=== PATIENT | male | born 1970 ===

== ENCOUNTER 2020-02-02 10:04 | Outpatient (REF) | payer OTHER, MEDICARE, SELFPAY ==
--- NOTE | 2020-02-02 10:12 | XR_ITS ---
EXAMINATION: BILATERAL KNEE X-RAY CLINICAL INFORMATION: Pain COMPARISON: None TECHNIQUE: 3 views of each knee FINDINGS: Left: Bone alignment is normal. No fracture or dislocation is seen. The joint spaces are normal. There is no joint effusion. Right: Bone alignment is normal. No fracture or dislocation is seen. The joint spaces are normal. There is no joint effusion. IMPRESSION: Unremarkable exam.
== END 2020-02-02 10:05 | disposition home or self-care (01) ==
LOC: HO.XRAY 10:04
PROVIDERS: PCP Internal Medicine; Visit Provider Internal Medicine
DX: M25.561 Pain in right knee (principal); M25.562 Pain in left knee
CPT/HCPCS: 73562

== ENCOUNTER 2020-03-18 13:01 | Outpatient (REF) | payer OTHER, SELFPAY | END 2020-03-18 13:02 | disposition home or self-care (01) | LOC: HO.LAB 13:01 | PROVIDERS: Visit Provider Internal Medicine | DX: Z20.828 Contact with and (suspected) exposure to other viral communicable diseases (principal) | CPT/HCPCS: C9803; U0003 ==

== ENCOUNTER 2020-04-11 11:06 | Outpatient (REF) | payer OTHER, SELFPAY ==
[2020-04-11 13:06] LABS: MANUAL DIFF FLAG NO
[2020-04-11 13:15] LABS: Basophils Absolute Auto 0.1 X10*3/uL (0.0-0.2); Basophils Percent Auto 0.8 % (0-2); Eosinophils Absolute Auto 0.3 X10*3/uL (0.0-0.4); Eosinophils Percent Auto 2.2 % (0-4); Hemoglobin 12.2 g/dl (14.0-18.0); Imm Gran Abs Auto 0.04 X10*3/uL (0.00-0.03); Imm Gran Pct Auto 0.3 % (0.0-0.4); Lymphocytes Percent Auto 16.2 % (20-40); Mean Corpuscular HGB Conc 30.5 g/dl (31.0-36.0); Mean Corpuscular Hemoglobin 27.5 pg (27.0-33.0); Mean Corpuscular Volume 90.3 fL (80-98); Mean Platelet Volume 9.5 fL (9.4-12.4); Monocytes Absolute Auto 1.3 X10*3/uL (0.1-1.2); Monocytes Percent Auto 10.4 % (2-11); Neutrophils Absolute Auto 8.5 X10*3/uL (2.0-8.3); Neutrophils Percent Auto 70.1 % (45-73); Platelet Count 584 X10*3/uL (160-400); Red Blood Count 4.43 X10*6/uL (4.60-5.80); Red Cell Distribution Width 12.8 % (11.0-16.0); White Blood Count 12.2 X10*3/uL (4.8-10.8)
== END 2020-04-11 11:07 | disposition home or self-care (01) ==
LOC: HO.LAB 11:06
PROVIDERS: PCP Internal Medicine; Referring Provider Internal Medicine; Visit Provider Internal Medicine
DX: R10.32 Left lower quadrant pain (principal); R19.7 Diarrhea, unspecified; Z20.828 Contact with and (suspected) exposure to other viral communicable diseases
CPT/HCPCS: 36415; 80053; 85025; C9803; U0003

== ENCOUNTER 2020-04-12 13:15 | Outpatient (REF) | payer OTHER, SELFPAY ==
[2020-04-13 12:19] LABS: CDIFF Ag Negative (Negative); CDIFF Internal ctrl Dots and bkg OK (V); CDiff Toxin Negative (Negative)
== END 2020-04-12 13:16 | disposition home or self-care (01) ==
LOC: HO.LNP 13:15
PROVIDERS: Visit Provider Internal Medicine
DX: R10.32 Left lower quadrant pain (principal); R19.7 Diarrhea, unspecified
CPT/HCPCS: 87045; 87046; 87177; 87209; 87324; 87449

== ENCOUNTER 2020-04-22 08:37 | Outpatient (REF) | payer OTHER, SELFPAY ==
[2020-04-22 09:41] LABS: MANUAL DIFF FLAG NO
[2020-04-22 09:42] LABS: Basophils Absolute Auto 0.1 X10*3/uL (0.0-0.2); Basophils Percent Auto 0.6 % (0-2); Eosinophils Absolute Auto 0.5 X10*3/uL (0.0-0.4); Eosinophils Percent Auto 6.2 % (0-4); Hematocrit 39.7 % (42-52); Hemoglobin 12.3 g/dl (14.0-18.0); Imm Gran Abs Auto 0.02 X10*3/uL (0.00-0.03); Imm Gran Pct Auto 0.3 % (0.0-0.4); Lymphocytes Absolute Auto 2.2 X10*3/uL (1.2-4.9); Lymphocytes Percent Auto 27.6 % (20-40); Mean Corpuscular Hemoglobin 27.7 pg (27.0-33.0); Mean Corpuscular Volume 89.4 fL (80-98); Mean Platelet Volume 9.9 fL (9.4-12.4); Monocytes Absolute Auto 0.9 X10*3/uL (0.1-1.2); Monocytes Percent Auto 11.6 % (2-11); Neutrophils Absolute Auto 4.3 X10*3/uL (2.0-8.3); Neutrophils Percent Auto 53.7 % (45-73); Platelet Count 293 X10*3/uL (160-400); Red Blood Count 4.44 X10*6/uL (4.60-5.80); Red Cell Distribution Width 12.8 % (11.0-16.0); White Blood Count 7.9 X10*3/uL (4.8-10.8)
[2020-04-22 10:12] LABS: Alanine Aminotransferase < 6 U/L (0-40); Albumin Level 4.2 g/dL (3.5-5.0); Alkaline Phosphatase 55 U/L (39-117); Anion Gap 12 (12-20); Aspartate Amino Transferase 16 U/L (5-37); Bilirubin Direct 0.3 mg/dL (0.0-0.5); Bilirubin Total 0.9 mg/dL (0.0-1.0); Blood Urea Nitrogen 21 mg/dL (9-16); Calcium 9.8 mg/dL (8.4-10.2); Carbon Dioxide 29 mmol/L (22-29); Chloride 102 mmol/L (96-108); Cholesterol 189 mg/dL; Estimated Glomerular Filt Rate > 60; Glucose Random 105 mg/dL (60-115); HDL Cholesterol 52 mg/dL; LDL Cholesterol Calculated 116 mg/dl; Potassium 4.4 mmol/l (3.3-5.1); Sodium 139 mmol/L (135-145); Total Protein 6.9 g/dL (6.5-8.0); Triglycerides 107 mg/dL
[2020-04-22 10:30] LABS: TSH reflex Free T4 1.02 mIU/mL (0.32-4.0); Vitamin D 25-OH Total 44.6 ng/mL (>30)
== END 2020-04-22 08:38 | disposition home or self-care (01) ==
LOC: HO.LAB 08:37
PROVIDERS: PCP Internal Medicine; Visit Provider Internal Medicine
DX: Z00.00 Encounter for general adult medical examination without abnormal findings (principal)
CPT/HCPCS: 36415; 80048; 80061; 80076; 82306; 84443; 85025

== ENCOUNTER 2020-05-05 08:49 | Outpatient (REF) | payer OTHER, SELFPAY | END 2020-05-05 08:50 | disposition home or self-care (01) | LOC: HO.LAB 08:49 | PROVIDERS: Visit Provider Internal Medicine | DX: Z20.822 Contact with and (suspected) exposure to COVID-19 (principal) | CPT/HCPCS: 36415; C9803; U0003 ==

== ENCOUNTER 2020-11-11 10:01 | Outpatient (REF) | payer OTHER, SELFPAY ==
--- NOTE | ~2020-11-11 | US_ITS ---
EXAMINATION: US ABDOMEN COMPLETE CLINICAL INFORMATION: Abdominal pain. COMPARISON: CT abdomen and pelvis 05/24/2020. Ultrasound abdomen complete 07/14/2015. TECHNIQUE: Real-time imaging of the abdominal viscera. FINDINGS: PANCREAS: Normal. ABDOMINAL AORTA: The proximal, mid, and distal segments are normal in caliber. INFERIOR VENA CAVA: Visualized portions are normal. LIVER: The liver is normal in size and contour. There are hyperechoic areas seen in the periportal region. No corresponding abnormality is seen on CT May 2020 and this may be related to focal fatty infiltration. The largest area measures 1.2 x 1 x 1.2 cm. No other focal liver lesion is seen. There is no biliary duct dilatation. GALLBLADDER: Normal. The gallbladder is physiologically distended without evidence of stones, sludge, polyps, wall thickening or pericholecystic fluid. COMMON BILE DUCT: Normal in caliber measuring 0.3 cm in diameter. RIGHT KIDNEY: There is mild caliectasis. This is similar to previous exam. No renal calculi or focal parenchymal lesions. The kidney measures 10.8 cm in maximum dimension. LEFT KIDNEY: Mild caliectasis. This is similar to previous exam. No renal calculi or focal parenchymal lesions. The kidney measures 10.3 cm in maximum dimension. SPLEEN: Normal. The spleen measures 9.8 cm in maximum dimension. FREE FLUID: None. US/US abdomen complete IMPRESSION: Hyperechoic areas seen in the central periportal region of the liver. No corresponding abnormality seen on recent CT scan this may be related to focal fatty infiltration. This could be further evaluated with liver MRI if clinically indicated. Mild bilateral caliectasis similar to previous exams.
== END 2020-11-11 10:02 | disposition home or self-care (01) ==
LOC: HO.HMGCX 10:01
PROVIDERS: PCP Internal Medicine; Visit Provider Internal Medicine
DX: R10.10 Upper abdominal pain, unspecified (principal)
CPT/HCPCS: 76700

== ENCOUNTER 2020-11-22 10:47 | Outpatient (REF) | payer OTHER, SELFPAY | END 2020-11-22 10:48 | disposition home or self-care (01) | LOC: HO.LAB 10:47 | PROVIDERS: PCP Internal Medicine; Visit Provider Internal Medicine | DX: Z20.822 Contact with and (suspected) exposure to COVID-19 (principal) | CPT/HCPCS: C9803; U0003; U0005 ==

== ENCOUNTER → 2021-08-10 09:22 | Outpatient (BNVA) | payer OTHER, SELFPAY | PROVIDERS: PCP Internal Medicine; Visit Provider Urology | DX: N40.1 Benign prostatic hyperplasia with lower urinary tract symptoms (principal); N13.8 Other obstructive and reflux uropathy; R35.1 Nocturia; R35.0 Frequency of micturition; R39.15 Urgency of urination | CPT/HCPCS: 51798; 99202 ==

== ENCOUNTER → 2021-11-16 10:50 | Outpatient (BNVA) | payer OTHER, SELFPAY | PROVIDERS: PCP Internal Medicine; Visit Provider Urology | DX: N40.1 Benign prostatic hyperplasia with lower urinary tract symptoms (principal); R35.0 Frequency of micturition; R39.15 Urgency of urination; N40.0 Benign prostatic hyperplasia without lower urinary tract symptoms; N31.8 Other neuromuscular dysfunction of bladder | CPT/HCPCS: 51798; 99212 ==

== ENCOUNTER → 2022-01-02 13:13 | Outpatient (BNVA) | payer OTHER, SELFPAY | PROVIDERS: PCP Internal Medicine; Referring Provider Internal Medicine; Visit Provider Internal Medicine | DX: R60.0 Localized edema (principal) | CPT/HCPCS: 93005; 99202 ==

== ENCOUNTER → 2022-01-04 10:36 | Outpatient (BNVA) | payer OTHER, SELFPAY | PROVIDERS: PCP Internal Medicine; Visit Provider Urology | DX: N32.0 Bladder-neck obstruction (principal); R35.1 Nocturia; R39.15 Urgency of urination | CPT/HCPCS: 52000; 99212 ==

== ENCOUNTER → 2022-01-26 10:30 | Outpatient (REF) | payer OTHER, SELFPAY ==
--- NOTE | 2022-01-26 10:33 | CA_ITS ---
Transthoracic Echocardiogram Patient (Last, First, Middle): Roshan Beach, Gender: Male Date of : 1970 Age: 51 Procedure Date: 01/26/2022 Procedure Type: Transthoracic Echocardiogram Location: OP Height: 172.72 cm Weight: 67.13 kg BSA: 1.80 m2 Heart Rate: bpm BP: 112 / 80 mmHg Executive Candidate Developer: TO Referring MD: Toni Rolle MD Symptoms: R60.0 - Localized edema Study Quality: Fair ECG Rhythm: Sinus Conclusions: - The left ventricular systolic function is mildly decreased. The visually estimated ejection fraction is between 40-45%. - No obvious valvular pathology seen on this study. Findings Left Ventricle Mildly increased left ventricular cavity size. There is normal left ventricular wall thickness. The left ventricular systolic function is mildly decreased. The visually estimated ejection fraction is between 40-45%. There is mild global hypokinesis. Diastolic function is normal for age. Right Ventricle Normal right ventricular cavity size and systolic function. Atria Both atria are normal in size. Aortic Valve There is a normal trileaflet aortic valve. There is no aortic valve stenosis. There is no aortic valve regurgitation. Mitral Valve The mitral valve appears normal. There is trace mitral valve regurgitation. There is no mitral valve stenosis. Pulmonic Valve The pulmonic valve is likely normal. Tricuspid Valve Normal tricuspid valve structure. There is mild tricuspid valve regurgitation. There is no evidence of pulmonary hypertension. Great Vessels The asc aorta is normal in size. Venous The inferior vena cava is normal in size and collapses greater than 50% with inspiration. Pericardium/Pleural There is no evidence of pericardial effusion. Prior Study Comparison Changes noted compared to prior study dated: 08/02/1999. LVEF slightly lower than prior study. Recommendations, Care & Conclusions No obvious valvular pathology seen on this study. Measurements 2D Linear Measurements IVSd: 0.78 0.6-0.9/0.6-1.0 cm LVIDd: 5.73 3.9-5.3/4.2-5.9 cm LVIDd Index: 3.18 2.4-3.2/2.2-3.1 cm/m2 LVIDs: 4.29 2.0-3.6 cm LVPWd: 0.76 0.7-1.1 cm LA Diam: 3.20 2.7-3.8/3.0-4.0 cm LAIDs Index: 1.78 1.5-2.3 cm/m2 LV Mass: 203.79 67-162/88-224 g LV Mass Index: 113.22 43-95/49-115 g/m2 LVOT Diam: 2.10 3.0+(-)1.3 cm 2D Systolic Function EF 4C: 49.10 >55% Mitral Valve MV Pk E: 0.51 MV PK A: 0.39 MV Decel Time: 121.00 E/A: 1.30 E'Lateral: 8.92 E'Medial: 5.33 E/E' Med: 9.60 E/E' Lat: 5.80 PHT: 35.00 MVA PHT: 6.29 Decel [place]: 4.25 Aortic Valve AoV Pk Bernard: 1.33 AoV Mn Bernard: 0.92 AoV VTI: 0.24 AoV Pk Grad: 7.00 Aov Mn Grad: 4.00 LORENZO Cont.VTI: 2.11 LVOT LVOT Pk Bernard: 0.77 LVOT Mn Bernard: 0.51 LVOT VTI: 0.15 LVOT Pk Grad: 2.00 LVOT Mn Grad: 1.00 LVOT Diam: 2.10 LVOT Area: 3.46 Diastolic Function MV Pk E: 0.51 MV Pk A: 0.39 E/A: 1.30 E'Medial: 5.33 E/E' Med: 9.60 E' Laterial: 8.92 E/E' Lat: 5.80 Right Ventricle TAPSE (mm): 18.70 TVS' Bernard: 10.10 Tricuspid Valve TR Pk Bernard: 2.46 TR Pk Grad: 24.00 RA Press: 3.00 RVSP: 27.00 Great Vessels Aorta Sinus of Valsalva: 3.05 2.0-3.[address] [place]: 2.07 1.7-3.4 cm Ao Asc: 3.20 2.1-3.4 cm Updated in Other Vendor System with Status of Final Toni Rolle MD electronically signed on 01/28/2022 11:05:27 AM with status of Final
== END ==
LOC: HO.CARD 10:30
PROVIDERS: Visit Provider Internal Medicine
DX: R60.0 Localized edema (principal)
CPT/HCPCS: 93306

== ENCOUNTER → 2022-03-06 11:03 | Outpatient (BNVA) | payer OTHER, SELFPAY | PROVIDERS: PCP Internal Medicine; Visit Provider Urology | DX: N32.0 Bladder-neck obstruction (principal); R35.1 Nocturia | CPT/HCPCS: Q3014 ==

== ENCOUNTER → 2022-04-03 09:32 | Outpatient (REF) | payer OTHER, SELFPAY ==
--- NOTE | ~2022-04-03 | NM_ITS ---
Lexiscan Myocardial perfusion study Indication: Cardiomyopathy, assess for coronary disease and ischemia Technique: The patient was brought in for a Lexiscan perfusion study on 04/03/2022 and was injected 0.4 mg of Lexiscan intravenously. Within a minute of this injection 25 mCi of sestamibi was given intravenously. Images were obtained using the SPECT gamma camera interlaced with the gating device. Images were obtained in supine position. Resting perfusion study was performed on 04/04/2022. Patient was administered 25 mCi of sestamibi intravenously at rest. Images were then obtained in supine position. Images were processed with the software and compared side to side in short axis, horizontal long axis and vertical long axis views. Total DLP 89mGy-cm. Findings: Raw acquisition reviewed. The stress perfusion study showed diminished tracer uptake along the inferior wall, basal inferior septum. There is significant improvement with CT attenuation correction suggestive of diaphragmatic attenuation artifact. The gated study shows diminished LV systolic function with calculated LVEF of 46%. LV cavity is normal in size. The gated study shows globally reduced wall thickening and contraction of segments. Resting study shows diminished tracer uptake along the inferior wall. Slight improved compared to stress acquisition. However, with CT attenuation correction resolves completely. Gating at rest reveals globally reduced wall thickening and contraction with LVEF of 48%. The findings are consistent with inferior defect with reversible and fixed components, suspected to be from diaphragmatic attenuation artifact. NM/NM jessy perf SPECT rest & str Impression: 1. Myocardial perfusion imaging study shows likely normal myocardial perfusion. 2. Gated LVEF is 46% during stress and 48% during rest. 3. Transient ischemic dilatation not present. EKG component of the test reported separately.
--- NOTE | 2022-04-03 10:19 | CA_ITS ---
Acquisition Time: 2022-04-03 10:26:24 Total Exercise Time: 00:02:00 Test Indications: I42.9 Medications: SEE CHART Protocol: LEXISCAN Max HR: 150 BPM 89% of Pred: 168 BPM Max BP: 128/080 mmHG Max Work Load: 1.0 METS Pharmacological stress test with Lexiscan injection, while sitting and kicking his legs, without anginal symptoms, without arrythmia, with normotensive response to injection, with nondiagnostic EKG for ischemia. In recovery he was treated with Aminophylline 75mg IVP to reverse Lexiscan. Nuclear images pending. Test reviewed with Dr Sims. Referred By: Toni Rolle Overread By: SIDDHARTH OBRIEN
== END ==
LOC: HO.CARD 09:32
PROVIDERS: Visit Provider Internal Medicine
DX: I42.9 Cardiomyopathy, unspecified (principal)
CPT/HCPCS: 78452; 93017; A9500; J0280

== ENCOUNTER 2022-05-21 05:54 | Day surgery (SDC) | payer OTHER, SELFPAY ==
[2022-05-21] VITALS (7 sets, daily range): BP systolic 95–153; BP diastolic 64–98; PULSE 101–117; RESP 20; TEMP 36.8–37.4; O2SAT 95–99; BMI 27.7
[2022-05-21] MEDS: Lactated Ringers 1,000 ML 50 ML IVCONT (06:44)
[2022-05-21 06:49] LABS: Glucose, Whole Blood 186 mg/dL (60-115)
--- NOTE | 2022-05-21 07:22 | HO.ANESPROP2 ---
HPI - Anesthesia Eval Consult details Narrative: laser prostate PMFSH Active Problems Active Problems: All Active Problems (Updated 01/28/22 @ 12:31 by Toni Rolle MD) Cardiomyopathy (Acute) Leg edema (Acute) Nocturia more than twice per night (Acute) Urinary urgency (Acute) Bladder outlet obstruction (Acute) Past Medical History Medical History CKD (chronic kidney disease) Diabetes mellitus, type II Idiopathic scoliosis Mental disability Microalbuminuria Pain of right lower extremity Vitamin D deficiency Family History Family History Father No problems noted. Mother Heart problem Family history of problems with anesthesia: No Surgical History Surgical History History of surgery History of Problems with Anesthesia: No Social History Social History Patient Tobacco Use Status: Never used Tobacco Use of substances other than those prescribed or required for medical reasons: No Are you DNR?: No Advance Directives: No Advance Directives Information Provided: Yes Meds Allergies Allergy/AdvReac Type Severity Reaction Status Date / Time No Known Allergies Allergy Verified 05/14/22 15:46 Active Medications: Current Medications Lactated Ringer's (Lr) 1,000 mls @ 50 mls/hr IVCONT .Q20H KASSY Last Admin: 05/21/22 06:44 Dose: 50 mls/hr Home Medications Medication Instructions Recorded Confirmed Last Taken Type atorvastatin 40 mg tablet 40 mg PO DAILY 11/15/21 03/14/22 Unknown History blood sugar diagnostic (Freeyle #10 ea 11/15/21 01/02/22 Unknown History Lite Strips) ergocalciferol (vitamin D2) 1,250 1,250 mcg PO QWEEK 11/15/21 03/14/22 Unknown History mcg (50,000 unit) capsule ferrous sulfate 325 mg (65 mg 325 mg PO BID 11/15/21 03/14/22 Unknown History iron) tablet,delayed release lisinopril 40 mg tablet 40 mg PO DAILY 11/15/21 03/14/22 Unknown History melatonin 5 mg tablet 5 mg PO BEDTIME 11/15/21 03/14/22 Unknown History omeprazole 20 mg capsule,delayed 20 mg PO QAM 11/15/21 03/14/22 Unknown History release pantoprazole 40 mg tablet,delayed 40 mg PO DAILY 11/15/21 03/14/22 Unknown History release sennosides 8.6 mg tablet (senna) 17.2 mg PO DAILY 11/15/21 03/14/22 Unknown History lancets 28 gauge (FreeStyle #100 ea 01/03/22 Unknown History Lancets) Exam Exam Date and Time: May 21, 2022 0722 Height,Weight and Vital Signs: Height 5 ft 4 in Weight 73.255 kg Last Vital Signs Temp 98.2 F 05/21/22 06:30 Pulse 103 H 05/21/22 06:51 Resp 20 05/21/22 06:30 BP 153/98 H 05/21/22 06:30 Pulse Ox 99 05/21/22 06:30 O2 Del Method 05/21/22 06:30 Pertinent Lab Results Pertinent Lab Results: Laboratory Tests 05/21/22 06:40 POC Glucose 186 H Airway Mallampati Class: III (Limited mouth opening, bucked teeth.) TM Dist: >3cm Neck ROM: Full Loose/Missing/Broken Teeth: Yes and Upper Heart: ok Lungs: ok Assessment and Plan Assessment Anesthesia Assessment: Anesthesia Plan Discussed and Chart Reviewed Final Anesthetic Review Family History of Problems with Anesthesia: No History of Problems with Anesthesia: No NPO: Yes ASA Class: IV Final Preanesthetic Review: No Changes in Pt Med Stat, Meds/Allgs Chart Reviewed, Consent Obtained/Reviewed and Anes Risks/Benef Reviewed Patient Risk: High Procedure Risk: Low Anesthetic Plan Anesthetic Plan: GA and Agree w/ Assess. and Plan Disposition: Standard PACU
--- NOTE | 2022-05-21 07:35 | MHC.SHP ---
Pre-Procedural Eval Section A Date of Service: 05/21/22 The patient is an INPATIENT: No Changes since office visit: No Cold of Flu in the past 2 weeks, No New Medical Problems, No Changes in Medication and No Patient answered all questions The History & Physical has been completed within 30 days and I have reviewed it.: Yes Section B Chief Complaint: Bladder-neck obstruction Allergies: Allergies Allergy/AdvReac Type Severity Reaction Status Date / Time No Known Allergies Allergy Verified 05/14/22 15:46 Review of Systems Sugical H&P ROS: Negative: Constitution, Cardiovascular, Respiratory, Neurological, Psychiatric, Hem-Onc, Allergic/Immunologic, Gastrointestinal, Genitourinary, Musculoskeletal, Integumentary, Endocrine and Eyes/Ears/Nose/Throat Exam Surgical H&P Exam: Normal: HEENT, Normal: Heart, Normal: Lungs, Normal: Extremities, Normal: Abdomen, Normal: Skin and Normal: Neurological Plan Diagnosis/Plan: Unchanged (green loght laser prostate enucleation) I have reviewed the history and physical and performed a pertinent physical examination on my patient. No changes have occurred unless specified. Time Spent With Patient Time: Total time managing care of this patient today ____ minutes.
--- NOTE | 2022-05-21 08:31 | W.PM.OPN ---
Operative Note Operative Note Date of Service: 05/21/22 Narrative: PreOperative Diagnosis: Bladder outlet obstruction Post Operative Diagnosis: Bladder outlet obstruction Procedure: GreenLight Laser Enucleation of the prostate Surgeon: Dr Charles Castaneda Anesthesia: General History of bladder outlet obstruction. Treated with alpha-michelle and other medications. Still with symptoms. On cystoscopy in office has tight bladder neck. Recommendation for prostate procedure with laser enucleation of prostate. Risks and benefits have been discussed. Focus was placed on development of retrograde ejaculation which is a normal part of this procedure. Procedure: After informed consent was verified the patient was brought to the operating room and placed in a supine position. Anesthesia was administered per protocol. Patient was placed in modified dorsal lithotomy position and prepped and draped in a sterile fashion. Safety pause time-out was confirmed. Antibiotics have been given. A Twenty-four Togolese laser cystoscope was inserted per urethra. No abnormalities were found of the anterior and bulbar urethra. The bladder was examined and both ureteric orifices were seen in their normal positions away from the area of interest. Using a GreenLight laser with settings of 80 w incisions were made at the 5 and 7 o'clock position. The incisions were taken down from the bladder neck down to the level of the veru. These were gradually deepened in order to define the lateral aspects of the median lobe area. Once clearly defined they will also extended in the lateral directions in order to create a deep groove. The median lobe was then ablated and enucleated tissue released into the bladder with the laser power increased to 120 W. Once the median lobe area had been cleared attention was directed to the lateral lobes. Starting with the patient's left lateral lobe. First the 05:00 o'clock groove was further developed. This was moved in the lateral direction to undermine the tissue on the lateral side running from the bladder neck to the prostate apex. Focus was then placed on the laser at the 1 o'clock position to developing a secondary groove down to the level of bladder fibers. The creation of a second deep groove defined a segment of intervening tissue similar to a slice of orange. At the apex of the prostate the 2 grooves were linked the us releasing the intervening tissue. This tissue was then removed with a combination of enucleation and ablation working from the apex toward the bladder neck. A similar procedure was repeated on the patient's right-hand side. The only differences being the position of the lateral groove at he 7 'oclock positioin and the secondary groove at the 11 o'clock position, Otherwise the procedure was developed in a mirror fashion. After the majority of tissue had been debulked remnant tissue was ablated with the side fire laser and the curve of the prostate followed up each side wall clearly defining the anterior remnant strip that remained between the 11 and 1 o'clock positions. When this was had been completed debris and pieces of prostate were removed from the bladder with irrigation. Both ureteric orifices were reviewed again in shown to be patent in away from any areas of energy damage. The apical area was reviewed in any stray ooze was controlled. A 22 Togolese 30 cc balloon Varghese catheter was placed over a stylet into the bladder. Clear efflux was obtained upopn irrigation with a Ashley piston syringe. 30 cc was placed in the balloon and gentle traction was placed. A snap was used to hold tension on the catheter to control bleeding during patient moved and transported. A drainage bag was placed. Once transportation is complete to the PACU the snap will be removed. The patient tolerated the procedure well, he was extubated in the operating and transferred in a stable condition to the recovery area. Total Power 25 kW Lasing time [] Pathology: - Drains: Varghese catheter
[2022-05-21] MEDS: traMADoL HCL 50 MG TABLET PO (08:43)
== END 2022-05-21 09:39 | disposition home or self-care (01) ==
PROVIDERS: PCP Internal Medicine; Visit Provider Urology
PROC: (CPT 52648; principal; 2022-05-21 07:30)
DX: N32.0 Bladder-neck obstruction (principal); R35.1 Nocturia; E11.22 Type 2 diabetes mellitus with diabetic chronic kidney disease; I12.9 Hypertensive chronic kidney disease with stage 1 through stage 4 chronic kidney disease, or unspecified chronic kidney disease; N18.9 Chronic kidney disease, unspecified; R62.50 Unspecified lack of expected normal physiological development in childhood; E55.9 Vitamin D deficiency, unspecified; R60.0 Localized edema; Z79.899 Other long term (current) drug therapy
CPT/HCPCS: 52648; 82947; J1956; J2250; J3010

== ENCOUNTER → 2022-05-24 09:59 | Outpatient (BNVA) | payer OTHER, SELFPAY | PROVIDERS: PCP Internal Medicine; Visit Provider Urology | DX: N32.0 Bladder-neck obstruction (principal) | CPT/HCPCS: 51700; 51798 ==

== ENCOUNTER → 2022-07-05 09:19 | Outpatient (BNVA) | payer OTHER, SELFPAY | PROVIDERS: PCP Internal Medicine; Visit Provider Urology | DX: R35.1 Nocturia (principal); R39.15 Urgency of urination | CPT/HCPCS: 51798; 99212 ==

== ENCOUNTER 2022-07-09 08:43 | Outpatient (REF) | payer OTHER, SELFPAY ==
--- NOTE | ~2022-07-09 | US_ITS ---
EXAMINATION: US ABDOMEN COMPLETE CLINICAL INFORMATION: Right and left upper quadrant pain. COMPARISON: Ultrasound abdomen complete 11/11/2020 and 07/14/2015. TECHNIQUE: Real-time imaging of the abdominal viscera. FINDINGS: PANCREAS: Normal. ABDOMINAL AORTA: The proximal, mid, and distal segments are normal in caliber. INFERIOR VENA CAVA: Visualized portions are normal. LIVER: The liver is enlarged with increased echogenicity with focal fatty sparing. It measures 17 cm. There is mild increased echogenicity. The liver contour is normal. No focal hepatic lesion. There is no intrahepatic biliary duct dilatation seen. GALLBLADDER: Gallbladder wall thickness measures 0.2 cm. The gallbladder is physiologically distended without evidence of stones, sludge, polyps, wall thickening or pericholecystic fluid. COMMON BILE DUCT: Normal in caliber measuring 0.2 cm in diameter. RIGHT KIDNEY: There is mild dilated caliectasis. There are vascular calcifications in the midpole measuring 0.9 x 0.3 cm. No hydronephrosis. No renal calculi or focal parenchymal lesions. The kidney measures 11.3 cm in maximum dimension. LEFT KIDNEY: There is echogenic upper pole calculi measuring 0.3 x 0.3 cm with mild caliectasis. No hydronephrosis or focal parenchymal lesions. The kidney measures 10.6 cm in maximum dimension. SPLEEN: Normal. The spleen measures 7.6 cm in maximum dimension. FREE FLUID: None. US/US abdomen complete IMPRESSION: 1. Diffuse fatty infiltration of liver with focal fatty sparing. 2. Mild dilated caliectasis right kidney. 3. Nonobstructive echogenic calculi upper pole left kidney. . 4. The rest of the abdominal ultrasound is unremarkable.
== END 2022-07-09 08:44 | disposition home or self-care (01) ==
LOC: HO.US 08:43
PROVIDERS: PCP Internal Medicine; Visit Provider Internal Medicine
DX: R10.11 Right upper quadrant pain (principal)
CPT/HCPCS: 76700

== ENCOUNTER → 2022-09-13 09:48 | Outpatient (BNVA) | payer OTHER, SELFPAY | PROVIDERS: PCP Internal Medicine; Visit Provider Urology | DX: R39.15 Urgency of urination (principal); R35.0 Frequency of micturition; R35.1 Nocturia; N32.0 Bladder-neck obstruction; Z79.899 Other long term (current) drug therapy | CPT/HCPCS: 99212 ==

== ENCOUNTER → 2022-10-18 09:24 | Outpatient (BNVA) | payer OTHER, SELFPAY | PROVIDERS: PCP Internal Medicine; Visit Provider Surgery Vascular Surgery | DX: I83.11 Varicose veins of right lower extremity with inflammation (principal) | CPT/HCPCS: 99202 ==

== ENCOUNTER 2022-11-07 10:15 | Outpatient (REF) | payer OTHER, SELFPAY ==
--- NOTE | ~2022-11-07 | US_ITS ---
EXAMINATION: US VENOUS ULTRASOUND WITH DOPPLER LOWER EXTREMITY, BILATERAL CLINICAL INFORMATION: Varicose veins of right lower extremity with inflammation. COMPARISON: None available. TECHNIQUE: Color flow triplex imaging and compression Doppler was performed to evaluate both the deep and the superficial systems of the bilateral lower extremity. To evaluate the superficial system, the examination was performed in the upright position. Color-flow Doppler ultrasound and compression ultrasound were utilized. In addition, maneuvers were utilized to demonstrate reflux. FINDINGS: Right: 1. DEEP VENOUS DOPPLER ULTRASOUND: Common Femoral Vein: Compressible, normal respiratory variation and augmented flow. Femoral vein: Compressible, normal color flow and augmentation. Popliteal Vein: Compressible, normal augmentation. Deep Reflux: Greater than 2 seconds reflux in the mid femoral vein and popliteal vein. There is no evidence of a Srivastava's cyst. 2. SUPERFICIAL VENOUS DOPPLER ULTRASOUND: GREAT SAPHENOUS VEIN: Saphenofemoral junction: 0.6 cm; No evidence of reflux. Proximal thigh: 0.2 cm; No evidence of reflux. Mid thigh: 0.2 cm; 1.6 seconds reflux Above knee: 0.2 cm; greater than 2 seconds reflux At knee: 0.1 cm; 0.8 second reflux Below knee: 0.1 cm; No evidence of reflux. Mid calf: 0.2 cm; No evidence of reflux. Ankle: 0.2 cm; 0.5 second reflux DUPLICATED GREAT SAPHENOUS VEIN: None SMALL SAPHENOUS VEIN: Saphenopopliteal junction: 0.7 cm; No evidence of reflux. Mid calf: 0.1 cm; No evidence of reflux. Distal calf: 0.2 cm; No evidence of reflux. VEIN OF GIACOMINI: None Imaged. PERFORATORS: None significant on the right; VARICOSITIES: None on the right. Left: 1. DEEP VENOUS DOPPLER ULTRASOUND: Common Femoral Vein: Compressible, normal respiratory variation and augmented flow. Femoral vein: Compressible, normal color flow and augmentation. Popliteal Vein: Compressible, normal augmentation. Deep Reflux: Greater than 1.8 second reflux in the mid femoral vein and greater than 2 seconds reflux in the popliteal vein. There is no evidence of a Srivastava's cyst. 2. SUPERFICIAL VENOUS DOPPLER ULTRASOUND: GREAT SAPHENOUS VEIN: Saphenofemoral junction: 0.5 cm; No evidence of reflux. Proximal thigh: 0.4 cm; 1.7 second reflux Mid thigh: 0 4 cm; 1.3 seconds reflux Above knee: 0.3 cm; greater than 2.4 seconds reflux At knee: 0.1 cm; No evidence of reflux. Below knee: 0.1 cm; No evidence of reflux. Mid calf: 0.1 cm; No evidence of reflux. Ankle: 0.3 cm; No evidence of reflux. DUPLICATED GREAT SAPHENOUS VEIN: None SMALL SAPHENOUS VEIN: Saphenopopliteal junction: 0.1 cm; No evidence of reflux. Mid calf: 0.1 cm; No evidence of reflux. Distal calf: 0.1 cm; No evidence of reflux. VEIN OF GIACOMINI: None Imaged. PERFORATORS: 2 mm heart doctor in the distal thigh with no reflux. 1 mm heart doctor in the proximal calf with no reflux. 4 mm heart doctor in the mid calf with no reflux. VARICOSITIES: 3 mm varicosity at the knee with greater than 2 seconds reflux. US/US venous duplex LE BI IMPRESSION: Right: No evidence of DVT. Deep venous reflux in the mid femoral and popliteal veins. Right greater saphenous vein reflux measuring maximum greater than 2 seconds at the knee. Left: No evidence of DVT. Deep venous reflux in the mid femoral and popliteal veins. Left greater saphenous vein reflux measuring maximum greater than 2.4 seconds above the knee. Perforators in the thigh and calf without reflux. Varicosity with greater than 2 seconds reflux at the knee.
== END 2022-11-07 10:16 | disposition home or self-care (01) ==
LOC: HO.US 10:15
PROVIDERS: PCP Internal Medicine; Visit Provider Surgery Vascular Surgery
DX: I83.11 Varicose veins of right lower extremity with inflammation (principal)
CPT/HCPCS: 93970

== ENCOUNTER 2022-12-11 09:03 | Outpatient (AMB) | payer OTHER, SELFPAY ==
--- NOTE | 2022-12-11 09:04 | A.OFFVIS_ITS ---
Intake Intake Visit Reasons: follow up s/p US 11/07 Intake Note: follow up bilateral LE US 11/07/22, pt states that bilateral LE are swelling and pain. Pt states that he wears compression socks as needed, seem to help a little bit but they feel very tight and he takes them off Accompanied by: Sister Allergies No Known Allergies Allergy (Verified 12/11/22 09:08) HPI follow up s/p US 11/07 HPI Details Pleasant 52-year-old gentleman presents for follow-up regarding venous insufficiency he had been complaining of pain and discomfort of bilateral lower extremities but appears to be left more so than right. He now presents for follow-up with family meds member present. He has had no other interval changes. He has had a trial of compression stockings which have provided minimal relief. [facility] Medical History CKD (chronic kidney disease) Diabetes mellitus, type II Idiopathic scoliosis Mental disability Microalbuminuria Pain of right lower extremity Vitamin D deficiency Surgical History History of surgery Family History Father No problems noted. Mother Heart problem Social History Patient Tobacco Use Status: Never used Tobacco Review of Systems Const Reports as per HPI ENT Reports no additional complaints Card Denies chest pain, Denies chest pain at rest and Denies chest pain with activity Resp Denies chest congestion and Denies cough GI Reports no additional complaints Musc Details: pain over varicosities, aching of lower extremities, swelling, cramping, heaviness and tiredness, itching Denies abnormal gait Skin/Breast Reports pruritus and Denies wounds Neuro Reports no additional complaints and Denies abnormal gait Psych Denies no additional complaints Physical Exam Const General: cooperative, healthy appearing and comfortable Orientation/consciousness: oriented to person, oriented to place and oriented to time Neck Carotids: no bruits Chest Chest palpation & inspection: normal inspection of the chest and normal palpation of entire chest wall Resp Effort & Inspection: normal respiratory effort and able to speak in complete sentences Cardio Rate: regular rate Heart sounds: S1 normal heart sound present and S2 normal heart sound present Peripheral pulses: Peripheral pulses 2+ throughout GI Inspection: Yes normal to inspection Skin Other: +2 edema, CEAP Classification C4 - skin color changes Ep - Etiology Primary As - superficial veins P - reflux General skin exam: dry skin Neuro General: oriented to person, oriented to place and oriented to time Extrem Right lower extremity: full ROM, normal capillary refill and edema Left lower extremity: full ROM, normal capillary refill and edema Psych Mental Status: mental status grossly normal Results Reviewed Results Reviewed: Brief summary of venous insufficiency testing is as follows: right great saphenous vein: Positive but small in caliber right small saphenous vein: negative right accessory vein: none present left great saphenous vein: Positive left small saphenous vein: negative left accessory vein: none present Please note there is no evidence of any venous aneurysms or significant tortuosity Assessment & Plan Assessment & Plan (1) Varicose veins of left lower extremity with inflammation: Code(s): I83.12 - Varicose veins of left lower extremity with inflammation Plan: This patient has varicose veins with inflammation. They continue to be a source of discomfort for the patient. The patient has tried conservative treatment with compression, leg elevation and exercise program for over 3 months time. They have been compliant with all treatment. This has provided minimal relief for the patient. I do not anticipate this course of treatment will alter the underlying etiology. The patient has been scheduled for lower extremity venous treatment inclusive of --- left great saphenous vein Cyanoacralate ablation. Risks, benefits, and complications of this procedure has been discussed in detail with the patient including but not limited to bleeding, infection, and the development of a DVT. The patient has demonstrated a clear understanding and has consented. We will schedule the patient as soon as possible. Thank you for allowing us to participate in this patient's care. If there are any questions or concerns please do not hesitate to contact us. Coding Level of Care Code Est Pt Level 4 (78552) Diagnoses Varicose veins of left lower extremity with inflammation I83.12
== END 2022-12-11 09:31 | disposition home or self-care (01) ==
PROVIDERS: PCP Internal Medicine; Visit Provider Surgery Vascular Surgery
DX: I83.12 Varicose veins of left lower extremity with inflammation (principal)
CPT/HCPCS: 99214

== ENCOUNTER → 2022-12-11 09:03 | Outpatient (BNVA) | payer OTHER, SELFPAY | PROVIDERS: PCP Internal Medicine; Visit Provider Surgery Vascular Surgery | DX: I83.12 Varicose veins of left lower extremity with inflammation (principal) | CPT/HCPCS: 99212 ==

== ENCOUNTER → 2022-12-20 10:16 | Outpatient (REF) | payer OTHER, SELFPAY ==
--- NOTE | 2022-12-20 10:19 | CA_ITS ---
Transthoracic Echocardiogram Patient (Last, First, Middle): Roshan Beach, Gender: Male Date of : 1970 Age: 52 Procedure Date: 12/20/2022 Procedure Type: Transthoracic Echocardiogram Location: OP Height: 182.88 cm Weight: 69.85 kg BSA: 1.91 m2 Heart Rate: bpm BP: 122 / 82 mmHg Board Winder: TO Referring MD: Toni Rolle MD Symptoms: I42.9 - Cardiomyopathy, unspecified Study Quality: Technically Difficult Conclusions: - 1. Moderately reduced LV systolic function with LVEF of 35-40% with impaired relaxation filling pattern 2. Mildly dilated right ventricle with low normal LV systolic function 3. Mildly dilated left atrium 4. Cardiac valvular Dopplers within normal limits 5. Normal RV systolic pressure 6. Upper limits normal ascending aortic size of 3.5 cm 7. No gross pericardial effusion Findings Left Ventricle Normal left ventricular cavity size. There is normal left ventricular wall thickness. The left ventricular systolic function is moderately decreased. The visually estimated ejection fraction is between 35-40%. Regional wall motion abnormalities can not be excluded due to suboptimal endocardial definition. Spectral Doppler is indicative of an impaired relaxation filling pattern. E/E prime ratio is between 8 and 15 consistent with indeterminate filling pressures. Right Ventricle Mildly increased right ventricular cavity size. There is low normal right ventricular systolic function. Atria The left atrium is mildly dilated. Interatrial shunt cannot be excluded. The right atrium is normal in size. Aortic Valve Normal aortic valve structure and function. There is no aortic valve stenosis. There is no aortic valve regurgitation. Mitral Valve Normal mitral valve structure and function. There is trace mitral valve regurgitation. There is no mitral valve stenosis. Tricuspid Valve Normal tricuspid valve structure. There is trace tricuspid valve regurgitation. The right ventricular systolic pressure is normal. The right ventricular systolic pressure is 24 mmHg. Normal right atrial pressure. There is no evidence of pulmonary hypertension. Great Vessels The pulmonary artery was not well visualized. Venous The inferior vena cava is normal in size and collapses greater than 50% with inspiration. Pericardium/Pleural There is no evidence of pericardial effusion. Prior Study Comparison Changes noted compared to prior study dated: 01/26/2022. LV systolic function is marginally reduced Measurements 2D Linear Measurements IVSd: 0.80 0.6-0.9/0.6-1.0 cm LVIDd: 4.60 3.9-5.3/4.2-5.9 cm LVIDd Index: 2.41 2.4-3.2/2.2-3.1 cm/m2 LVIDs: 3.70 2.0-3.6 cm LVPWd: 0.80 0.7-1.1 cm LA Diam: 2.80 2.7-3.8/3.0-4.0 cm LAIDs Index: 1.47 1.5-2.3 cm/m2 LV Mass: 146.63 67-162/88-224 g LV Mass Index: 76.77 43-95/49-115 g/m2 LVOT Diam: 2.00 3.0+(-)1.3 cm 2D Systolic Function EF 4C: 39.10 >55% Mitral Valve MV Pk E: 0.48 MV PK A: 0.38 MV Decel Time: 135.00 E/A: 1.30 E'Lateral: 6.64 E'Medial: 4.24 E/E' Med: 11.40 E/E' Lat: 7.30 PHT: 39.00 MVA PHT: 5.64 Decel Dooly: 3.60 Aortic Valve AoV Pk Bernard: 1.25 AoV Mn Bernard: 0.86 AoV VTI: 0.21 AoV Pk Grad: 6.00 Aov Mn Grad: 3.00 LORENZO Cont.VTI: 1.74 LVOT LVOT Pk Bernard: 0.62 LVOT Mn Bernard: 0.47 LVOT VTI: 0.11 LVOT Pk Grad: 2.00 LVOT Mn Grad: 1.00 LVOT Diam: 2.00 LVOT Area: 3.14 Diastolic Function MV Pk E: 0.48 MV Pk A: 0.38 E/A: 1.30 E'Medial: 4.24 E/E' Med: 11.40 E' Laterial: 6.64 E/E' Lat: 7.30 Right Ventricle TAPSE (mm): 16.10 TVS' Bernard: 9.46 Tricuspid Valve TR Pk Bernard: 2.29 TR Pk Grad: 21.00 RA Press: 3.00 RVSP: 24.00 Great Vessels Aorta Sinus of Valsalva: 3.00 2.0-3.[address] Ridge: 2.30 1.7-3.4 cm Ao Asc: 3.50 2.1-3.4 cm Updated in Other Vendor System with Status of Final Jacob Naqvi MD electronically signed on 12/21/2022 12:54:04 PM with status of Final
== END ==
LOC: HO.CARD 10:16
PROVIDERS: PCP Internal Medicine; Visit Provider Internal Medicine
DX: I42.9 Cardiomyopathy, unspecified (principal)
CPT/HCPCS: 93306

== ENCOUNTER → 2022-12-20 10:19 | Outpatient (BNV) | payer OTHER, SELFPAY | PROVIDERS: PCP Internal Medicine; Visit Provider Internal Medicine Cardiovascular Disease | DX: I42.9 Cardiomyopathy, unspecified (principal) | CPT/HCPCS: 93306 ==

== ENCOUNTER 2023-01-01 09:25 | Outpatient (AMB) | payer OTHER, SELFPAY ==
--- NOTE | 2023-01-01 09:47 | A.OFFVIS_ITS ---
Intake Vital Signs 01/01/23 09:48 Height 5 ft 4 in Weight 154 lb 12.232 oz BMI 26.6 BP 134/80 Blood Pressure Location Lt brachial Position Sitting Pulse 88 Intake Visit Reasons: 1 year follow up Intake Note: 1 year follow up w/ EKG Grader Green Meat Required: No Accompanied by: Employee Allergies No Known Allergies Allergy (Verified 01/01/23 09:50) Medication List - Last Reconciled 01/01/23 by Toni Rolle MD atorvastatin 40 mg PO DAILY blood sugar diagnostic (FreeStyle Lite Strips) As directed ferrous sulfate 325 mg PO BID lancets (FreeStyle Lancets) As directed lisinopril 40 mg PO DAILY melatonin 5 mg PO BEDTIME metformin 500 mg PO BID pantoprazole 40 mg PO DAILY sennosides (senna) 17.2 mg PO DAILY terazosin 10 mg PO BEDTIME tolterodine ER 4 mg PO DAILY triamcinolone acetonide 0.1% 1 appl topical BID-TID HPI HPI Comments History of Present Illness Details Roshan returns for follow-up. In the past, he was seen regarding leg swelling. Workup showed evidence of cardiomyopathy. However, if not seen him since for follow-up. Sister comes with him and access the supervisor treating and pumping. Patient himself has developmental delay and hence he can not give any information at all. She states she generally doing fine. Has not seen him look or feel short of breath. Leg swelling is also improved. Has got comorbidities include diabetes, hypertension dyslipidemia. No documented coronary disease. [facility] Medical History (Updated 01/01/23 @ 11:46 by Toni Rolle MD) Diabetes mellitus, type II CKD (chronic kidney disease) Vitamin D deficiency Microalbuminuria Pain of right lower extremity Idiopathic scoliosis Mental disability Surgical History History of surgery Family History Father No problems noted. Mother Heart problem Social History Patient Tobacco Use Status: Never used Tobacco Review of Systems Const Denies weakness ENT Denies dizziness Card Denies chest pain, Denies chest pain with activity, Denies syncope, Denies rapid heart rate, Denies pedal edema, Denies edema, Denies leg edema, Denies lightheadedness, Denies palpitations, Denies dyspnea, Denies dyspnea on exertion and Denies orthopnea Resp Denies cough, Denies dyspnea and Denies dyspnea on exertion GI Denies hematochezia and Denies change in stool character Musc Denies abnormal gait, Denies muscle cramps, Denies muscle weakness, Denies numbness, Denies radiating pain into limb and Denies tingling Neuro Denies abnormal gait, Denies dizziness, Denies syncope, Denies numbness, Denies tingling and Denies weakness Endo Denies palpitations Physical Exam Vital Signs: Last Vital Signs Pulse 88 01/01/23 09:48 BP 134/80 01/01/23 09:48 BMI result Body Mass Index 26.6 Const General: comfortable and no acute distress Orientation/consciousness: patient oriented x3 HEENT Other: Unremarkable Head: Yes normal to inspection Neck Neck: Yes normal visual inspection Chest Chest palpation & inspection: normal inspection of the chest Resp Auscultation: clear to auscultation bilaterally Cardio Palpation: normal PMI Heart sounds: S1 normal heart sound present, S2 normal heart sound present, no gallops, Murmur heart sound present systolic I/ and at the right sternal bor igor and no rubs GI Palpation (GI): Soft to palpation Back/Spine/Pelvis Other: unremarkable Skin General skin exam: no rashes or lesions noted Neuro General: patient oriented x3 Extrem Other: Trace edema General: Yes normal to inspection Psych Mental Status: mental status grossly normal Office Procedures EKG Details: EKG with sinus rhythm at 88/Min; what is criteria for LVH; [place] [address]-[id number], Complete Assessment & Plan Assessment & Plan (1) NICM (nonischemic cardiomyopathy): Code(s): I42.8 - Other cardiomyopathies (2) Mental disability: Code(s): F79 - Unspecified intellectual disabilities Plan Echocardiogram in 2021-LVEF 40-45%. No significant valvular issues. Echocardiogram 2022-LVEF of 35-40%. Myocardial perfusion imaging study from 2020 with normal perfusion. Overall, nonischemic cardiomyopathy of uncertain etiology. Due to mental disability, unable to elicit detailed information. He does not have any clear-cut symptoms either. Will optimize meds as much able. Start Coreg 3.125 b.i.d.. Ideally Entresto but as a compromise okay to stay on lisinopril. Other meds like Farxiga, spironolactone could be considered. Will inform PCP. Otherwise, repeat echocardiogram in 6 months and follow-up at that time. Discussed with patient's sister. Total time spent including review of data, counseling, documentation, coordination of care-34 minutes. 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
[2023-01-01 09:48] VITALS: BP 134/80; PULSE 88; BMI 26.6
== END 2023-01-01 10:15 | disposition home or self-care (01) ==
PROVIDERS: PCP Internal Medicine; Visit Provider Internal Medicine
DX: I42.8 Other cardiomyopathies (principal); F79 Unspecified intellectual disabilities
CPT/HCPCS: 93010; 99214

== ENCOUNTER → 2023-01-01 09:25 | Outpatient (BNVA) | payer OTHER, SELFPAY | PROVIDERS: PCP Internal Medicine; Visit Provider Internal Medicine | DX: I42.9 Cardiomyopathy, unspecified (principal); F79 Unspecified intellectual disabilities | CPT/HCPCS: 93005; 99212 ==

== ENCOUNTER 2023-01-04 10:20 | Outpatient (AMB) | payer OTHER, SELFPAY ==
[2023-01-04 10:28] VITALS: BMI 26.4
--- NOTE | 2023-01-04 10:28 | MHC.OFFVIS ---
Intake Vital Signs 01/04/23 10:28 Height 5 ft 4 in Weight 154 lb BMI 26.4 Intake Visit Reasons: Left Leg Venaseal Allergies No Known Allergies Allergy (Verified 01/04/23 10:28) PENDING SALE TO [facility] Medical History (Updated 01/01/23 @ 11:46 by Toni Rolle MD) Diabetes mellitus, type II CKD (chronic kidney disease) Vitamin D deficiency Microalbuminuria Pain of right lower extremity Idiopathic scoliosis Mental disability Surgical History History of surgery Family History Father No problems noted. Mother Heart problem Social History Patient Tobacco Use Status: Never used Tobacco Physical Exam Vital Signs: BMI result Body Mass Index 26.4 Office Procedures Vascular Office Procedure Details Details: Diagnosis: Left Leg varicose veins with inflammation Procedure: Endovenous Ablation of the left Great Saphenous Vein with VenaSeal Closure System Anesthesia: Local infiltration 5 cc, Estimated Blood Loss: min Specimen: none Duplex ultrasound was used to map out the insufficient saphenous vein, and access was determined and marked on the overlying skin. The depth and diameter of the vein(s) to be treated was documented. The patient was placed supine on the procedure table and the leg was prepped and draped using sterile technique. Ultasound guidance was again used to localize the access site. 1% lidocaine was injected as a local anesthetic in the subcutaneous tissues at the target location in the GSV in the lower leg. Using ultrasound guidance, access was gained at this location with the 19 gauge thin walled access needle and followed by introduction of a short guidewire, location confirmed with ultrasound. A small, 3 mm incision was made at the access site to allow for introduction and placement of the 7 Fr x7cm introducer/dilator. The dilator and guidewire were removed. The 0.035 guidewire from the VenaSeal kit was then introduced and positioned at the saphenofemoral junction using ultrasound guidance. The 80 cm 7 Fr introducer sheath/dilator was positioned 5cm from the saphenofemoral junction. The guidewire and dilator were removed, and the remaining sheath was flushed with sterile saline, with the syringe remaining in place prior to the next steps. The cyanoacrylate adhesive was precisely primed into the 5 F delivery catheter and this catheter/syringe combination was attached within the dispenser gun. This assembly was introduced through the 7F sheath and positioned 5 cm caudal of the saphenofemoral junction under ultrasound guidance. The steps from the IFU were followed for dispensing amounts, locations and compression times, 2 aliquots proximally with 3 minutes of compression, and 1 aliquot every 3 cm distally with 30 sec of compression along the course of the vessel. Following the last injection and compression sequence, the catheter and introducer sheath were pulled out from the access site. Hemostasis was achieved with manual compression and an adhesive bandage was applied to the incision. Ultrasound confirmed complete coaptation and closure of the treated segments of the GSV, and the absence of any DVT at the saphenofemoral junction. Treatment time was approximately 6 minutes and the vein length treated was 30 cm. The drapes were removed and the patient cleaned and prepared for discharge. Post op ultrasound check is scheduled for 48-72 hours and the patient was given written post-op instructions. 69890 - Endoven Ther Chem Adhes 1st All charges added?: Procedure code (CPT) selection complete Coding Level of Care Code Procedure Only CPT Codes Details - Vascular 3: 85667 - Endoven Ther Chem Adhes 1st ([id number])
== END 2023-01-04 12:38 | disposition home or self-care (01) ==
PROVIDERS: PCP Internal Medicine; Visit Provider Surgery Vascular Surgery
DX: I83.12 Varicose veins of left lower extremity with inflammation (principal)
CPT/HCPCS: 36482

== ENCOUNTER → 2023-01-04 10:20 | Outpatient (BNVA) | payer OTHER, SELFPAY | PROVIDERS: PCP Internal Medicine; Visit Provider Surgery Vascular Surgery | DX: I83.12 Varicose veins of left lower extremity with inflammation (principal) | CPT/HCPCS: 36482 ==

== ENCOUNTER 2023-01-08 08:08 | Outpatient (REF) | payer OTHER, SELFPAY ==
--- NOTE | ~2023-01-08 | US_ITS ---
EXAMINATION: US VENOUS ULTRASOUND WITH DOPPLER LOWER EXTREMITY, LEFT CLINICAL INFORMATION: Neck pain. Status post ablation greater saphenous vein. Procedure date 01/04/2023 COMPARISON: Follow-up to ablation TECHNIQUE: Ultrasound of the deep veins is performed from the hip to the calf with compression sonography and color and pulse Doppler assessment. Spectral analysis with color-flow imaging is performed. FINDINGS: There is absent flow left greater saphenous vein status post venous seal procedure. The thrombus is visualized 2.16 cm from the superficial femoral venous junction. US/US venous duplex LE LT Impression: Thrombus visualized in the greater saphenous vein approximately 2.16 cm from superficial femoral venous junction. No flow is visualized on Doppler or color ultrasound in left greater saphenous vein.
== END 2023-01-08 08:09 | disposition home or self-care (01) ==
LOC: HO.US 08:08
PROVIDERS: PCP Internal Medicine; Visit Provider Surgery Vascular Surgery
DX: M79.605 Pain in left leg (principal)
CPT/HCPCS: 93971

== ENCOUNTER 2023-01-17 08:46 | Outpatient (AMB) | payer OTHER, SELFPAY ==
[2023-01-17 09:15] VITALS: BMI 26.4
--- NOTE | 2023-01-17 09:15 | MHC.OFFVIS ---
Intake Vital Signs 01/17/23 09:15 Height 5 ft 4 in Weight 154 lb BMI 26.4 Intake Visit Reasons: 2 week follow up left leg venaseal Intake Note: 2 week follow up Left Leg Venaseal 01/04/23. Pt states that he had some post procedural pain and tightness over treated. No pain today. No complaints about the right leg only a little swelling near the ankle Continuous Pickling Line Pickler Helper Required: Yes Continuous Pickling Line Pickler Helper Language: Vegetable Thinner Name: Brady Fubelgica HURTADO Information Interpreted: clinical only Accompanied by: sister/wild animal caretaker Allergies No Known Allergies Allergy (Verified 01/17/23 09:21) HPI 2 week follow up left leg venaseal HPI Details Very pleasant 52-year-old gentleman presents for follow-up status post left lower extremity venous ablation. Appears to be doing relatively well. Notes that he did have some mild bruising but overall swelling and discomfort has decreased. He does have a cluster varicosities in the left medial thigh as well. He does not have any significant complaints at the current time of the right lower extremity. [facility] Medical History (Updated 01/18/23 @ 09:42 by Felipe Genao MD) Diabetes mellitus, type II CKD (chronic kidney disease) Vitamin D deficiency Microalbuminuria Pain of right lower extremity Idiopathic scoliosis Mental disability Surgical History (Updated 01/17/23 @ 09:22 by DANTE Barba) Status post ablation of incompetent vein using laser (01/04/23) History of surgery Family History Father No problems noted. Mother Heart problem Social History Patient Tobacco Use Status: Never used Tobacco Review of Systems Const All systems reviewed & are unremarkable except as noted in HPI and below Reports no additional complaints ENT Reports Normal hearing present Card Denies chest pain, Denies chest pain at rest, Denies chest pain with activity and Denies pedal edema Resp Denies cough GI Denies abdominal pain Musc Denies abnormal gait, Denies muscle cramps and Denies radiating pain into limb Skin/Breast Denies skin ulcer and Denies wounds Neuro Reports Normal hearing present and Denies abnormal gait Psych Reports no additional complaints Physical Exam Vital Signs: BMI result Body Mass Index 26.4 Const General: cooperative, healthy appearing and comfortable Orientation/consciousness: oriented to person, oriented to place and oriented to time HEENT Head: Yes normal to inspection Neck Neck: Yes normal visual inspection Carotids: no bruits Chest Chest palpation & inspection: normal inspection of the chest Resp Effort & Inspection: normal respiratory effort and able to speak in complete sentences Auscultation: clear to auscultation bilaterally, no crackles, no rales, no rhonchi and no wheezes Cardio Rate: regular rate Rhythm: regular rhythm Heart sounds: S1 normal heart sound present and S2 normal heart sound present Bruits: no carotid bruits Peripheral pulses: Peripheral pulses 2+ throughout GI Inspection: Yes normal to inspection Skin Wounds: no wounds Hair: normal Neuro General: oriented to person, oriented to place and oriented to time Cranial nerves: Yes CN's II-XII intact bilaterally and Yes Normal hearing present Cognition (Neuro): normal cognition Motor exam (neuro): 5/5 motor strength present throughout Extrem Other: venous exam: +1 edema with venous cluster on left thigh General: No clubbing, No cyanosis and No edema Psych Appearance: grossly normal Mental Status: mental status grossly normal Speech and movement: Normal speech and movement present Results Reviewed Results Reviewed: Brief summary of venous insufficiency testing is as follows: right great saphenous vein: Positive right small saphenous vein: negative right accessory vein: none present left great saphenous vein: Ablated left small saphenous vein: negative left accessory vein: none present Please note there is no evidence of any venous aneurysms or significant tortuosity Assessment & Plan Assessment & Plan (1) Varicose veins of left lower extremity with inflammation: Comment: 01/04/2023 left great saphenous vein Cyanoacralate ablation Code(s): I83.12 - Varicose veins of left lower extremity with inflammation Plan: In short patient has done well with his left lower extremity ablation. He does have a cluster varicosities which is not bothering at the current time. He would like to manage this conservatively. Will follow up with us if he requires removal of cluster on left lower extremity or is considering ablation on the right lower extremity. We did discuss routine conservative measures including compression elevation and exercise. Once again the patient will follow up with us on an as-needed basis if he is interested in further treatment of his lower extremities. Thank you for allowing us to assist in his care. (2) Varicose veins of right lower extremity with inflammation: Code(s): I83.11 - Varicose veins of right lower extremity with inflammation Coding Level of Care Code Est Pt Level 4 (05244) Diagnoses Varicose veins of left lower extremity with inflammation I83.12 Varicose veins of right lower extremity with inflammation I83.11
== END 2023-01-17 09:38 | disposition home or self-care (01) ==
PROVIDERS: PCP Internal Medicine; Visit Provider Surgery Vascular Surgery
DX: I83.12 Varicose veins of left lower extremity with inflammation (principal); I83.11 Varicose veins of right lower extremity with inflammation
CPT/HCPCS: 99214

== ENCOUNTER → 2023-01-17 08:46 | Outpatient (BNVA) | payer OTHER, SELFPAY | PROVIDERS: PCP Internal Medicine; Visit Provider Surgery Vascular Surgery | DX: I83.12 Varicose veins of left lower extremity with inflammation (principal); I83.11 Varicose veins of right lower extremity with inflammation | CPT/HCPCS: 99212 ==

== ENCOUNTER 2023-02-26 17:44 | Outpatient (REF) | payer OTHER, SELFPAY ==
[2023-02-27 12:27] LABS: CT PCR NOT DETECTED (Not Detect.); NG PCR NOT DETECTED (Not Detect.)
== END 2023-02-26 17:45 | disposition home or self-care (01) ==
LOC: HO.HHCLNP 17:44
PROVIDERS: Visit Provider Emergency Medicine
DX: R30.0 Dysuria (principal)
CPT/HCPCS: 0353U; 36415; 87086; 87661

== ENCOUNTER 2023-05-22 14:22 | Outpatient (AMB) | payer OTHER, SELFPAY ==
--- NOTE | 2023-05-22 15:00 | MHC.OFFVIS ---
Intake Intake Visit Reasons: 6m/PVR Intake Note: Patient is Present for Follow Up PVR Urology Medication: Tolterodine Antibiotic Allergies: None Blood Thinners: None PVR: 0ml Patient is currently still having severe frequency of urination. States that Previous surgery did not help. Patient will go to bathroom to urinate after 5 minutes of going. Allergies No Known Allergies Allergy (Verified 05/22/23 15:15) Medication List - Last Reconciled 05/22/23 by Charles Castaneda MD atorvastatin 40 mg PO DAILY blood sugar diagnostic (FreeStyle Lite Strips) As directed carvedilol (Coreg) 3.125 mg PO BID 90 days ferrous sulfate 325 mg PO BID lancets (FreeStyle Lancets) As directed lisinopril 40 mg PO DAILY melatonin 5 mg PO BEDTIME metformin 500 mg PO BID mirabegron ER 25 mg PO DAILY 30 days pantoprazole 40 mg PO DAILY sennosides (senna) 17.2 mg PO DAILY tolterodine ER 4 mg PO DAILY 90 days triamcinolone acetonide 0.1% 1 appl topical BID-TID HPI HPI Comments History of Present Illness Details Roshan is a pleasant male. Developmental delay Montenegrin Speaker. He is a patient of Dr. Barth. He is seen for the following urologic conditions - lower urinary tract symptoms Montenegrin translation in office by qualified knot saw operator Accompanied by care worker PVR 0 Still with urgency and frequency Partially due to lack of frontal lobe coordination Remains on tolterodine 4 mg Add Myrbetriq Lower urinary tract symptoms Improved stream following laser prostatectomy. De Kristy urge frequency which may have been secondary to diabetic control Prior therapy terazosin 10mg Background of diabetes undergoing management Cystoscopy - Tight prostate 06/07 [facility] laser prostate PFS Medical History Diabetes mellitus, type II CKD (chronic kidney disease) Vitamin D deficiency Microalbuminuria Pain of right lower extremity Idiopathic scoliosis Mental disability Surgical History Status post ablation of incompetent vein using laser (01/04/23) History of surgery Family History Father No problems noted. Mother Heart problem Social History (Reviewed 05/22/23 @ 15:15 by FUNMILAYO Blake Patient Tobacco Use Status: Never used Tobacco Review of Systems Const Denies chills and Denies fever(s) Card Reports no additional complaints and Denies syncope Resp Denies cough GI Denies abdominal pain and Denies heartburn Reports as per HPI and Denies change in libido Neuro Denies syncope Psych Denies change in libido Endo Denies change in libido Physical Exam Const General: cooperative, healthy appearing, comfortable and no acute distress Orientation/consciousness: patient oriented x3 HEENT Face and sinus: Yes normal facial exam Mouth: moist mucous membranes Neck Neck: Yes normal visual inspection, Yes full ROM and Yes trachea midline Chest Chest palpation & inspection: normal inspection of the chest Resp Effort & Inspection: normal respiratory effort, able to speak in complete sentences and no respiratory distress GI Inspection: Yes normal to inspection Back/Spine/Pelvis Cervical Spine: normal cervical lordosis Thoracic/Lumbar Spine: thoracic and lumbar spine normal to inspection Skin General skin exam: no rashes or lesions noted Neuro General: patient oriented x3, gait normal, tone normal and moves all extremities Extrem General: Yes normal to inspection and Yes capillary refill normal Assessment & Plan Assessment & Plan (1) Nocturia more than twice per night: Code(s): R35.1 - Nocturia (2) Urinary urgency: Code(s): R39.15 - Urgency of urination (3) Bladder outlet obstruction: Code(s): N32.0 - Bladder-neck obstruction Plan Six month follow-up Medications: New mirabegron ER 25 mg PO DAILY 30 tabs 1RF 30 days R39.15 - Urgency of urination Patient Instructions: Imaging studies, laboratory and physical exam results were discussed and reviewed in detail. No major barriers to patient understanding were identified. An opportunity to ask questions regarding the treatment plan was provided. All questions were answered. The patient expressed understanding and agreement with the above treatment plan. The patient is aware they should contact our office by phone for worsening of their current condition or the appearance of new urologic symptoms. Compliance is encouraged with any medications and followup testing that is ordered. It is a privilege to participate in the urologic care of your patient. If you have any questions or concerns regarding treatment for the above conditions, or other urologic issues, please do not hesitate to contact me. The office telephone contact is [phone]. This note is constructed using voice recognition software. While every effort has been made to ensure accuracy panel flow machine operator errors may have been included. Yours sincerely, Dr Charles Castaneda MD, [facility] - Urology Providers of Expert, Compassionate Care for the Genitourinary System Coding Level of Care Code Est Pt Level 4 (52182) Diagnoses Nocturia more than twice per night R35.1 Urinary urgency R39.15 Bladder outlet obstruction N32.0
== END 2023-05-22 15:31 | disposition home or self-care (01) ==
PROVIDERS: PCP Internal Medicine; Visit Provider Urology
DX: R35.1 Nocturia (principal); R39.15 Urgency of urination; N32.0 Bladder-neck obstruction
CPT/HCPCS: 99214

== ENCOUNTER → 2023-05-22 14:22 | Outpatient (BNVA) | payer OTHER, SELFPAY | PROVIDERS: PCP Internal Medicine; Visit Provider Urology | DX: R35.1 Nocturia (principal); R39.15 Urgency of urination; N32.0 Bladder-neck obstruction | CPT/HCPCS: 99212 ==

== ENCOUNTER → 2023-06-18 08:56 | Outpatient (REF) | payer OTHER, SELFPAY ==
--- NOTE | 2023-06-18 09:01 | CA_ITS ---
Transthoracic Echocardiogram Patient (Last, First, Middle): Roshan Beach, Gender: Male Date of : 1970 Age: 53 Procedure Date: 06/18/2023 Procedure Type: Transthoracic Echocardiogram Location: OP Height: 154.94 cm Weight: 68.04 kg BSA: 1.67 m2 Heart Rate: bpm BP: 142 / 90 mmHg Can Worker: LUANA Referring MD: Toni Rolle MD Symptoms: I42.9 - Cardiomyopathy, unspecified Study Quality: Adequate Conclusions: - The left ventricular systolic function is moderately decreased. The visually estimated ejection fraction is between 35-40%. - No obvious valvular pathology seen on this study. Findings Left Ventricle Mildly increased left ventricular cavity size. There is normal left ventricular wall thickness. The left ventricular systolic function is moderately decreased. The visually estimated ejection fraction is between 35 40%. There is moderate global hypokinesis. Diastolic function is normal for age. Right Ventricle Mildly increased right ventricular cavity size. There is normal right ventricular systolic function. Atria Both atria are normal in size. Aortic Valve There is a normal trileaflet aortic valve. There is no aortic valve stenosis. There is no aortic valve regurgitation. Mitral Valve The mitral valve appears normal. There is no mitral valve regurgitation. There is no mitral valve stenosis. Pulmonic Valve The pulmonic valve is likely normal. Tricuspid Valve There is mild tricuspid valve regurgitation. There is no evidence of pulmonary hypertension. Great Vessels The asc aorta is normal in size. Venous The inferior vena cava is normal in size and collapses greater than 50% with inspiration. Pericardium/Pleural There is no evidence of pericardial effusion. Prior Study Comparison No significant change compared to prior study dated: 12/20/2022. Recommendations, Care & Conclusions No obvious valvular pathology seen on this study. Measurements 2D Linear Measurements IVSd: 0.74 0.6-0.9/0.6-1.0 cm LVIDd: 5.67 3.9-5.3/4.2-5.9 cm LVIDd Index: 3.40 2.4-3.2/2.2-3.1 cm/m2 LVIDs: 4.46 2.0-3.6 cm LVPWd: 0.86 0.7-1.1 cm LA Diam: 2.90 2.7-3.8/3.0-4.0 cm LAIDs Index: 1.74 1.5-2.3 cm/m2 LV Mass: 208.55 67-162/88-224 g LV Mass Index: 124.88 43-95/49-115 g/m2 LVOT Diam: 2.00 3.0+(-)1.3 cm 2D Systolic Function EF 4C: 37.00 >55% EF 2C: 46.90 >55% EF BiP: 42.30 >55% Mitral Valve MV Pk E: 0.56 MV PK A: 0.37 MV Decel Time: 202.00 E/A: 1.50 E'Lateral: 9.90 E'Medial: 7.72 E/E' Med: 7.30 E/E' Lat: 5.70 PHT: 59.00 MVA PHT: 3.73 Decel Mayes: 2.78 Aortic Valve AoV Pk Bernard: 1.46 AoV Mn Bernard: 0.92 AoV VTI: 0.26 AoV Pk Grad: 9.00 Aov Mn Grad: 4.00 LORENZO Cont.VTI: 2.22 LVOT LVOT Pk Bernard: 0.96 LVOT Mn Bernard: 0.70 LVOT VTI: 0.19 LVOT Pk Grad: 4.00 LVOT Mn Grad: 2.00 LVOT Diam: 2.00 LVOT Area: 3.14 Diastolic Function MV Pk E: 0.56 MV Pk A: 0.37 E/A: 1.50 E'Medial: 7.72 E/E' Med: 7.30 E' Laterial: 9.90 E/E' Lat: 5.70 Right Ventricle TAPSE (mm): 19.50 TVS' Bernard: 10.60 Tricuspid Valve TR Pk Bernard: 2.36 TR Pk Grad: 22.00 RA Press: 3.00 RVSP: 25.00 Great Vessels Aorta Sinus of Valsalva: 2.98 2.0-3.[address] Ridge: 1.93 1.7-3.4 cm Ao Asc: 3.50 2.1-3.4 cm Updated in Other Vendor System with Status of Final Toni Rolle MD electronically signed on 06/18/2023 10:28:30 AM with status of Final
== END ==
LOC: HO.CARD 08:56
PROVIDERS: Visit Provider Internal Medicine
DX: I42.9 Cardiomyopathy, unspecified (principal)
CPT/HCPCS: 93306; Q9957

== ENCOUNTER → 2023-06-18 09:01 | Outpatient (BNV) | payer OTHER, SELFPAY | PROVIDERS: Visit Provider Internal Medicine | DX: I36.1 Nonrheumatic tricuspid (valve) insufficiency (principal) | CPT/HCPCS: 93306 ==

== ENCOUNTER 2023-06-27 09:42 | Outpatient (REF) | payer OTHER, SELFPAY ==
--- NOTE | 2023-06-27 | EMG_ITS ---
Bilateral median and ulnar motor and sensory studies were performed. Bilateral radial sensory and median and lateral antecubital brachial sensory studies were performed. Needle examination was performed. IMPRESSION: 1. Abay-go-syoebklt right median neuropathy across carpal tunnel, the left one is unremarkable. 2. Mild bilateral ulnar neuropathy across cubital tunnel. 3. Mild left radial sensory neuropathy. MD MORTEZA Collins/WILLIAMS / [id number]
== END 2023-06-27 09:43 | disposition home or self-care (01) ==
LOC: HO.NEURO 09:42
PROVIDERS: PCP Internal Medicine; Visit Provider Internal Medicine
DX: G56.03 Carpal tunnel syndrome, bilateral upper limbs (principal)
CPT/HCPCS: 95886; 95913

== ENCOUNTER 2023-07-16 10:27 | Outpatient (AMB) | payer OTHER, SELFPAY ==
--- NOTE | 2023-07-16 10:49 | A.OFFVIS_ITS ---
Intake Vital Signs 07/16/23 10:50 Height 5 ft 4 in Weight 147 lb 11.355 oz BMI 25.4 BP 140/90 H Blood Pressure Location Lt brachial Position Sitting Pulse 88 Intake Visit Reasons: 6 month follow up after echo Intake Note: 6 month follow up Parasitology Teacher Required: No Accompanied by: Family/Other Allergies No Known Allergies Allergy (Verified 07/16/23 10:52) Medication List - Last Reconciled 07/16/23 by Toni Rolle MD atorvastatin 40 mg PO DAILY blood sugar diagnostic (FreeStyle Lite Strips) As directed carvedilol (Coreg) 3.125 mg PO BID 90 days ferrous sulfate 325 mg PO BID lancets (FreeStyle Lancets) As directed lisinopril 40 mg PO DAILY metformin 500 mg PO BID mirabegron ER 25 mg PO DAILY 30 days pantoprazole 40 mg PO DAILY sennosides (senna) 17.2 mg PO DAILY tolterodine ER 4 mg PO DAILY 90 days triamcinolone acetonide 0.1% 1 appl topical BID-TID HPI HPI Comments History of Present Illness Details Roshan returns for follow-up. Based on echocardiogram, he has got cardiomyopathy. Patient himself has developmental delay and accompanied by dennis burnham who is the main historian. According to her, she is generally doing fine. For the most part, there are no specific symptoms. On occasion, he does complain of chest pain with and without exertion. Not clear what that is. He has had some leg swelling in the past, but nothing recently. Other comorbidities include diabetes, hypertension, dyslipidemia. [facility] Medical History Diabetes mellitus, type II CKD (chronic kidney disease) Vitamin D deficiency Microalbuminuria Pain of right lower extremity Idiopathic scoliosis Mental disability Surgical History Status post ablation of incompetent vein using laser (01/04/23) History of surgery Family History Father No problems noted. Mother Heart problem Social History Patient Tobacco Use Status: Never used Tobacco Review of Systems Const Denies weakness ENT Denies dizziness Card Denies chest pain, Denies chest pain with activity, Denies syncope, Denies rapid heart rate, Denies pedal edema, Denies edema, Denies leg edema, Denies lightheadedness, Denies palpitations, Denies dyspnea, Denies dyspnea on exertion and Denies orthopnea Resp Denies cough, Denies dyspnea and Denies dyspnea on exertion GI Denies hematochezia and Denies change in stool character Musc Denies abnormal gait, Denies muscle cramps, Denies muscle weakness, Denies numbness, Denies radiating pain into limb and Denies tingling Neuro Denies abnormal gait, Denies dizziness, Denies syncope, Denies numbness, Denies tingling and Denies weakness Endo Denies palpitations Physical Exam Vital Signs: Last Vital Signs Pulse 88 07/16/23 10:50 BP 140/90 H 07/16/23 10:50 BMI result Body Mass Index 25.4 Const General: comfortable and no acute distress Orientation/consciousness: patient oriented x3 HEENT Other: Unremarkable Head: Yes normal to inspection Neck Neck: Yes normal visual inspection Chest Chest palpation & inspection: normal inspection of the chest Resp Auscultation: clear to auscultation bilaterally Cardio Palpation: normal PMI Heart sounds: S1 normal heart sound present, S2 normal heart sound present, no gallops, no murmurs and no rubs GI Palpation (GI): Soft to palpation Back/Spine/Pelvis Other: unremarkable Skin General skin exam: no rashes or lesions noted Neuro General: patient oriented x3 Extrem General: Yes normal to inspection Psych Mental Status: mental status grossly normal Assessment & Plan Assessment & Plan (1) NICM (nonischemic cardiomyopathy): Code(s): I42.8 - Other cardiomyopathies (2) Mental disability: Code(s): F79 - Unspecified intellectual disabilities Plan In the most recent echocardiogram, LVEF is 35-40%. Last year, similar. In 202, 40-45%. Myocardial perfusion imaging study from 2020 with normal perfusion. Overall, nonischemic cardiomyopathy of uncertain etiology. Due to his mental disability, information is somewhat limited. He remains on Coreg/lisinopril. Ideally Entresto but to avoid confusion, probably keep it similar. As the blood pressure is on the higher side, we can go up on the Coreg dosing anyway. Can consider other meds like spironolactone/Farxiga but do not want to make too complicated for him either. Due to concerns for chest pain, we will repeat a stress test. Plan was discussed with patient's sister. She understands. Orders: Orders CA lexiscan stress w jessy Today I20.9 - Angina pectoris, unspecified NM cardiolite stress test Today R07.2 - Precordial pain Medications: New carvedilol (Coreg) must administer with a meal/food 6.25 mg PO BID 180 tabs 3RF 90 days Discontinued carvedilol (Coreg) must administer with a meal/food Discontinued Reason: Doctor's Order 3.125 mg PO BID 90 days 180 tabs 3RF Coding Level of Care Code Est Pt Level 4 (70301) Diagnoses NICM (nonischemic cardiomyopathy) I42.8 Mental disability F79
[2023-07-16 10:50] VITALS: BP 140/90; PULSE 88; BMI 25.4
== END 2023-07-16 11:06 | disposition home or self-care (01) ==
PROVIDERS: PCP Internal Medicine; Visit Provider Internal Medicine
DX: I42.8 Other cardiomyopathies (principal); F79 Unspecified intellectual disabilities
CPT/HCPCS: 99214

== ENCOUNTER → 2023-07-16 10:27 | Outpatient (BNVA) | payer OTHER, SELFPAY | PROVIDERS: PCP Internal Medicine; Visit Provider Internal Medicine | DX: I42.8 Other cardiomyopathies (principal); F79 Unspecified intellectual disabilities | CPT/HCPCS: 99212 ==

== ENCOUNTER → 2023-08-23 09:05 | Outpatient (REF) | payer OTHER, SELFPAY ==
--- NOTE | ~2023-08-23 | NM_ITS ---
Lexiscan Myocardial perfusion study Indication: Chest pain, assess for coronary disease and ischemia Technique: The patient was brought in for a Lexiscan perfusion study on 08/23/2023 and was injected 0.4 mg of Lexiscan intravenously. Within a minute of this injection 25 mCi of sestamibi was given intravenously. Images were obtained using the SPECT gamma camera interlaced with the gating device. Images were obtained in supine position. Resting perfusion study was performed on 08/26/2023. Patient was administered 25 mCi of sestamibi intravenously at rest. Images were then obtained in supine position. Images were processed with the software and compared side to side in short axis, horizontal long axis and vertical long axis views. Total DLP 142mGy-cm. Findings: Raw acquisition reviewed. Arms by the patient's side. The stress perfusion study showed no significant perfusion abnormality. With CT attenuation correction, there is reduced tracer uptake which is most likely all technical. The gated study shows reduced LV systolic function with calculated LVEF of 40%. LV cavity is normal in size. The gated study shows globally reduced wall thickening and contraction of segments. Resting study shows no significant perfusion abnormality. Gating at rest reveals globally reduced wall motion with ejection fraction at 44%. The findings are consistent with no clear reversible or fixed perfusion defects. NM/NM cardiolite stress test Impression: 1. Myocardial perfusion imaging study shows probably normal myocardial perfusion. 2. Gated LVEF is 40% during stress and 44% during rest. 3. Transient ischemic dilatation not present. EKG component of the test reported separately.
--- NOTE | 2023-08-23 09:07 | CA_ITS ---
Acquisition Time: 2023-08-23 09:50:00 Total Exercise Time: 00:02:00 Test Indications: CP Medications: SEE H Protocol: LEXISCAN Max HR: 125 BPM 74% of Pred: 167 BPM Max BP: 132/078 mmHG Max Work Load: 1.0 METS Pharmacological stress test with Lexiscan injection while sititng and kicking his legs, without anginal symptoms, with isolated PVCs, with normotensive response to injection, with nondiagnositic EKGs. Aminophylline 75mg IVP given to reverse Lexiscan. Nuclear images pending. Test reviewed with Dr. Sims. Referred By: Toni Rolle Overread By: Angeli Lewis
== END ==
LOC: HO.CARD 09:05
PROVIDERS: PCP Internal Medicine; Visit Provider Internal Medicine
DX: R07.2 Precordial pain (principal); I20.9 Angina pectoris, unspecified
CPT/HCPCS: 78452; 93017; A9500; J0280; J2785

== ENCOUNTER → 2023-08-23 09:07 | Outpatient (BNV) | payer OTHER, SELFPAY | PROVIDERS: PCP Internal Medicine; Visit Provider Nurse Practitioner | DX: R07.9 Chest pain, unspecified (principal) | CPT/HCPCS: 78452; 93016; 93018 ==

== ENCOUNTER 2023-10-22 09:42 | Outpatient (AMB) | payer OTHER, SELFPAY ==
[2023-10-22 10:41] VITALS: BP 110/80; PULSE 81; BMI 25.2
--- NOTE | 2023-10-22 10:41 | MHC.OFFVIS ---
Vital Signs 10/22/23 10:41 Height 5 ft 4 in Weight 146 lb 13.246 oz BMI 25.2 BP 110/80 Blood Pressure Location Lt brachial Position Sitting Pulse 81 Intake Visit Reasons: 3 mth f/up nuc Film Processing Shift Supervisor Required: Yes Film Processing Shift Supervisor Services: Film Processing Shift Supervisor Present Film Processing Shift Supervisor Name: Charisma Zarco Loss Prevention Analyst: Loss Prevention Analyst Present Accompanied by: Sister Allergies No Known Allergies Allergy (Verified 07/16/23 10:52) Medication List - Last Reconciled 10/22/23 by Toni Rolle MD atorvastatin 40 mg PO DAILY blood sugar diagnostic (FreeStyle Lite Strips) As directed carvedilol (Coreg) 6.25 mg PO BID 90 days ferrous sulfate 325 mg PO BID lancets (FreeStyle Lancets) As directed lisinopril 40 mg PO DAILY metformin 500 mg PO BID mirabegron ER 25 mg PO DAILY 30 days pantoprazole 40 mg PO DAILY sennosides (senna) 17.2 mg PO DAILY tolterodine ER 4 mg PO DAILY 90 days triamcinolone acetonide 0.1% 1 appl topical BID-TID HPI Comments Details: Roshan returns for follow-up. He carries a diagnosis of nonischemic cardiomyopathy. Patient himself has developmental delay and hence unable to give any history. It seems that for the most part he is doing fine. No clear-cut cardiac complaints. Sister states that he does not really say much. Otherwise, has diabetes, hypertension and dyslipidemia. [facility] Medical History Diabetes mellitus, type II CKD (chronic kidney disease) Vitamin D deficiency Microalbuminuria Pain of right lower extremity Idiopathic scoliosis Mental disability Surgical History Status post ablation of incompetent vein using laser (01/04/23) History of surgery Family History Father No problems noted. Mother Heart problem Social History Patient Tobacco Use Status: Never used Tobacco Review of Systems Const Denies chills, Denies fatigue, Denies fever(s), Denies weight gain and Denies weight loss Card Denies chest pain, Denies leg edema, Denies lightheadedness, Denies palpitations, Denies dyspnea on exertion and Denies orthopnea Resp Denies cough and Denies dyspnea on exertion GI Reports melena, Denies hematochezia and Denies change in stool character Musc Denies muscle weakness and Denies radiating pain into limb Endo Denies fatigue and Denies palpitations Physical Exam Vital Signs: Last Vital Signs Pulse 81 10/22/23 10:41 BP 110/80 10/22/23 10:41 BMI result Body Mass Index 25.2 Const General: comfortable and no acute distress Orientation/consciousness: patient oriented x3 HEENT Other: Unremarkable Head: Yes normal to inspection Neck Neck: Yes normal visual inspection Chest Chest palpation & inspection: normal inspection of the chest Resp Auscultation: clear to auscultation bilaterally Cardio Palpation: normal PMI Heart sounds: S1 normal heart sound present, S2 normal heart sound present, no gallops, no murmurs and no rubs GI Palpation (GI): Soft to palpation Back/Spine/Pelvis Other: unremarkable Skin General skin exam: no rashes or lesions noted Neuro General: patient oriented x3 Extrem General: Yes normal to inspection Psych Mental Status: mental status grossly normal Assessment & Plan Assessment & Plan (1) NICM (nonischemic cardiomyopathy): Code(s): I42.8 - Other cardiomyopathies Category: Medical (2) Mental disability: Code(s): F79 - Unspecified intellectual disabilities Category: Medical Plan In the most recent echocardiogram, LVEF is 35-40%. Last year, similar. In 2021, 40-45%. Myocardial perfusion imaging study with normal perfusion. Overall, nonischemic cardiomyopathy of uncertain etiology. Due to his mental disability, information is somewhat limited. He remains on Coreg/lisinopril. His care is also scattered as it seems he gets labs in different places and we do not have any recent BMP in our system. Need to contact PCP. For simplification, keeping off spironolactone, Farxiga extra as it is getting very confusing especially with patient's mental history. Follow-up in 1 year. Discussed with sister. Total time spent including review of data, counseling, documentation, coordination of care-31 minutes. Orders: Orders CA echo transthoracic complete 1 Year I42.8 - Other cardiomyopathies Coding Level of Care Code Est Pt Level 4 (88900) Diagnoses NICM (nonischemic cardiomyopathy) I42.8 Mental disability F79
== END 2023-10-22 11:19 | disposition home or self-care (01) ==
PROVIDERS: PCP Internal Medicine; Visit Provider Internal Medicine
DX: I42.8 Other cardiomyopathies (principal); F79 Unspecified intellectual disabilities
CPT/HCPCS: 93010; 99214

== ENCOUNTER → 2023-10-22 09:42 | Outpatient (BNVA) | payer OTHER, SELFPAY | PROVIDERS: PCP Internal Medicine; Visit Provider Internal Medicine | DX: I42.8 Other cardiomyopathies (principal); F79 Unspecified intellectual disabilities; Z79.899 Other long term (current) drug therapy | CPT/HCPCS: 93005; 99212 ==

== ENCOUNTER 2024-01-08 11:58 | Outpatient (REF) | payer OTHER, SELFPAY ==
[2024-01-08 14:19] LABS: Anion Gap 14 (12-20); Blood Urea Nitrogen 20 mg/dL (9-16); Calcium 10.3 mg/dL (8.4-10.2); Carbon Dioxide 29 mmol/L (22-29); Chloride 105 mmol/L (96-108); Cholesterol 139 mg/dL (<200); Estimated Glomerular Filt Rate > 60; Glucose Random 96 mg/dL (60-115); HDL Cholesterol 54 mg/dL (>40); LDL Cholesterol Calculated 67 mg/dL (<100); Potassium 4.4 mmol/L (3.3-5.1); Sodium 144 mmol/L (135-145); Triglycerides 90 mg/dL (<150)
[2024-01-08 14:41] LABS: Creatinine Urine 58.35 mg/dL; Microalbum/Creatinine Ratio Ur 102.8 ug/mg cr (<30)
[2024-01-08 15:02] LABS: Reflex LDLD? No
== END 2024-01-08 11:59 | disposition home or self-care (01) ==
LOC: HO.HHCL 11:58
PROVIDERS: Visit Provider Internal Medicine
DX: E11.65 Type 2 diabetes mellitus with hyperglycemia (principal)
CPT/HCPCS: 36415; 80048; 80061; 82043; 82570

== ENCOUNTER 2024-01-09 08:57 | Outpatient (AMB) | payer OTHER, SELFPAY ==
--- NOTE | 2024-01-09 08:58 | MHC.OFFVIS ---
Intake Visit Reasons: 6M Follow Up-Med Review(Myrbetriq) Intake Note: Patient is Present for Telephone Follow Up Medication Review-Myrbetriq Urology Med:Tolterodine, Myrbetriq Antibiotic Allergy: None Blood Thinner: None Nuclear Medicine Specialist Required: Yes Nuclear Medicine Specialist Language: Minister Services: Nuclear Medicine Specialist Present Information Interpreted: clinical only Accompanied by: Self / Same As Patient Allergies No Known Allergies Allergy (Verified 01/09/24 08:58) HPI Comments Details: Roshan is a pleasant male. Developmental delay Bahamian Speaker. He is a patient of Dr. Barth. He is seen for the following urologic conditions - lower urinary tract symptoms Bahamian translation in office by qualified per diem interpreter Accompanied by care worker Telemedicine Evaluation 15 min Consultation USB Promos Lizet Video attempted Follow-up from addition of Myrbetriq to tolterodine for urgency and frequency in setting of lack of frontal lobe coordination States had some improvement in control Still will go when feels initial urge Recommend timed voiding every 2-3 hours Six-month follow-up Lower urinary tract symptoms Improved stream following laser prostatectomy. De Kristy urge frequency which may have been secondary to diabetic control Prior therapy terazosin 10mg Background of diabetes undergoing management Cystoscopy - Tight prostate 06/07 GreenLight laser prostate PFSH Medical History Diabetes mellitus, type II CKD (chronic kidney disease) Vitamin D deficiency Microalbuminuria Pain of right lower extremity Idiopathic scoliosis Mental disability Surgical History Status post ablation of incompetent vein using laser (01/04/23) History of surgery Family History Father No problems noted. Mother Heart problem Social History Patient Tobacco Use Status: Never used Tobacco Review of Systems Const All systems reviewed & are unremarkable except as noted in HPI and below Reports no additional complaints Resp Reports no additional complaints GI Reports no additional complaints Reports as per HPI Musc Reports no additional complaints Physical Exam Telemedicine evaluation Appropriate responses Regular breathing rate and rhythm HEENT Head: Yes normal to inspection Ears: hearing grossly normal bilaterally Eyes General: appearance normal, both eyes and all related structures Neck Neck: Yes normal visual inspection Chest Chest palpation & inspection: normal inspection of the chest Resp Effort & Inspection: normal respiratory effort and able to speak in complete sentences Telehealth Telehealth Telehealth Platform: USB Promos Location of provider rendering services: practice address Location of patient: address on file Patient Identification confirmed using: Name, : Yes Telehealth method: video Patient verbally consented to treatment: Yes Patient verbally consented to billing insurance company: Yes Patient informed of any privacy concerns related to visit: Yes Minutes spent on Phone/Video with Pt.: 15 Assessment & Plan Assessment & Plan (1) Nocturia more than twice per night: Code(s): R35.1 - Nocturia Category: Medical (2) Urinary urgency: Code(s): R39.15 - Urgency of urination Category: Medical Plan Six-month follow-up Medications: Changed From mirabegron ER 25 mg PO DAILY 30 days 30 tabs 1RF R39.15 - Urgency of urination To mirabegron ER 25 mg PO DAILY 90 days 90 tabs 1RF R39.15 - Urgency of urination Refilled tolterodine ER 4 mg PO DAILY 90 days 90 caps 1RF 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 No major barriers to patient understanding were identified. An opportunity to ask questions regarding the treatment plan was provided. All questions were answered. The patient expressed understanding and agreement with the above treatment plan. The patient is aware they should contact our office by phone for worsening of their current condition or the appearance of new urologic symptoms. Compliance is encouraged with any medications and followup testing that is ordered. It is a privilege to participate in the urologic care of your patient. If you have any questions or concerns regarding treatment for the above conditions, or other urologic issues, please do not hesitate to contact me. The office telephone contact is [phone]. This note is constructed using voice recognition software. While every effort has been made to ensure accuracy paper twister errors may have been included. Yours sincerely, Dr Charles Castaneda MD, [facility] - Urology Providers of Expert, Compassionate Care for the Genitourinary System Coding Level of Care Code Tele Est Pt Level 3 (68041) Diagnoses Nocturia more than twice per night R35.1 Urinary urgency R39.15
== END 2024-01-09 09:56 | disposition home or self-care (01) ==
LOC: HO.HUSH 08:57
PROVIDERS: PCP Internal Medicine; Visit Provider Urology
DX: R35.1 Nocturia (principal); R39.15 Urgency of urination
CPT/HCPCS: 99213

== ENCOUNTER → 2024-01-09 08:57 | Outpatient (BNVA) | payer OTHER, SELFPAY | PROVIDERS: PCP Internal Medicine; Visit Provider Urology ==

== ENCOUNTER 2024-04-07 13:25 | Outpatient (REF) | payer OTHER, SELFPAY | END 2024-04-07 13:26 | disposition home or self-care (01) | LOC: HO.HHCLNP 13:25 | PROVIDERS: Visit Provider Internal Medicine | DX: R30.0 Dysuria (principal) | CPT/HCPCS: 87086 ==

== ENCOUNTER 2024-07-09 10:04 | Outpatient (AMB) | payer OTHER, SELFPAY ==
--- NOTE | 2024-07-09 10:27 | MHC.OFFVIS ---
Intake Visit Reasons: 6m Med Review(Myrbetriq) Intake Note: Patient is present for 6M MED REVIEW (MYRBETRIQ) Urology Medication:TOLTERODINE,MIRABEGRON Antibiotic Allergy:NONE Blood Thinner:NONE Customs Director Required: No Allergies No Known Allergies Allergy (Verified 07/09/24 10:28) HPI Comments Details: Roshan is a pleasant male. Developmental delay Honduran Speaker. He is a patient of Dr. Barth. He is seen for the following urologic conditions - lower urinary tract symptoms Honduran translation in office by qualified director educational radio Accompanied by care worker Six-month follow-up Prior recommendation for timed voiding every 2-3 hours UA today glucose 1+ suggestive of poor diabetic control or recent calorie intake On combination of Myrbetriq to tolterodine for urgency and frequency in setting of lack of frontal lobe coordination Lower urinary tract symptoms Improved stream following laser prostatectomy. De Kristy urge frequency which may have been secondary to diabetic control Prior therapy terazosin 10mg Background of diabetes undergoing management Cystoscopy - Tight prostate 06/07 GreenLight laser prostate PFSH Medical History Diabetes mellitus, type II CKD (chronic kidney disease) Vitamin D deficiency Microalbuminuria Pain of right lower extremity Idiopathic scoliosis Mental disability Surgical History Status post ablation of incompetent vein using laser (01/04/23) History of surgery Family History Father No problems noted. Mother Heart problem Social History Patient Tobacco Use Status: Never used Tobacco Results AMB Urinalysis, Automated UA Leukoctes 0 Milady/uL Last Edit by PHILLY Kelly on 07/09/24 10:55 UA Nitrite Negative Last Edit by PHILLY Kelly on 07/09/24 10:55 UA Urobilinogen 3.5 mg/dL Last Edit by PHILLY Kelly on 07/09/24 10:55 UA Protein 0.3 mg/dL Last Edit by PHILLY Kelly on 07/09/24 10:55 UA pH 6.0 Last Edit by PHILLY Kelly on 07/09/24 10:55 UA Blood 0 Carl/uL Last Edit by PHILLY Kelly on 07/09/24 10:55 UA Specific [place] 1.020 Last Edit by PHILLY Kelly on 07/09/24 10:55 UA Ketone Negative Last Edit by PHILLY Kelly on 07/09/24 10:55 UA Bilirubin 0 mg/dL Last Edit by PHILLY Kelly on 07/09/24 10:55 UA Glucose 15 mg/dL Last Edit by PHILLY Kelly on 07/09/24 10:55 Results Reviewed Results Reviewed: Laboratory Last Values Urine pH (Auto) 6.0 07/09/24 10:54 Specific [place] (Auto) 1.020 07/09/24 10:54 Urine Protein (Auto) 0.3 mg/dL 07/09/24 10:54 Glucose (UA)(Auto) 15 mg/dL 07/09/24 10:54 Urine Ketones (Auto) Negative 07/09/24 10:54 Urine Blood (Auto) 0 Carl/uL 07/09/24 10:54 Urine Nitrite (Auto) Negative 07/09/24 10:54 Urine Bilirubin (Auto) 0 mg/dL 07/09/24 10:54 Urine Urobilinogen (Auto) 3.5 mg/dL 07/09/24 10:54 Leukocyte Esterase (Auto) 0 Milady/uL 07/09/24 10:54 Assessment & Plan Assessment & Plan Orders: Orders AMB Urinalysis Automated Today Z13.9 - Encounter for screening, unspecified Coding
--- OUTSIDE RECORDS SUMMARY | 2024-07-09 12:46 | XMS_ITS | Encounter Summary ---
Author Organization [employer] Address [address] [facility] 7t [place] [address] Care Team Providers Care Room Service Runner Name Role Phone Vanessa Foy MD Primary Care Provide r Reason for Visit * Reason Comments Med Refill Encounter Details Date Type Department Care Team ([facility] st Contact Info) Description 04/27/2024 Refill [facility] CHC MED & PEDS [address] [place], [place] [phone] Vanessa Foy MD 230 [place] [address] Gastroesophageal reflux disease without esophagitis Social History Tobacco Use Types Packs/Day Years Used Date Smoking Tobacco: Never Passive Smoke Exposure: Never Smokeless Tobacco: Never Alcohol Use Standard Drinks/Week Comments Never 0 (1 standard drink = 0.6 oz pur e alcohol) Alcohol Answer Date Recorded Frequency of Alcohol Consumption Not on file 01/08/2024 Average Number of Drinks Not on file 024 Frequency of Binge Drinking Not on file 12/15 Score 0 01/08/2024 Depression Answer Date Recorded Patient Health Questionnaire-9 Score 1 10/08/2023 Patient Health Questionnaire-9 Score 1 10/08/2023 Last PHQ-9: Questionnaire Data Not on file 0 10/08/2023 Housing Stability Answer Date Recorded What is your housing situation today? I have jaspreet daily 01/29/[address] you li ve. Do you have problems with any of the following? None of the above 01/29/2023 Food Insecurity Answer Date Recorded Within the past 12 months, y ou worried that your food would run out before you got money to buy more: Never True 01/29/2023 Within the past 12 months,th e food you bought just didn't last and you didn't have enough money to get more: Never True Transportation Answer Date Recorded In the past 12 months, has l ack of transportation kept you from medical appts, meetings, work or from getting things needed for daily living? No 01/29/2023 Utilities Answer Date Recorded In the past 12 months, has t he electric, gas, oil or water company threatened to shut off services in your home? No 01/29/2023 Depression Answer Date Recorded Patient Health Questionnaire-2 Score 0 10/08/2023 Sex and Gender Information Value Date Recorded Sex Assigned at Male 02/12/2022 10:15 AM EDT Legal Sex Male 10:15 AM EDT Gender Identity Male 02/12/2022 10:15 AM EDT Sexual Orientation Choose not to disclose 2021 10:15 AM EDT documented as of this encounter Plan of Treatment Not on file documented as of this encounter Visit Diagnoses Diagnosis Gastroesophageal reflux disease without esophagitis Esophageal reflux documented in this encounter Additional Health Concerns Assessment Noted Time PHQ-9 Depression Total Score: 1 10/08/19 24 10:58 AM EDT documented as of this encounter Care Teams Room Service Runner Relationship Specialty Start Date End Date Vanessa Foy MD [address] [place] [id number] PCP - General Family Medicine 02/26/19 documented as of this encounter
--- OUTSIDE RECORDS SUMMARY | 2024-07-09 12:46 | XMS_ITS | Encounter Summary ---
Author Organization [employer] Address [address] [facility] 7t [place] [address] Care Team Providers Care Dipper Operator Name Role Phone Vanessa Foy MD Primary Care Provide r Encounter Details Date Type Department Care Team (Late st Contact Info) Description 05/25/2024 Telephone [facility] MEDICINE [address] [place], [place] [phone] Vanessa Foy MD [address] [place], [place] [phone] Social History Tobacco Use Types Packs/Day Years [...] documented as of this encounter Visit Diagnoses Not on filedocumented in this encounter Additional Health Concerns Assessment Noted Time PHQ-9 Depression Total Score: 1 10/08/19 24 10:58 AM EDT documented as of this encounter Care Teams Dipper Operator Relationship Specialty Start Date End Date Vanessa Foy MD 230 [place] [address] PCP - General Family Medicine 02/26/19 documented as of this encounter
--- OUTSIDE RECORDS SUMMARY | 2024-07-09 12:46 | XMS_ITS | Encounter Summary ---
Author Organization [employer] Address [address] [facility] [address] [place] [address] Care Team Providers Care Litigation Legal Secretary Name Role Phone Vanessa Foy MD Primary Care Provide r Reason for Visit * Reason Comments Med Refill Encounter Details Date Type Department Care Team ([facility] st Contact Info) Description 06/24/2024 Refill [facility] CHC MED & PEDS [address] [place], [place] [phone] Vanessa Foy MD 230 [place] [address] Gastroesophageal reflux disease without esophagitis Social History [...] documented as of this encounter Care Teams Litigation Legal Secretary Relationship Specialty Start Date End Date Vanessa Foy MD [address] [place] [id number] PCP - General Family Medicine 02/26/19 documented as of this encounter
--- OUTSIDE RECORDS SUMMARY | 2024-07-09 12:46 | XMS_ITS | Encounter Summary ---
Author Organization [employer] Address [address] [place] [address] Care Team Providers Care Clinical Technician Name Role Phone Vanessa Foy MD Primary Care Provide r Reason for Visit * Reason Comments Consult Diabetic foot care * Orthopedic (Routine) - Closed Specialty Diagnoses / Procedures Referred By Contact Referred To Contact Podiatry / Orthopaedic Surgery Diagnoses Diabetic foot (CMS/HCC) Procedures AMB REFERRAL TO POD Vanessa Foy MD [address] [phone] Phone: tel: fax: Rivas Davis DPM [address] [address] Phone: tel: fax: Referral ID Status Reason Start Date Expiration Date V isits Requested Visits Authorized [id number] Closed Consult and Treat 02/15/2024 02/14/2025 1 Encounter Details Date Type Department Care Team (Late st Contact Info) Description 06/24/2024 10:45 AM EDT Consult Orthopedic Surgery [facility] [address] [phone] Rivas Davis DPM [address] [address] Dermatophytosis of nail (Primary Dx); Pain in toe of right foot; Pain in toe of left foot; Diabetic mononeuropathy simplex (CMS/HCC); Hammer toe of left foot; Acquired hammer toe of right foot Social History Tobacco Use Types Packs/Day Years Used Date Smoking Tobacco: Never Smokeless Tobacco: Never Alcohol Use Standard Drinks/Week Comments No 0 (1 standard drink = 0.6 oz pur e alcohol) Sex and Gender Information Value Date Recorded Sex Assigned at Not on file Legal Sex Male 5:05 AM EST Gender Identity Not on file Sexual Orientation Not on file documented as of this encounter Last Filed Vital Signs Vital Sign Reading Time Taken Comments Blood Pressure - - Pulse - - Temperature - - Respiratory Rate - - Oxygen Saturation - - Inhaled Oxygen Concentration - - Weight 67.1 kg (148 lb) 06/24/2024 10:35 AM EDT Height 160 cm (5' 2.99 ) 06/24/2024 10:35 AM EDT Body Mass Index 26.22 06/24/2024 10:35 AM EDT documented in this encounter Progress Notes * Rivas Davis DPM - 06/24/2024 10:45 AM EDT Last PCP visit:Referring MD: Vanessa Foy * 04/07/24 IDENTIFIER: Baylee is a 54 y.o. year old male who presents for consultation. CC: Foot pain HPI: Presents today for evaluation of his feet with his significant other present reports chronic achy pain numbness burning and tingling reports his nails elongated painful thickened and bother him he isunable to cut himself he does notice curls his toes sometimes curl up and bother him as well make it difficult for him to walk reports pain discomfort to be a 1 or 2 out of 10 on a visual analog scale ROS: GENERAL: Pt denies nausea, fever, vomiting, chills, or shortness of breath. Pt in NAD. CARDIOLOGY: pt denies chest pain, palpitations LUNGS: pt denies shortness of breath MUSCULOSKELETAL: See HPI, otherwise no joint pain or swelling, back pain, or muscle pain. SKIN: see HPI, otherwise no lesions, rash or itching NEURO: No persistent headache, weakness or numbness The remainder of the review of systems is noncontributory PAST MEDICAL HISTORY: Patient Active Problem List Diagnosis Chronic kidney disease Hypertension Lower leg pain Intellectual disability Right inguinal hernia Idiopathic scoliosis and kyphoscoliosis Umbilical hernia Vitamin D deficiency Carpal tunnel syndrome on left SOCIAL HISTORY: Social History Tobacco Use Smoking status: Never Smokeless tobacco: Never Substance Use Topics Alcohol use: No ACTIVE MEDICATIONS: Outpatient Medications Marked as Taking for the 06/24/24 encounter (Consult) with Rivas Davis DPM Medication Sig Dispense Refill acetaminophen (TYLENOL) 500 mg tablet Take 1 tablet (500 mg total) by mouth every 6 (six) hours if needed. amLODIPine-atorvastatin (CADUET) 2.5-20 mg per tablet Take 1 tablet by mouth 1 (one) time each day. atorvastatin (LIPITOR) 40 mg tablet Take 1 tablet (40 mg total) by mouth 1 (one) time each day. carbamide peroxide (Ear Drops, carbamide peroxide,) 6.5 % otic solution 5 drops 2 (two) times a day. Tilt head so ear to be treated points towards the ceiling. Hold medication in ear using part of a cotton ball. CHOLECALCIFEROL, VITAMIN D3, ORAL Take by mouth. clotrimazole (LOTRIMIN) 1 % cream Apply topically 2 (two) times a day. FREESTYLE LANCETS MISC by Not Applicable route. glucose blood test strip glucose blood test strips (ASCENSIA AUTODISC ,ONE TOUCH ULTRA TEST ) strip 1 Strip by In Vitro route as needed. insulin glargine,hum.rec.anlog (LANTUS U-100 INSULIN SUBQ) Inject under the skin. lisinopril (PRINIVIL,ZESTRIL) 40 mg tablet Take 1 tablet (40 mg total) by mouth 1 (one) time each day. melatonin 2.5 mg tablet,chewable Chew. metFORMIN (GLUCOPHAGE) 500 mg/5 mL solution oral solution Take by mouth. pantoprazole (PROTONIX) 40 mg EC tablet Take 1 tablet (40 mg total) by mouth 1 (one) time each day. senna (SENOKOT) 8.6 mg tablet Take 1 tablet (8.6 mg total) by mouth 1 (one) time each day. ALLERGIES: No Known Allergies PHYSICAL EXAM: Visit Vitals Ht 1.6 m (62.99 ) Wt 67.1 kg (148 lb) BMI 26.22 kg/m?? Smoking Status Never BSA 1.7 m?? PODIATRIC EXAMINATION: GENERAL: Patient appears well nourished, with NAD. VASCULAR: Dorsalis pedis pulses are 1/4 bilaterally and Posterior tibial pulses are 1/4 bilaterally. Capillary filling time within normal limits the digits. No pallor on elevation or rubor on dependency. No varicosities. Denies rest pain or claudication pain. NEUROLOGICAL: Sharp/dull sensation diminished , protective sensation intact 10/10 with 5.07 semmes kristine bilaterally, vibratory sensation with tuning fork intact to the tibial tuberosity. ORTHOPEDIC: Good muscle strength 5/5 of all flexors and extensors. Dorsi flexion of ankle ,10 degrees, plantar flexion WNL. No muscle atrophy. DERMATOLOGICAL:. Toenails: Left Toenail(s) 1-5: Crumbling upon debridement, subungual debris, discoloration, dystrophy, elongation, mycotic appearance, onychomycosis, pain and thickening. Right Toenail(s) 1-5: Crumbling upon debridement, subungual debris, discoloration, dystrophy, elongation, mycotic appearance, onychomycosis, pain and thickening. Annular scaling bilateral feet moccasin distribution Skin thinning texture shiny appearance diffuse hyperpigmentation bilaterally pedal hair decreased BIOMECHANICS: Ankle ROM WNL, STJ ROM wnl, MTJ ROM wnl, 1st MPJ ROM wnl. IMAGING: IMPRESSION: 1. Dermatophytosis of nail 2. Pain in toe of right foot 3. Pain in toe of left foot 4. Diabetic mononeuropathy simplex (CMS/HCC) PLAN: Pt was seen and examined, history reviewed. Antifungal medications were discussed and reviewed Pedal deformities and hammertoe contracture deformities would recommend tubular gauze silicone toe sleeves wider shoe gear Discussed with patient regarding proper glucose control, exercise, and diet. Explained to patient proper shoe gear, and importance of daily foot checks. I reviewed neuropathy and why it occurs in diabetics. I educated the patient on proper blood sugar control and the importance of an HgBA1c of less than 7.0%. I reviewed the signs and symptoms of neuropathy with the patient Pt to return for another evaluation in 3 months. Debridement of mycotic toenails 6-10: Verbal informed consent was obtained from the patient. Greater than 6 nails were aseptically debrided in thickness and length with nail nippers Rivas Davis DPM documented in this encounter Plan of Treatment Upcoming Encounters Date Type Department Care Team (Late st Contact Info) Description 07/16/2024 1:30 PM EDT Hospital Encounter [facility] Main OR [address] [place] [phone] Livier Fulton MD [address] [phone] 07/16/2024 1:30 PM EDT - 07/16/2024 3:30 PM EDT Surgery [facility] Main OR [address] [place] [phone] Livier Fulton MD [address] [phone] OPEN RELEASE LEFT CARPAL TUNNEL, left cubital tunnel release [89585 (CPT??)] 07/27/2024 11:00 AM EDT Office Visit Orthopedic Surgery [facility] [address] [phone] Brianna Blandon PA [address] [phone] 09/24/2024 10:30 AM EDT Office Visit Orthopedic [facility] [address] [phone] Rivas Davis DPM [address] [address] Scheduled Procedures Name Priority Associated Diagnoses Date/Ti me RELEASE CARPAL TUNNEL Carpal tunnel syndrome on left 07/16/2024 1:30 PM EDT DECOMPRESSION ULNAR NERVE Carpal tunnel syndrome on left 07/16/2024 1:30 PM EDT documented as of this encounter Visit Diagnoses Diagnosis Carpal tunnel syndrome on left- Primary Carpal tunnel syndrome Dermatophytosis of nail- Primary Pain in toe of right foot Pain in soft tissues of limb Pain in toe of left foot Pain in soft tissues of limb Diabetic mononeuropathy simplex (CMS/HCC) Type II or unspecified type diabetes mellitus with neurological manifestations, not stated as uncontrolled Hammer toe of left foot Acquired hammer toe of right foot Carpal tunnel syndrome on left Carpal tunnel syndrome documented in this encounter Care Teams Clinical Technician Relationship Specialty Start Date End Date Vanessa Foy MD [address] [phone] PCP - General Internal Medicine 11/14/18 documented as of this encounter
--- OUTSIDE RECORDS SUMMARY | 2024-07-09 12:46 | XMS_ITS | Encounter Summary ---
Author Organization [employer] Address [address] [facility] 7t [place] [address] Care Team Providers Care Proofer Prepress Name Role Phone Vanessa Foy MD Primary Care Provide r Reason for Visit * Reason Comments Med Refill Encounter Details Date Type Department Care Team ([facility] st Contact Info) Description 04/16/2023 Refill [facility] CHC MED & PEDS [address] [place], [place] [phone] Vanessa Foy MD 230 [place] [address] Type 2 diabetes mellitus without complication, without long-term current use of insulin ([facility]) Social History Tobacco Use Types Packs/Day Years Used Date Smoking Tobacco: Never Smokeless Tobacco: Never Depression Answer Date Recorded Patient Health Questionnaire-9 Score 0 08/30/2022 Housing Stability Answer Date Recorded What is [...] Date Recorded Patient Health Questionnaire-2 Score 0 08/30/2022 Sex and Gender Information Value Date Recorded Sex Assigned at Male 02/12/2022 10:15 AM EDT Legal Sex Male 10:15 AM EDT Gender Identity Male 02/12/2022 10:15 AM EDT Sexual Orientation Choose not to disclose 2021 10:15 AM EDT documented as of this encounter Plan of Treatment Not on file documented as of this encounter Visit Diagnoses Diagnosis Type 2 diabetes mellitus without complication, without long-term current use of insulin ([facility]) documented in this encounter Additional Health Concerns Assessment Noted Time PHQ-9 Depression Total Score: 0 08/31/19 23 11:44 AM EDT documented as of this encounter Care Teams Proofer Prepress Relationship Specialty Start Date End Date Vanessa Foy MD 230 [place] [address] PCP - General Family Medicine 02/26/19 documented as of this encounter
--- OUTSIDE RECORDS SUMMARY | 2024-07-09 12:46 | XMS_ITS | Encounter Summary ---
Author Organization [employer] Address [address] [place] [address] Care Team Providers Care Western Philosophy Professor Name Role Phone Vanessa Foy MD Primary Care Provide r Reason for Visit * Reason Onset Date Comments Surgery 05/21/2024 Encounter Details Date Type Department Care Team (Late st Contact Info) Description 05/21/2024 Telephone Orthopedic Surgery - [place] 250 175 [facility] 250 [place] [phone] Livier Fulton MD 175 [facility] 140 [place] [phone] Surgery Social History Tobacco Use Types Packs/Day Years [...] on file documented as of this encounter Progress Notes * Linda Vidal - 05/21/2024 1:50 PM EST Patient's sister, Manuela, is calling on behalf of her brother, she would like to schedule his surgery with Dr Fulton for a CTR, has been waiting since November. States never received a call. Please advise. Please call Manuela @ [phone]. Thanks. documented in this encounter Plan of Treatment Upcoming Encounters Date Type Department Care Team (Late st Contact Info) Description 07/16/2024 1:30 PM EDT Hospital Encounter [facility] Main OR [address] [place] [phone] Livier Fulton MD [address] [phone] 07/16/2024 1:30 PM EDT - 07/16/2024 3:30 PM EDT Surgery [facility] Main OR [address] [place] [phone] Livier Fulton MD [address] [phone] OPEN RELEASE LEFT CARPAL TUNNEL, left cubital tunnel release [43054 (CPT??)] 07/27/2024 11:00 AM EDT Office Visit [facility] [address] [phone] Brianna Blandon PA [address] [phone] 09/24/2024 10:30 AM EDT Office Visit [facility] [address] [phone] Rivas Davis DPM [address] [phone] Scheduled Procedures Name Priority Associated Diagnoses Date/Ti me RELEASE CARPAL TUNNEL Carpal tunnel syndrome on left 07/16/2024 1:30 PM EDT DECOMPRESSION ULNAR NERVE Carpal tunnel syndrome on left 07/16/2024 1:30 PM EDT documented as of this encounter Visit Diagnoses Not on filedocumented in this encounter Care Teams Western Philosophy Professor Relationship Specialty Start Date End Date Vanessa Foy MD [address] [phone] PCP - General Internal Medicine 11/14/18 documented as of this encounter
--- OUTSIDE RECORDS SUMMARY | 2024-07-09 12:46 | XMS_ITS | Encounter Summary ---
Author Organization [employer] Address [address] [place] [address] Care Team Providers Care Sleeve Setter Name Role Phone Vanessa Foy MD Primary Care Provide r Reason for Visit * Reason Comments Pre-op Visit Ulnar decompression and eCTR DOS: 07/15/24 Encounter Details Date Type Department Care Team (Late st Contact Info) Description 06/29/2024 10:30 AM EDT Consult Orthopedic Surgery - [facility] 175 [facility] [address] [place] [phone] Livier Fulton MD [address] [phone] Carpal tunnel syndrome on left (Primary Dx); Cubital tunnel syndrome, left Social History Tobacco Use Types Packs/Day Years [...] Sign Reading Time Taken Comments Blood Pressure 135/88 06/29/2024 10:37 AM EDT Pulse 91 06/29/2024 10:37 AM EDT Temperature 37.1 ??C (98.7 ??F) 06/29/2024 10:37 AM E DT Respiratory Rate - - Oxygen Saturation - - Inhaled Oxygen Concentration - - Weight 68 kg (150 lb) 06/29/2024 10:37 AM EDT Height 160 cm (5' 3 ) 06/29/2024 10:37 AM EDT Body Mass Index 26.57 06/29/2024 10:37 AM EDT documented in this encounter Progress Notes * Livier Fulton MD - 06/29/2024 10:30 AM EDT PRE-OPERATIVE HISTORY & PHYSICAL PATIENT: Roshan Beach :1970 VISIT DATE:06/29/2024 HPI: Roshan Beach IS A 54 y.o. YEAR OLD male who presents for pre-operative exam. The patient is scheduled for left open carpal tunnel release and left ulnar nerve decompression at the elbow with possible transposition only if needed. Roshan is here today with his sister. He had presented with longstanding numbness tingling and pain in the left hand that was consistent both with carpal tunnel and cubital tunnel. He would like to proceed with surgical decompression as conservative measures were not controlling his symptoms. ROS: They report no recent colds flus or infections. They report no current dental issues. ALLERGIES: No Known Allergies PROBLEM LIST: Patient Active Problem List Diagnosis Chronic kidney disease Hypertension Lower leg pain Intellectual disability Right inguinal hernia Idiopathic scoliosis and kyphoscoliosis Umbilical hernia Vitamin D deficiency Carpal tunnel syndrome on left Cubital tunnel syndrome, left PAST SURGERIES: Past Surgical History: Procedure Laterality Date OTHER SURGICAL HISTORY PROCEDURE: ---- OTHER ----; COMMENT: surgery in private area OTHER SURGICAL HISTORY PROCEDURE: DC RPR 1ST INGUN HRNA AGE 5 YRS/> REDUCIBLE SOCIAL HISTORY: Social History Tobacco Use Smoking status: Never Smokeless tobacco: Never Substance Use Topics Alcohol use: No MEDICATIONS: Current Outpatient Medications: acetaminophen (TYLENOL) 500 mg tablet, Take 1 tablet (500 mg total) by mouth every 6 (six) hours ifneeded., Disp: , Rfl: amLODIPine-atorvastatin (CADUET) 2.5-20 mg per tablet, Take 1 tablet by mouth 1 (one) time each day., Disp: , Rfl: atorvastatin (LIPITOR) 40 mg tablet, Take 1 tablet (40 mg total) by mouth 1 (one) time each day., Disp: , Rfl: carbamide peroxide (Ear Drops, carbamide peroxide,) 6.5 % otic solution, 5 drops 2 (two) times a day. Tilt head so ear to be treated points towards the ceiling. Hold medication in ear using part of acotton ball., Disp: , Rfl: CHOLECALCIFEROL, VITAMIN D3, ORAL, Take by mouth., Disp: , Rfl: clotrimazole (LOTRIMIN) 1 % cream, Apply topically 2 (two) times a day., Disp: , Rfl: FREESTYLE LANCETS MISC, by Not Applicable route., Disp: , Rfl: glucose blood test strip, glucose blood test strips (ASCENSIA AUTODISC ,ONE TOUCH ULTRA TEST ) strip 1 Strip by In Vitro route as needed., Disp: , Rfl: insulin glargine,hum.rec.anlog (LANTUS U-100 INSULIN SUBQ), Inject under the skin., Disp: , Rfl: lisinopril (PRINIVIL,ZESTRIL) 40 mg tablet, Take 1 tablet (40 mg total) by mouth 1 (one) time each day., Disp: , Rfl: melatonin 2.5 mg tablet,chewable, Chew., Disp: , Rfl: metFORMIN (GLUCOPHAGE) 500 mg/5 mL solution oral solution, Take by mouth., Disp: , Rfl: pantoprazole (PROTONIX) 40 mg EC tablet, Take 1 tablet (40 mg total) by mouth 1 (one) time each day., Disp: , Rfl: senna (SENOKOT) 8.6 mg tablet, Take 1 tablet (8.6 mg total) by mouth 1 (one) time each day., Disp: , Rfl: PHYSICAL EXAM: Visit Vitals BP 135/88 Pulse 91 Temp 37.1 ??C (98.7 ??F) Ht 1.6 m (63 ) Wt 68 kg (150 lb) BMI 26.57 kg/m?? Smoking Status Never BSA 1.71 m?? APPEARANCE: Patient is alert and oriented and in no acute distress. HEENT: Normocephalic. Pupils are equal round and reactive to light. HEART: Heart rate is regular. There are no appreciable murmurs, rubs, or gallops. There is no JVD. LUNGS: Clear to auscultation. EXTREMITIES: He is able to flex and extend and abduct and adduct his fingers. He does appear to have some slight flattening of the thenar eminence on the left when compared to the right. Grossly has intact sensation to light touch but subjectively notes a little tingle on the fingertips thumb indexlong and slightly on the ring on the left. He has a positive Tinel's and a positive Durkan's compression test on the left and that the tingling gets more noticeable. He has no pain to palpation over the wrist or base of thumb. He does however have a positive Tinel's at the cubital canal. ASSESSMENT & PLAN: ICD-10-CM ICD-9-CM 1. Carpal tunnel syndrome on left G56.02 354.0 2. Cubital tunnel syndrome, left G56.22 354.2 I reviewed the surgery with the patient. I showed the patient where the incisions would be. We reviewed the possibility of needing to transpose the ulnar nerve only if necessary. We talked about the surgery and the postoperative course. Risks of the procedure were reviewed. These can include, but are not limited to, nerve, tendon, or artery damage. There can also be complications with infection, bleeding, persistent pain, incomplete resolution of symptoms, and possibly the need for additional interventions. Any of these events could compromise the limb on a temporary or permanent basis. Therecan also be medical complications such as heart or lung dysfunction or blood clots that can put the patient at risk. We reviewed the recuperative time and limitations. Pain management was reviewed with the patient. Typically Tylenol, an anti- inflammatory, and then, if necessary, a few tablets of pain medication. The patient indicated understanding. Patient's questions were answered. Consent was obtained. POST-OPERATIVE APPOINTMENT DATE: 07/27/2024 with Brianna documented in this encounter Plan of Treatment Upcoming Encounters Date Type Department Care Team (Late st Contact Info) Description 07/16/2024 1:30 PM EDT Hospital Encounter [facility] Main OR [address] [place] [phone] Livier Fulton MD [address] [place] [phone] 07/16/2024 1:30 PM EDT - 07/16/2024 3:30 PM EDT Surgery [facility] OR [address] [place] [phone] Livier Fulton MD 175 [facility] 140 [place] [phone] OPEN RELEASE LEFT CARPAL TUNNEL, left cubital tunnel release [[id number] (CPT??)] 07/27/2024 11:00 AM EDT Office Visit Orthopedic Surgery [facility] 175 [facility] 140 [place] [phone] Brianna Blandon PA 174 [facility] 140 [place] [phone] 09/24/2024 10:30 AM EDT Office Visit Orthopedic [facility] 250 175 [facility] 250 [place] [phone] Rivas Davis DPM 175 [facility] 250 [place] [address] Scheduled Procedures Name Priority Associated Diagnoses Date/Ti me RELEASE CARPAL TUNNEL Carpal tunnel syndrome on left 07/16/2024 1:30 PM EDT DECOMPRESSION ULNAR NERVE Carpal tunnel syndrome on left 07/16/2024 1:30 PM EDT documented as of this encounter Visit Diagnoses Diagnosis Carpal tunnel syndrome on left- Primary Carpal tunnel syndrome Carpal tunnel syndrome on left- Primary Carpal tunnel syndrome Cubital tunnel syndrome, left Carpal tunnel syndrome on left Carpal tunnel syndrome documented in this encounter Care Teams Sleeve Setter Relationship Specialty Start Date End Date Vanessa Foy MD 230 [facility] 1 [place] [phone] PCP - General Internal Medicine 11/14/18 documented as of this encounter
--- OUTSIDE RECORDS SUMMARY | 2024-07-09 12:46 | XMS_ITS | Clinical Summary ---
Author Organization [employer] Address [address] [facility] [address] [place] [address] Care Team Providers Care Freight Air Brake Fitter Name Role Phone Vanessa Foy MD Primary Care Provide r Allergies No known active allergies Medications melatonin 5 MG tablet TAKE 1 TABLET BY MOUTH EVERYDAY AT BEDTIME 90 tablet 1 07/25/19 23 Active FreeStyle lancets USE 1 LANCET BY TO SKIN ROUTE 3 TIMES EVERY DAY 11/27/19 23 Active Senna-Time 8.6 MG tablet TOME DOS TABLETAS POR VIA ORAL TODOS LOS CHAVARRIA CUANDO SEA NECESARIO PARA ESTRENIMIENT O. 180 tablet 3 02/23/20 23 Active Senna-Time 8.6 MG tablet TOME DOS TABLETAS POR V A ORAL TODOS LOS D CUANDO SEA NECESARIO PARA ESTRENIMIENT O. 12/22/19 23 Active clotrimazole (Lotrimin) 1 % cream Apply topically 2 times daily. 30 g 02/27/20 23 Active triamcinolone (Kenalog) 0.1 % creamIndications: Rash APPLY A THIN LAYER TO THE AFFECTED AREA ONCE DAILY IF NEEDED 45 g 3 10/08/19 24 Active Blood Glucose Monitoring Suppl (FreeStyle Jbphh Lite) w/Device kitIndications:Ty pe 2 diabetes mellitus with hyperglycemia, without long-term current use of insulin ([facility]) Use to test blood sugar 3 times daily 1 kit 11/25/19 24 Active lidocaine (Lidoderm) 5 % patchIndications: Right hip pain Apply 1 patch topically Once per day. Remove & discard patch within 12 hours or as directed by MD. 30 patch 1 01/08/20 24 Active glucose blood (FREESTYLE LITE) test strip USE TO TEST BLOOD SUGAR THREE TIMES A DAY 100 strip 01/21/20 24 Active Diclofenac Sodium 1 % gelIndications:Bi lateral carpal tunnel syndrome APPLY 1 INCH TOPICALLY IF NEED IN MORNING AND AT BED (APPLY TWICE DAILY ON AFFECTED AREA IF NEEDED). 100 g 1 01/21/20 24 Active metFORMIN (Glucophage) 500 MG tabletIndications :Type 2 diabetes mellitus without complication, without long-term current use of insulin (CMS/HCC) TAKE 1 TABLET BY MOUTH TWICE A DAY WITH BREAKFAST AND EVENING MEAL 180 tablet 1 01/21/20 24 Active lisinopril 40 MG tabletIndications :HTN (hypertension), benign TAKE 1 TABLET BY MOUTH EVERY MORNING 90 tablet 1 01/21/20 24 Active FreeStyle lancets 1 each by Other route 3 times daily. TEST BLOOD SUGAR 3 TIMES A DAY 100 each 2 03/04/20 24 Active atorvastatin (Lipitor) 40 MG tabletIndications :Hyperlipidemia, unspecified hyperlipidemia type TAKE 1 TABLET BY MOUTH EVERY DAY 90 tablet 03/16/20 24 Active amLODIPine (Norvasc) 2.5 MG tabletIndications :Essential hypertension TAKE 2 TABLETS BY MOUTH EVERY MORNING 180 tablet 1 04/28/19 25 Active pantoprazole (ProtoNix) 40 MG EC tabletIndications :Gastroesophageal reflux disease without esophagitis TAKE 1 TABLET BY MOUTH EVERY MORNING. DO NOT CRUSH, CHEW, OR SPLIT. 90 tablet 06/25/19 25 Active pantoprazole (ProtoNix) 40 MG EC tabletIndications :Gastroesophageal reflux disease without esophagitis TAKE 1 TABLET BY MOUTH EVERY MORNING. DO NOT CRUSH, CHEW, OR SPLIT. 90 tablet 03/16/20 24 025 Discontinued Active Problems Problem Noted Date Diagnosed Date Right hip pain 01/08/2024 Colon cancer screening 07/04/2023 Impacted cerumen of left ear 07/04/2023 Bilateral carpal tunnel syndrome 06/06/2023 Assessment & Plan (07/04/2023 9:38 AM EDT): NCS reviewed with patient and family, I advise use of wrist braces prescription will be generated Also referral to hand surgery Assessment & Plan (06/06/2023 1:34 PM EST): Symptomatology suggestive of CTS Plan: Wrist splinting at night NCS Follow up with PCP Varicose veins of both lower extremities 023 Abdominal discomfort 11/09/2022 Benign prostatic hyperplasia with urinary freque ncy 11/09/2022 Balanitis 11/09/2022 Diverticular disease 11/09/2022 Dysuria 11/09/2022 Impacted cerumen 11/09/2022 Knee pain 11/09/2022 Otitis externa 11/09/2022 Type 2 diabetes mellitus without complication Venous insufficiency of lower extremity 08/31/19 Assessment & Plan (09/05/2022 6:21 PM EDT): -Skin lesions on his legs are likely due to Venous Stasis Dermatitis -Pain may be due to diabetic neuropathy -Advised to use topical steroid cream judiciously -elevate legs, low-sodium intake, compression stocking -optimize treatment for T2DM -Will refer him to Vascular Specialist for further evaluation and management. Rash 08/30/2022 Assessment & Plan (09/05/2022 6:22 PM EDT): - likely venous stasis dermatitis - refer to vascular specialist - judicious use of steroid Type 2 diabetes mellitus wit h hyperglycemia, without long-term current use of insulin 08/30/2022 Assessment & Plan (04/07/2024 11:47 AM EST): Diabetes is: controlled - Lab Results Component Value Date HGBA1C 6.7 (A) 04/07/2024 HGBA1C 6.6 (A) 10/08/2023 HGBA1C 6.9 (A) 07/04/2023 - Lab Results Component Value Date MICROALBUR 60.0 01/08/2024 CREATININE 0.97 01/08/2024 -Changes: none - Diabetic eye exam:pending - Diabetic foot exam:pending - Continue lifestyle modifications - Continue current medications - Follow up: 3 months Assessment & Plan (01/14/2024 1:24 PM EDT): Diabetes is: controlled - Lab Results Component Value Date HGBA1C 6.6 (A) 10/08/2023 HGBA1C 6.9 (A) 07/04/2023 HGBA1C 7.8 (A) 11/15/2022 - Lab Results Component Value Date MICROALBUR 60.0 01/08/2024 CREATININE 0.97 01/08/2024 -Changes: none - Diabetic eye exam:pending - Diabetic foot exam:pending - Continue lifestyle modifications - Continue current medications - Follow up: 3 months Assessment & Plan (10/08/2023 4:40 PM EDT): Diabetes is: controlled - Lab Results Component Value Date HGBA1C 6.6 (A) 10/08/2023 HGBA1C 6.9 (A) 07/04/2023 HGBA1C 7.8 (A) 11/15/2022 - Lab Results Component Value Date MICROALBUR 5.6 01/31/2021 CREATININE 1.01 06/15/2022 -Changes: none - Diabetic eye exam:referral today - Diabetic foot exam:patient is being follow by podiatry - Continue lifestyle modifications - Continue current medications - Follow up: 3 months Assessment & Plan (07/04/2023 9:38 AM EDT): Diabetes is: controlled - Lab Results Component Value Date HGBA1C 6.9 (A) 07/04/2023 HGBA1C 7.8 (A) 11/15/2022 HGBA1C 8.5 (A) 06/15/2022 - Lab Results Component Value Date MICROALBUR 5.6 01/31/2021 CREATININE 1.01 06/15/2022 -Changes: no changes - Diabetic eye exam:Patient will schedule his appointment - Diabetic foot exam: pending - Continue lifestyle modifications - Continue current medications - Follow up: 3 months Assessment & Plan (11/15/2022 9:58 AM EDT): Patient was taking metformin 500mg only once a day,, today I instructed to increase it to BID and to monitor his diet also Diabetic foot exam up to date he is followed by podiatry Eye care appointment had to be re-schedule Assessment & Plan (09/05/2022 6:21 PM EDT): -last A1C 8.5% -continue current treatment plan per PCP -consider evaluation with NCT if his pain persists Overweight 06/23/2018 Essential hypertension 06/23/2018 Assessment & Plan (04/07/2024 11:46 AM EST): I advised: - Aerobic exercise to reduce BP. Initial goal of 30 min walk 3-5x/week. Increase as tolerated. - low-sodium diet (goal: <2g/day) and heart healthy diet such as DASH to reduce BP and prevent ASCVD. - Home BP monitoring 1-2 x day with goal of <140/90. - Seek immediate medical attention for chest pain, palpitations, SOB, syncope, or sudden changes in mental status. - Do not change or discontinue current prescriptions without first consulting health care provider Assessment & Plan (01/14/2024 1:23 PM EDT): Maintenance: BMP: up to date Lipid Panel: up to date ASCVD Risk: risk is now 6.4% he is on atorvastatin 40mg daily - Aerobic exercise to reduce BP. Initial goal of 30 min walk 3-5x/week. Increase as tolerated. - low-sodium diet (goal: <2g/day) and heart healthy diet such as DASH to reduce BP and prevent ASCVD. - Home BP monitoring 1-2 x day with goal of <140/90. - Seek immediate medical attention for chest pain, palpitations, SOB, syncope, or sudden changes in mental status. - Do not change or discontinue current prescriptions without first consulting health care provider Assessment & Plan (10/08/2023 4:39 PM EDT): - Aerobic exercise to reduce BP. Initial goal of 30 min walk 3-5x/week. Increase as tolerated. - low-sodium diet (goal: <2g/day) and heart healthy diet such as DASH to reduce BP and prevent ASCVD. - Home BP monitoring 1-2 x day with goal of <140/90. - Seek immediate medical attention for chest pain, palpitations, SOB, syncope, or sudden changes in mental status. - Do not change or discontinue current prescriptions without first consulting health care provider Assessment & Plan (07/04/2023 9:36 AM EDT): Patient comes with his sister she tells me she is only taking amlodipine and stopped lisinopril I advise he should be taking both medications - Aerobic exercise to reduce BP. Initial goal of 30 min walk 3-5x/week. Increase as tolerated. - low-sodium diet (goal: <2g/day) and heart healthy diet such as DASH to reduce BP and prevent ASCVD. - Home BP monitoring 1-2 x day with goal of <140/90. - Seek immediate medical attention for chest pain, palpitations, SOB, syncope, or sudden changes in mental status. - Do not change or discontinue current prescriptions without first consulting health care provider Assessment & Plan (06/06/2023 1:45 PM EST): Pt with HTN despite daily use of: Lisinopril 40 mg po daily Start Amlodipine 2.5 mg po daily Follow up in 1 month with PCP Assessment & Plan (11/15/2022 9:57 AM EDT): - Aerobic exercise to reduce BP. Initial goal of 30 min walk 3-5x/week. Increase as tolerated. - low-sodium diet (goal: <2g/day) and heart healthy diet such as DASH to reduce BP and prevent ASCVD. - Home BP monitoring 1-2 x day with goal of <140/90. - Seek immediate medical attention for chest pain, palpitations, SOB, syncope, or sudden changes in mental status. - Do not change or discontinue current prescriptions without first consulting health care provider Cough 12/06/2017 Fever with chills 12/06/2017 Chronic constipation 10/28/2017 Microalbuminuria 10/28/2017 Chronic kidney disease 10/28/2017 Assessment & Plan (06/06/2023 1:44 PM EST): Pt with HTN despite daily use of: Lisinopril 40 mg po daily Start Amlodipine 2.5 mg po daily Follow up in 1 month with PCP Vitamin D deficiency 10/28/2017 Pain of right lower extremity 09/16/2017 Intellectual disability 09/28/2011 Scoliosis (and kyphoscoliosis), idiopathic 09/27 Encounters Date Type Department Care Team Description 06/24/2024 Refill [facility] MED & PEDS [address] [place] [address] Vanessa Foy MD Gastroesophageal reflux disease without esophagitis 05/25/2024 Refill [facility] MED & PEDS [address] [place] [address] Vanessa Foy MD Gastroesophageal reflux disease without esophagitis; Type 2 diabetes mellitus without complication, without long-term current use of insulin ([facility]); HTN (hypertension), benign 05/25/2024 Telephone [facility] MEDICINE [address] [place] [address] Vanessa Foy MD 04/27/2024 Refill [facility] PEDS [address] [place] [address] Vanessa Foy MD Gastroesophageal reflux disease without esophagitis 04/27/2024 Refill [facility] [address] [place] [address] Deric Rivas MD Essential hypertension from Last 3 Months Immunizations Name Administration Dates Next Due DTP 05/08/1972,04/12/1971 Hep B, adult 08/17/1996,04/03/1996,02/04/1996 Influenza injectable quadriv alent IIV4 with preservative 03/01/2016 Influenza injectable quadriv alent preservative free 04/23/2023,01/26/2020,04/14/2019 Influenza, IIV3, injectable 01/23/2011 Influenza, Split (incl. judy fied surface antigen) 12/23/2012,03/25/2012 MMR 01/17/1996 Measles 05/17/1971 Mumps 11/23/1983 OPV, Trivalent 12/03/1983, 7,05/08/1972,1970 Pneumococcal Conjugate PCV 20 07/04/2023 TD (adult), 2 Lf tetanus tox oid, preservative free, adsorbed 02/20/2006,11/12/1995,12/03/1983,1976 Tdap 11/15/2022,05/13/2012 Zoster, Recombinant 04/23/2023,11/22/2022 Social History Tobacco Use Types Packs/Day Years Used Date Smoking Tobacco: Never Passive Smoke Exposure: Never Smokeless Tobacco: Never Tobacco Cessation:Counseling Given: Not Answered Alcohol Use Standard Drinks/Week Comments Never 0 [...] not to disclose 2021 10:15 AM EDT Last Filed Vital Signs Vital Sign Reading Time Taken Comments Blood Pressure 132/93 04/07/2024 9:28 AM EST Pulse 85 04/07/2024 9:26 AM EST Temperature 36.7 ??C (98 ??F) 04/07/2024 9:26 AM EST Respiratory Rate 15 04/07/2024 9:26 AM EST Oxygen Saturation 100% 01/08/2024 11:14 AM EDT Inhaled Oxygen Concentration - - Weight 66.2 kg (146 lb) 04/07/2024 9:26 AM EST Height 160 cm (5' 3 ) 04/07/2024 9:26 AM EST Body Mass Index 25.86 04/07/2024 9:26 AM EST Plan of Treatment Health Maintenance Due Date Last Done Comments CT Colonography 1970 FIT 1970 FOBT 1970 Sigmoidoscopy 1970 Diabetes: Foot Exam 1980 Eye Exam 1980 Hepatitis C Screening 1988 Colonoscopy 09/08/2021 09/08/2020 Colorectal Cancer Screening 09/15/2023 COVID-19 Vaccine ( season) 2023 04/21/2021, 08/25/2020, 07/28/2020 Influenza Vaccine (#1) 2023 , 01/26/2020, 04/14/2019, Additional history exists SDOH Screening 09/25/2024 09/26/2023 Diabetes: Hemoglobin A1C 10/06/2024 024, 10/08/2023, 07/04/2023, Additional history exists Depression Screening 10/07/2024 10/08/2023, 10/08/19 Alcohol/Substance Use Screening 01/07/2025 01/08/2024 Diabetes: Urine Protein Screening 01/07/2025 01/08/2024, 01/31/2021, 01/07/2020 Lipid Panel 01/07/2025 01/08/2024, 04/2 10/2021, 04/22/2020, Additional history exists Tobacco Screening 04/07/2025 04/07/2024 FIT DNA/Cologuard 09/13/2026 09/14/2023 DTaP/Tdap/Td Vaccines (6 - Td or Tdap) 11/15/2032 11/15/2022, 05/13/2012, 02/20/2006, Additional history exists RSV Patients and Patients Aged 60 years or older (1 - 1-dose 75+ series) 2045 IPV Vaccines Completed 12/03/1983, 10/1976, 05/08/1972, Additional history exists Hepatitis B Vaccines Completed 08/17/1996, 04/03/1996, 02/04/1996 HIV Screening Completed 04/17/2019 Zoster Vaccines Completed 04/23/2023, 11/22/2022 Pneumococcal Vaccine: 50+ Years Completed 07/04/2023 HIB Vaccines Aged Out No longer eligi ble based on patient's age to complete this topic HPV Vaccines Aged Out No longer eligi ble based on patient's age to complete this topic Hepatitis A Vaccines Aged Out No long er eligible based on patient's age to complete this topic Meningococcal Vaccine Aged Out No luis alberto ashley eligible based on patient's age to complete this topic RSV under 20 months Aged Out No longe r eligible based on patient's age to complete this topic Rotavirus Vaccines Aged Out No longer eligible based on patient's age to complete this topic Procedures Procedure Name Priority Date/Time Associated Diagnosis Comments POCT GLYCATED HEMOGLOBIN, TOTAL Routine 04/07/2024 9:28 AM EST Type 2 diabetes mellitus with hyperglycemia, without long-term current use of insulin (CMS/HCC) ALBUMIN, RANDOM URINE W/CREATININE Routine 01/08/2024 12:00 PM EDT Type 2 diabetes mellitus with hyperglycemia, without long-term current use of insulin (CMS/HCC) LIPID PANEL WITH REFLEX TO DIRECT LDL Routine 01/08/2024 12:00 PM EDT Type 2 diabetes mellitus with hyperglycemia, without long-term current use of insulin (CMS/HCC) LAB COLOGUARD?? COLON CANCER SCREEN Routine 09/14/2023 7:00 PM EDT Colon cancer screening HM COLONOSCOPY Routine 09/08/2020 ZZZ HISTORICAL HIV AB/AG Routine 04/17/2019 8:52 AM EST from Last 3 Months or Most Recently Relevant to Health Maintenance Results * (ABNORMAL) POCT HGB A1C (04/07/2024 9:28 AM EST) Hemoglobin A1C 6.7(A) 4.0 - 6.0 % QC Media Lot # [id number] Lot# Expiration Date ,624 Blood 04/07/2024 9:28 AM EST us Vanessa Barth MD POINT OF CARE TEST EN TER/EDIT ORDERABLES Final Result * Lipid Panel with Reflex to Direct LDL (01/08/2024 12:00 PM EDT) Triglycerides 90 <150 mg/dL [facility] Comment:Desirable Triglyceri de: less than 150 mg/dLBorderline High Triglyceride 150-199 mg/dLHigh Triglyceride: 200-499 mg/dLVery High Triglyceride: greater than or equal to 5OO mg/dL Cholesterol 139 <200 mg/dL [facility] Comment:Desirable Cholestero l: less than 200 mg/dLBorderline High Cholesterol: 200-239 mg/dLHigh Cholesterol: greater than 239 mg/dL LDL Cholesterol Calculated 67 <100 mg/dL [facility] Comment:Desirable LDL: less than 100 mg/dLNear Optimal/Above Optimal LDL: 110- 129 mg/dLBorderline High LDL: 130-159 mg/dLHigh LDL: 160-189 mg/dLVery High LDL: greater than or equal to 190 mg/dL HDL Cholesterol 54 >40 mg/dL [facility] Comment:Desirable HDL: great er than 40 mg/dL Note: This HDL assay may give artificially low results in patients with liver disease. Blood 01/08/2024 12:0 0 PM EDT 01/08/2024 1:20 PM EDT us Vanessa Barth MD LAB BLOOD ORDERABLES Final Result [facility] [address] [place], [place] [phone] * (ABNORMAL) Albumin, Random Urine W/Creatinine (01/08/2024 12:00 PM EDT) Creatinine, Urine 58.35 mg/dL [facility] Microalbumin Urine 60.0 mg/L [facility] Microalbum Creatinine Ratio Ur 102.8(H) <30 ug/mg cr [facility] Comment:Albumin/Creatinine R atio Reference Ranges: Normal: < 30 ug/mg creatinine Microalbuminuria: 30 - 300 ug/mg creatinineClinical Albuminuria: > 300 ug/mg creatinine Urine (Urine, Random) 01/08/2024 12:00 PM EDT 01/08/2024 1:19 PM EDT Vanessa Barth MD LAB URINE ORDERABLES Final Result [facility] [address] [place] [phone] * Cologuard?? colon cancer screening (09/14/2023 7:00 PM EDT) Cologuard Result Negative Negative 09/20/19 5:52 AM EDT [facility] (CLIA #:[id number]) Comment: NEGATIVE TEST RESULT. A negative Cologuard result indicates a low likelihood that a colorectal cancer (CRC) or advanced adenoma (adenomatous polyps with more advanced pre-malignant features) ??is present. The chance that a person with a negative Cologuard test has a colorectal cancer is less than 1 in 1500 (negative predictive value >99.9%) or has an ??advanced adenoma is less than ??5.3% (negative predictive value 94.7%). These data are based on a prospective cross-sectional study of 10,000 individuals at average risk for colorectal cancer who were screened with both Cologuard and colonoscopy. (Kathya Shaw al, N Engl J Med 2014;370(14):1286- 1297) The normal value (reference range) for this assay is negative. COLOGUARD RE-SCREENING RECOMMENDATION: Periodic colorectal cancer screening is an important part of preventive healthcare for asymptomatic individuals at average risk for colorectal cancer. ??Following a negative Cologuard result, the [place] [employer] and U.S. Multi-Society Task Force screening guidelines recommend a Cologuard re-screening interval of 3 years. References: [place] [employer] Guideline for Colorectal Cancer Screening: https://www.cancer.org/cancer/wubcm-siyfhh-gyyrey/favlqdizl-lbzhyiwvn-voveijo/ac s-rec ommendations.html.; Janes DK, Nina CR, Jenn FisherK, Colorectal Cancer Screening: Recommendations for Physicians and Patients from the U.S. Multi-Society Task Force on Colorectal Cancer Screening , Am J Gastroenterology 2017; 112:1048-8896. TEST DESCRIPTION: Composite algorithmic analysis of stool DNA-biomarkers with hemoglobin immunoassay. ?? Quantitative values of individual biomarkers are not reportable and are not associated with individual biomarker result reference ranges. Cologuard is intended for colorectal cancer screening of adults of either sex, 45 years or older, who are at average-risk for colorectal cancer (CRC). Cologuard has been approved for use by the U.S. FDA. The performance of Cologuard was established in a cross sectional study of average-risk adults aged 50-84. Cologuard performance in patients ages 45 to 49 years was estimated by sub-group analysis of near-age groups. Colonoscopies performed for a positive result may find as the most clinically significant lesion: colorectal cancer [4.0%], advanced adenoma (including sessile serrated polyps greater than or equal to 1cm diameter) [20%] or non- advanced adenoma [31%]; or no colorectal neoplasia [45%]. These estimates are derived from a prospective cross-sectional screening study of 10,000 individuals at average risk for colorectal cancer who were screened with both Cologuard and colonoscopy. (Kathya Shaw al, N Engl J Med 2014;370(14):4683-8470.) Cologuard may produce a false negative or false positive result (no colorectal cancer or precancerous polyp present at colonoscopy follow up). A negative Cologuard test result does not guarantee the absence of CRC or advanced adenoma (pre-cancer). The current Cologuard screening interval is every 3 years. ([place] [employer] and U.S. Multi-Society Task Force). Cologuard performance data in a 10,000 patient pivotal study using colonoscopy as the reference method can be accessed at the following location: www.[employer].Travergence/results. Additional description of the Cologuard test process, warnings and precautions can be found at www.[employer].com. Stool specimen (specimen) Rectal contents / Unknown 09/14/2023 7:00 PM EDT 09/17/2023 1:42 PM EDT Vanessa Barth MD LAB MOLECULAR DIAGNOS TICS ORDERABLES Final Result [facility] (CLIA #:[id number]) [place] [address], * Hm Colonoscopy (09/08/2020) Historical Provider MD HEALTH MAINTENANCE Final Result * HIV AB/AG (04/17/2019 8:52 AM EST) [facility] HIV AG/AB NONREACTIVE [facility] Comment: HIV-1 p24 Ag and/or HIV-1/HIV-2 Ab not detected. ?? A test result that is nonreactive does not exclude the possibility of exposure to or infection with HIV-1 and/or HIV-2. Nonreactive results in this assay for individuals with prior exposure to HIV-1 and/or HIV-2 may be due to antigen and antibody levels that are below the limit of detection of this assay. ?? The [employer] HIV Ag/Ab Combo assay result and supplemental assay results should be interpreted in conjunction with the patient's clinical presentation, history and other laboratory results. ??If the results are inconsistent with clinical evidence, additional testing is suggested to confirm the result. 04/17/2019 8:52 AM EST Vanessa Barth MD HISTORICAL/NON ORDERA BLE LABS Final Result Performing Organization Address [facility]/ZIP Co de Phone Number [facility] [address] from Last 3 Months or Most Recently Relevant to Health Maintenance Insurance [facility] Advance Directives Documents on File Type Date Recorded Patient Resin Coater Expl anation HealthCare Proxy 03/04/2024 2:25 PM proxy Care Teams Freight Air Brake Fitter Relationship Specialty Start Date End Date Vanessa Foy MD [address] [place] [phone] PCP - General Family Medicine 02/26/19
--- OUTSIDE RECORDS SUMMARY | 2024-07-09 12:46 | XMS_ITS | Encounter Summary ---
Author Organization [employer] Address [address] [facility] 7t [place] [address] Care Team Providers Care Spool Maker Name Role Phone Vanessa Foy MD Primary Care Provide r Reason for Visit * Reason Comments Med Refill Encounter Details Date Type Department Care Team (Late st Contact Info) Description 05/25/2024 Refill [facility] CHC MED & PEDS [address] [place], [place] [phone] Vanessa Foy MD [address] [place] [address] Gastroesophageal reflux disease without esophagitis; Type 2 diabetes mellitus without complication, without long-term current use of insulin ([facility]); HTN (hypertension), benign Social History Tobacco Use Types Packs/Day Years [...] the past 12 months, has t he [employer] gas, oil or water company threatened to [...] Gastroesophageal reflux disease without esophagitis Esophageal reflux Type 2 diabetes mellitus without complication, without long-term current use of insulin ([facility]) HTN (hypertension), benign Essential hypertension, benign documented in this encounter Additional Health Concerns Assessment Noted Time PHQ-9 Depression Total Score: 1 10/08/19 24 10:58 AM EDT documented as of this encounter Care Teams Spool Maker Relationship Specialty Start Date End Date Vanessa Foy MD [address] [place] [phone] PCP - General Family Medicine 02/26/19 documented as of this encounter
--- OUTSIDE RECORDS SUMMARY | 2024-07-09 12:46 | XMS_ITS | Encounter Summary ---
Author Organization [employer] [facility] Address [address] [facility] 7t [place] [address] Care Team Providers Care Bobbin Cleaner Hand Name Role Phone Vanessa Foy MD Primary Care Provide r Encounter Details Date Type Department Care Team (Latest Contact Info) Description 06/02/2021 Abstract [facility] CONVERSIONS Dental, Provider, DDS Social History Tobacco Use Types Packs/Day Years Used Date Smoking Tobacco: Never Assessed Sex and Gender Information Value Date Recorded [...] on filedocumented in this encounter Care Teams Bobbin Cleaner Hand Relationship Specialty Start Date End Date Vanessa Foy MD [address] [place] [address] PCP - General Family Medicine 02/26/19 documented as of this encounter
--- OUTSIDE RECORDS SUMMARY | 2024-07-09 12:46 | XMS_ITS | Encounter Summary ---
Author Organization [employer] Address [address] [facility] 7t [place] [address] Care Team Providers Care Revenue Liaison Name Role Phone Vanessa Foy MD Primary Care Provide r Reason for Visit * Reason Comments Med Refill Encounter Details Date Type Department Care Team ([facility] st Contact Info) Description 09/13/2023 Refill [facility] MEDICINE [address] [place] [address] Jayda Zhang MD [address] [place], [place] [phone] Social History Tobacco Use Types Packs/Day Years Used Date Smoking Tobacco: Never Passive Smoke Exposure: Never Smokeless Tobacco: Never Depression Answer Date [...] documented as of this encounter Care Teams Revenue Liaison Relationship Specialty Start Date End Date Vanessa Foy MD [address] [place] [id number] PCP - General Family Medicine 02/26/19 documented as of this encounter
--- OUTSIDE RECORDS SUMMARY | 2024-07-09 12:47 | XMS_ITS | Encounter Summary ---
Author Organization [employer] Address [address] [facility] [address] 7t [place] [address] Care Team Providers Care Training Officer Name Role Phone Vanessa Foy MD Primary Care Provide r Encounter Details Date Type Department Care Team (Late st Contact Info) Description 02/22/2023 Orders Only [facility] CHC MED & PEDS [address] [place] [address] Ya Rice LPN Social History Tobacco Use Types Packs/Day Years [...] documented as of this encounter Care Teams Training Officer Relationship Specialty Start Date End Date Vanessa Foy MD [address] [place] [phone] PCP - General Family Medicine 02/26/19 documented as of this encounter
--- OUTSIDE RECORDS SUMMARY | 2024-07-09 12:47 | XMS_ITS | Encounter Summary ---
Author Organization [employer] [facility] Address [address] [facility] [address]t [place] [address] Care Team Providers Care Reinforcing Steel Machine Operator Name Role Phone Vanessa Foy MD Primary Care Provide r Encounter Details Date Type Department Care Team (Late st Contact Info) Description 12/25/2022 Orders Only [facility] MEDICINE [address] [place], [place] [phone] Provider, MD Terrie Social History Tobacco Use Types Packs/Day Years Used Date Smoking Tobacco: Never Smokeless Tobacco: Never Depression Answer Date Recorded Patient Health Questionnaire-9 Score 0 08/30/2022 Depression Answer Date Recorded Patient Health Questionnaire-2 [...] on file documented as of this encounter Procedures Procedure Name Priority Date/Time Associated Diagnosis Comments COLONOSCOPY Routine 09/08/2020 documented in this encounter Results * Colonoscopy (09/08/2020) Historical Provider HEALTH MAINTENANCE Final Result documented in this encounter Visit Diagnoses Not on filedocumented in this encounter Additional Health Concerns Assessment Noted Time PHQ-9 Depression Total Score: 0 08/31/19 23 11:44 AM EDT documented as of this encounter Care Teams Reinforcing Steel Machine Operator Relationship Specialty Start Date End Date Vanessa Foy MD [address] [place], [place] [phone] PCP - General Family Medicine 02/26/19 documented as of this encounter
--- OUTSIDE RECORDS SUMMARY | 2024-07-09 12:47 | XMS_ITS | Encounter Summary ---
Author Organization [employer] [facility] Address [address] [facility] 7t [place] [address] Care Team Providers Care Telecommunications Line Mechanic Name Role Phone Vanessa Foy MD Primary Care Provide r Reason for Visit * Reason Comments Med Refill Encounter Details Date Type Department Care Team (Late st Contact Info) Description 12/24/2022 Refill [facility] MEDICINE [address] [place], [place] [phone] Vanessa Fyo MD [address] [place], [place] [phone] Social History Tobacco Use Types Packs/Day Years [...] documented as of this encounter Care Teams Telecommunications Line Mechanic Relationship Specialty Start Date End Date Vanessa Foy MD [address] [place] [address] PCP - General Family Medicine 02/26/19 documented as of this encounter
--- OUTSIDE RECORDS SUMMARY | 2024-07-09 12:47 | XMS_ITS | Encounter Summary ---
Author Organization [employer] [facility] Address [address] [facility] 7t [place] [address] Care Team Providers Care Weave Defect Charting Clerk Name Role Phone Vanessa Foy MD Primary Care Provide r Encounter Details Date Type Department Care Team (Latest Contact Info) Description 10/15/2018 Abstract [facility] CONVERSIONS Dental, Provider, DDS Social History Tobacco [...] on filedocumented in this encounter Care Teams Weave Defect Charting Clerk Relationship Specialty Start Date End Date Vanessa Foy MD [address] [place] [address] PCP - General Family Medicine 02/26/19 documented as of this encounter
--- OUTSIDE RECORDS SUMMARY | 2024-07-09 12:47 | XMS_ITS | Clinical Summary ---
Author Organization [facility], Address [address] [place] [address] [place] [address] Phone Care Team Providers Care Interface Control Officer Name Role Phone Twyla Joseph MD Primary Care Provider [phone] Allergies No known active allergies Medications docusate sodium (COLACE) 100 MG capsule 0 Active senna (SENOKOT) 8.6 MG tablet TOME DOS TABLETAS POR V A ORAL TODOS LOS D CUANDO SEA NECESARIO FOR CONSTIPATION 0 Active GAS RELIEF 125 MG capsule TOME DE 1 A 2 C PSULAS POR V A ORAL DESPU S DE LAS COMIDAS AND AL ACOSTARSE MAX 4 PILLS A DAY 0 Active Acetaminophen Extra Strength 500 MG tablet TAKE 1 TABLET BY ORAL ROUTE EVERY6 8 HOURS NEEDED NOT TO EXCEED 4 TABLETS PER 24HRS 0 Active insulin glargine (LANTUS) 100 UNIT/ML injection Inject under the skin every night Active ergocalciferol 1.25 MG (34576 UT) capsule Take 1 capsule (50,000 Units total) by mouth 1 (one) time per week 12 capsule 3 2 Active atorvastatin (LIPITOR) 40 MG tablet TOME ZAYNAB TABLETA TODOS LOS D 3 Active lisinopril 40 MG tablet TOME ZAYNAB TABLETA TODOS LOS D EN SEAN PETERSEN 3 Active Melatonin 5 MG tablet TOME ZAYNAB TABLETA POR V A ORAL TODOS LOS D AL ACOSTARSE 3 Active metFORMIN (GLUCOPHAGE) 500 MG tablet TOME ZAYNAB TABLETA (500 MG) POR V A ORAL CON EL DESAYUNO AND WITH EVENING MEAL 3 Active pantoprazole (PROTONIX) 40 MG EC tablet TOME ZAYNAB TABLETA TODOS LOS D 3 Active terazosin (HYTRIN) 10 MG capsule TOME 1 C PSULA POR V A ORAL TODOS LOS D AL ACOSTARSE 2 Active tolterodine LA (DETROL LA) 4 MG 24 hr capsule TOME 1 C PSULA POR V A ORAL TODOS LOS D 3 Active traMADol (ULTRAM) 50 MG tablet TOME ZAYNAB TABLETA POR V A ORAL CADA SEIS HORAS CUANDO SEA NECESARIO PARA EL DOLOR 3 Active ferrous sulfate 325 (65 Fe) MG EC tablet Do not crush, chew, or split. 180 tablet 3 5 Active Active Problems Problem Noted Date Diagnosed Date Type 2 diabetes mellitus without complication Iron deficiency 06/13/2021 Essential (primary) hypertension 09/14/2020 Renal disorder due to type 2 diabetes mellitus 0 09/10/2019 Chronic kidney disease stage 2 09/09/2019 Resolved Problems Problem Noted Date Diagnosed Date Resolved Date Hypertensive chronic kidney disease with stage 1 through stage 4 chronic kidney disease, or unspecified chronic kidney disease 09/10/2019 09/14/2020 Hydronephrosis 09/09/2019 09/14/2020 Encounters Date Type Department Care Team Description 05/19/2024 Refill [facility] [address] [place] [phone] Analia Jimenez MA from Last 3 Months Family History Medical History Relation Comments Stroke Father Diabetes Mother Heart disease Mother Hypertension Mother Kidney disease Mother cousin Hypertension Sibling 1 brother Cancer Sibling 2 brother Relation Status Comments Father Alive Mother Sibling 1 Sibling 2 Social History Tobacco Use Types Packs/Day Years Used Date Smoking Tobacco: Never Tobacco Cessation:Counseling Given: Not Answered Alcohol Use Standard Drinks/Week Comments No 0 (1 standard drink = 0.6 oz pur e alcohol) Sex and Gender Information Value Date Recorded Sex Assigned at Not on file Legal Sex Male 4:37 PM EST Gender Identity Not on file Sexual Orientation Not on file Last Filed Vital Signs Vital Sign Reading Time Taken Comments Blood Pressure 118/78 08/07/2023 1:47 PM EDT Pulse 74 01/01/2019 12:00 PM EDT Temperature - - Respiratory Rate 16 01/01/2019 12:0 0 PM EDT Oxygen Saturation - - Inhaled Oxygen Concentration - - Weight 67.5 kg (148 lb 12.8 oz) 08/07/2023 1:47 PM EDT Height 149.9 cm (4' 11 ) 08/07/2023 1:47 PM EDT Body Mass Index 30.05 08/07/2023 1:47 PM EDT Plan of Treatment Upcoming Encounters Date Type Department Care Team (Late st Contact Info) Description 08/05/2024 1:30 PM EDT Office Visit [facility], [address] [place] [address] Hilario Cantu MD [address] [facility] [place] [phone] Health Maintenance Due Date Last Done Comments Hepatitis B Vaccine (1 of 3 - 19+ 3-dose series) 1989 08/17/1996, 04/03/1996, 02/04/1996 Colorectal Cancer Screening: Annual FOBT 2019 Colorectal Cancer Screening: Colonoscopy 2019 Colorectal Cancer Screening: Sigmoidoscopy 2019 Diabetes: Ophthalmology Exam 09/10/2019 Diabetes: Pedal Pulse Checked 09/10/2019 Diabetes: Sensory Foot Exam 09/10/2019 Diabetes: Visual Foot Exam 09/10/2019 Influenza Vaccine (#1) 2023 4, 01/26/2020, 04/14/2019, Additional history exists Diabetes: Hemoglobin A1C 07/06/2024 024, 07/04/2023, 06/18/2022, Additional history exists Pneumococcal Vaccine: Pediat rics (0 to 5 Years) and At-Risk Patients (6 to 64 Years) Completed 07/04/2023 Procedures Procedure Name Priority Date/Time Associated Diagnosis Comments HEMOGLOBIN A1C Routine 06/18/2022 3:07 PM EST from Last 3 Months or Most Recently Relevant to Health Maintenance Results * (ABNORMAL) Hemoglobin A1c (06/18/2022 3:07 PM EST) Hemoglobin A1C 8.6(H) (4.0-5.6) % [facility] Comment: MONITORING: In known diabetic patients, hemoglobin A1c targets should be discussed with health care provider. DIAGNOSTIC USE: ??The [place] Diabetes Association (ADA) and the World Health Organization (WHO) recommend the use of HbA1c to diagnose diabetes using a threshold of 6.5%. Patients who have an HbA1c between 5.7% and 6.4% are considered at increased risk for developing diabetes in the future. CAUTION: Falsely low HbA1c results may be observed in patients with hemolytic anemia, homozygous forms of abnormal hemoglobin (e.g. SS, CC, SC), , recent blood loss or hemoglobin F greater than 7%. Fructosamine may be used as an alternate test in these cases. REFERENCE: ADA: Standards of Medical Care in Diabetes 2020, The Journal of Clinical and Applied Research and Education Volume 43, Supplement 1 Testing performed or reported by [facility], a Service of [facility], [address] [place] [address] Wendy Corley MD, Keel Press Operator [facility]# [id number] 06/18/2022 3:07 PM EST 06/18/2022 3:10 PM EST us [facility] BLOOD ORDERABLES Final Re sult [facility] from Last 3 Months or Most Recently Relevant to Health Maintenance [place] [address] [place] [address] CARE DUAL SNP ([id number]) DIOR BOLANOS [id number] Care Teams Interface Control Officer Relationship Specialty Start Date End Date Twyla Joseph MD [address] [place] [id number] PCP - General Internal Medicine 09/09/20
--- OUTSIDE RECORDS SUMMARY | 2024-07-09 12:47 | XMS_ITS | Encounter Summary ---
Author Organization [employer] Address 75 [facility] 7t [place] [address] Care Team Providers Care Equipment Sales Specialist Name Role Phone Vanessa Foy MD Primary Care Provide r Encounter Details Date Type Department Care Team (Late st Contact Info) Description 12/21/2022 Orders Only [facility] CHC MED & PEDS [address] [place] [address] Ya Rice LPN Social History Tobacco Use [...] documented as of this encounter Care Teams Equipment Sales Specialist Relationship Specialty Start Date End Date Vanessa Foy MD [address] [place] [address] PCP - General Family Medicine 02/26/19 documented as of this encounter
--- OUTSIDE RECORDS SUMMARY | 2024-07-09 12:47 | XMS_ITS | Encounter Summary ---
Author Organization [employer] [facility] Address [address] [facility] [address]t [place] [address] Care Team Providers Care Tape Folding Machine Operator Name Role Phone Vanessa Foy MD Primary Care Provide r Reason for Visit * Reason Comments Med Refill Encounter Details Date Type Department Care Team (Late st Contact Info) Description 12/21/2022 Refill [facility] MEDICINE [address] [place], [place] [phone] Vanessa Foy MD [address] [place], [place] [phone] Social History Tobacco Use Types Packs/Day Years [...] documented as of this encounter Care Teams Tape Folding Machine Operator Relationship Specialty Start Date End Date Vanessa Foy MD [address] [place] [address] PCP - General Family Medicine 02/26/19 documented as of this encounter
--- OUTSIDE RECORDS SUMMARY | 2024-07-09 12:47 | XMS_ITS | Clinical Summary ---
Author Organization [address] [place] [address] Address [address] [place] [address] Phone Care Team Providers Care Metal Grader Name Role Phone Vanessa Foy MD Primary Care Provide r Allergies No known active allergies Medications acetaminophen (TYLENOL) 500 mg tablet Take 1 tablet (500 mg total) by mouth every 6 (six) hours if needed. Active FREESTYLE LANCETS MISC by Not Applicable route. Active glucose blood test strip glucose blood test strips (ASCENSIA AUTODISC ,ONE TOUCH ULTRA TEST ) strip 1 Strip by In Vitro route as needed. Active amLODIPine-lalo rvastatin (CADUET) 2.5-20 mg per tablet Take 1 tablet by mouth 1 (one) time each day. Active atorvastatin (LIPITOR) 40 mg tablet Take 1 tablet (40 mg total) by mouth 1 (one) time each day. Active lisinopril (PRINIVIL,ZEST RIL) 40 mg tablet Take 1 tablet (40 mg total) by mouth 1 (one) time each day. Active melatonin 2.5 mg tablet,chewabl e Chew. Active pantoprazole (PROTONIX) 40 mg EC tablet Take 1 tablet (40 mg total) by mouth 1 (one) time each day. Active senna (SENOKOT) 8.6 mg tablet Take 1 tablet (8.6 mg total) by mouth 1 (one) time each day. Active tolterodine LA (DETROL LA) 4 mg 24 hr capsule Take 1 capsule (4 mg total) by mouth 1 (one) time each day. Do not crush, chew, or split. Active carvediloL (COREG) 6.25 mg tablet Take by mouth 2 (two) times a day with meals. Active amLODIPine (NORVASC) 2.5 mg tablet Take 1 tablet (2.5 mg total) by mouth 2 (two) times a day. Active ferrous gluconate (FERGON) 324 mg (38 mg iron) tablet Take 1 tablet (324 mg total) by mouth 1 (one) time each day. Active CHOLECALCIFERO L, VITAMIN D3, ORAL Take by mouth. 025 Discontinued insulin glargine,hum.r ec.anlog (LANTUS U-100 INSULIN SUBQ) Inject under the skin. 025 Discontinued carbamide peroxide (Ear Drops, carbamide peroxide,) 6.5 % otic solution 5 drops 2 (two) times a day. Tilt head so ear to be treated points towards the ceiling. Hold medication in ear using part of a cotton ball. 025 Discontinued clotrimazole (LOTRIMIN) 1 % cream Apply topically 2 (two) times a day. 025 Discontinued metFORMIN (GLUCOPHAGE) 500 mg tablet Take 1 tablet (500 mg total) by mouth 2 (two) times a day with meals. 025 Discontinued Active Problems Problem Noted Date Diagnosed Date Cubital tunnel syndrome, left 06/29/2024 Carpal tunnel syndrome on left 05/21/2024 Chronic kidney disease 03/10/2024 Hypertension 03/10/2024 Lower leg pain 03/10/2024 Overview (03/10/2024): right lower Intellectual disability 03/10/2024 Idiopathic scoliosis and kyphoscoliosis 03/10/20 24 Umbilical hernia 03/10/2024 Vitamin D deficiency 03/10/2024 Right inguinal hernia 03/05/2019 Encounters Date Type Department Care Team Description 06/29/2024 10:30 AM EDT Consult Orthopedic Surgery - [place] [facility] [address] [place] [phone] Livier Fulton MD Carpal tunnel syndrome on left (Primary Dx); Cubital tunnel syndrome, left 06/24/2024 10:45 AM EDT Consult Orthopedic Surgery [facility] 250 [address] [facility] [address] [place] [phone] Rivas Davis DPM Dermatophytosis of nail (Primary Dx); Pain in toe of right foot; Pain in toe of left foot; Diabetic mononeuropathy simplex (CMS/HCC); Hammer toe of left foot; Acquired hammer toe of right foot 05/21/2024 Telephone Orthopedic Surgery - [address] [phone] Livier Fulton MD Surgery from Last 3 Months Surgical History Surgery Date Site/Laterality Comments OTHER SURGICAL HISTORY PROCEDURE: ---- OTHER ----; COMMENT: surgery in private area OTHER SURGICAL HISTORY PROCEDURE: [place] RPR 1ST INGUN HRNA AGE 5 YRS/> REDUCIBLE HERNIA REPAIR TRANSURETHRAL RESECTION OF PROSTATE Medical History Medical History Date Comments Umbilical hernia DX:Umbilical he rnia Mental retardation DX:Mental ret ardation Scoliosis (and kyphoscoliosis), idiopathic DX:Scoliosis (and kyphoscoliosis), idiopathic Lower leg pain DX:Lower leg maddie n; COMMENT: right lower Vitamin D deficiency DX:Vitamin D deficiency Chronic kidney disease DX:Chroni c kidney disease Hypertension DX:Hypertension Umbilical hernia DX:Umbilical he rnia Hyperlipidemia GERD (gastroesophageal reflux disease) Diabetes mellitus (CMS/HCC) Cognitive deficits Family History Medical History Relation Name Comments Diabetes Daughter Hypertension Daughter Heart attack Father Arthritis Mother Relation Name Status Comments Daughter Father Mother Alive Social History Tobacco Use Types Packs/Day Years Used Date Smoking Tobacco: Never Smokeless Tobacco: Never Alcohol Use Standard Drinks/Week Comments No 0 (1 standard drink = 0.6 oz pur e alcohol) Sex and Gender Information Value Date Recorded Sex Assigned at Not on file Legal Sex Male 5:05 AM EST Gender Identity Not on file Sexual Orientation Not on file Obstetrics History Last Filed Vital Signs Vital Sign Reading Time Taken Comments Blood Pressure 135/88 06/29/2024 10:37 AM EDT Pulse 91 06/29/2024 10:37 AM EDT Temperature 37.1 ??C (98.7 ??F) 06/29/2024 10:37 AM E DT Respiratory Rate - - Oxygen Saturation - - Inhaled Oxygen Concentration - - Weight 65.8 kg (145 lb) 07/09/2024 12:00 PM EDT Height 160 cm (5' 2.99 ) 07/09/2024 12:00 PM EDT Body Mass Index 25.69 07/09/2024 12:00 PM EDT Plan of Treatment Upcoming Encounters Date Type Department Care Team (Late st Contact Info) Description 07/16/2024 1:30 PM EDT Hospital Encounter [facility] Main OR [address] [place] [phone] Livier Fulton MD [address] [phone] 07/16/2024 1:30 PM EDT - 07/16/2024 3:30 PM EDT Surgery [facility] Main OR [address] [place] [phone] Livier Fulton MD [address] [phone] OPEN RELEASE LEFT CARPAL TUNNEL, left cubital tunnel release [[id number] (CPT??)] 07/27/2024 11:00 AM EDT Office Visit Orthopedic Surgery [facility] [address] [phone] Brianna Blandon PA [address] [phone] 09/24/2024 10:30 AM EDT Office Visit Orthopedic [facility] [address] [phone] Rivas Davis DPM [address] [phone] Scheduled Procedures Name Priority Associated Diagnoses Date/Ti me RELEASE CARPAL TUNNEL Carpal tunnel syndrome on left 07/16/2024 1:30 PM EDT DECOMPRESSION ULNAR NERVE Carpal tunnel syndrome on left 07/16/2024 1:30 PM EDT Health Maintenance Due Date Last Done Comments Diabetes: Annual Foot Exam 1980 Diabetes: Annual Retina Eye Exam 1980 Diabetes: Annual GFR (Glomerular Filtration Rate) 06/16/2023 06/15/2022 HIV Screening 11/12/2023 Hepatitis C Screening 11/12/2023 Hypertension/CHF/CAD Annual BMP Blood Test 11/12/2023 06/15/2022 Medicare Annual Wellness Visit 11/12/2023 Social Influencers of Health Screening 11/12/2023 COVID-19 Vaccine ( season) 2023 04/21/2021, 08/25/2020, 07/28/2020 Influenza Vaccine (#1) 2023 , 01/26/2020, 04/14/2019, Additional history exists Diabetes: Annual Urine Albumin-Creatinine Ratio (uACR) 06/15/2024 Diabetes: Blood Sugar Control Test (HGBA1C) 10/06/2024 04/07/2024, 08/12/2023, 06/18/2022 Depression Screening 10/07/2024 10/08/2023 Cholesterol Screening (Lipid Panel) 08/11/2028 08/12/2023 DTaP,Tdap,and Td Vaccines (8 - Td or Tdap) 11/15/2032 11/15/2022, 05/13/2012, 02/20/2006, Additional history exists Colorectal Cancer Screening: Colonoscopy 09/13/2033 09/14/2023 IPV Vaccines Completed 12/03/1983, 10/1976, 05/08/1972, Additional history exists MMR Vaccines Aged Out 01/17/1996 No longer eligi ble based on patient's age to complete this topic Hepatitis B Vaccines Completed 08/17/1996, 04/03/1996, 02/04/1996 Zoster Vaccines Completed 04/23/2023, 11/22/2022 Pneumococcal Vaccine: 50+ Years Completed 07/04/2023 Pneumococcal Vaccine: Pediatrics (0 to 5 Years) and At-Risk Patients (6 to 64 Years) Completed 07/04/2023 HIB Vaccines Aged Out No longer eligi ble based on patient's age to complete this topic HPV Vaccines Aged Out No longer eligi ble based on patient's age to complete this topic Hepatitis A Vaccines Aged Out No long er eligible based on patient's age to complete this topic Meningococcal ACWY Vaccine Aged Out N o longer eligible based on patient's age to complete this topic Meningococcal B Vacine Aged Out No lo nger eligible based on patient's age to complete this topic RSV Immunization Patients Under 20 months Aged Out No longer eligible based on patient's age to complete this topic Varicella Vaccines Aged Out No longer eligible based on patient's age to complete this topic Procedures Procedure Name Priority Date/Time Associated Diagnosis Comments COLONOSCOPY Routine 09/14/2023 HEMOGLOBIN A1C Routine 08/12/2023 LIPID PANEL Routine 08/12/2023 ANNUAL BMP BLOOD TEST Routine 06/15/2022 from Last 3 Months or Most Recently Relevant to Health Maintenance Results * Colonoscopy (09/14/2023) Colonoscopy No Interpretation , Abstracted Anatomical Region Laterality Modality Other [facility] Provider HEALTH MAINTENANCE Final Result * Hemoglobin A1c (08/12/2023) Pathologist [facility] Hemoglobin A1C 0.0 % Comment:Outside System Blood Venous blood specimen / Unknown Result [facility] Provider LAB BLOOD ORDERABLES Rebecca l Result * Lipid panel (08/12/2023) Pathologist [facility] Triglycerides 0 mg/dL Comment:Outside System Cholesterol 0 mg/dL Comment:Outside System HDL 0 mg/dL Comment:Outside System LDL Cholesterol 0 mg/dL Comment:Outside System Blood Venous blood specimen / Unknown Result [facility] Provider LAB BLOOD ORDERABLES Rebecca l Result * Annual BMP Blood Test (06/15/2022) Annual BMP Blood Test Abstracted [facility] Provider HEALTH MAINTENANCE Final Result from Last 3 Months or Most Recently Relevant to Health Maintenance Insurance [facility] MEDIC[facility] Member Subscriber Plan / Payer (Ef fective 2017-Present) Name:Roshan Beach Relation to Subscriber:Self Name:Roshan Beach Payer ID:[id number] Group ID:[id number] Type:Not on file Address: [place] [phone] Advance Directives Documents on File Type Date Recorded Patient Chimney Builder Helper Expl [facility] Care Decision (hx) 03/25/2019 AD GITA DIRECTIVE Care Teams Metal Grader Relationship Specialty Start Date End Date Vanessa Foy MD [address] [place] [phone] PCP - General Internal Medicine 11/14/18
--- OUTSIDE RECORDS SUMMARY | 2024-07-09 12:47 | XMS_ITS | Encounter Summary ---
Author Organization [employer] [facility] Address [address] [facility] [address] [place] [address] Care Team Providers Care Java Developer Analyst Name Role Phone Vanessa Foy MD Primary Care Provide r Reason for Visit * Reason Comments Med Refill Encounter Details Date Type Department Care Team (Late st Contact Info) Description 12/21/2022 Refill [facility] [address] [place], [place] [phone] Deric Rivas MD [address] [place], [place] [phone] Gastroesophageal reflux disease without esophagitis Social History [...] documented as of this encounter Care Teams Java Developer Analyst Relationship Specialty Start Date End Date Vanessa Foy MD [address] [place], [place] [phone] PCP - General Family Medicine 02/26/19 documented as of this encounter
--- OUTSIDE RECORDS SUMMARY | 2024-07-09 12:47 | XMS_ITS | Data Portability ---
Author Organization [employer] Address [address] [place] [phone] Care Team Providers Care Battalion Fire Chief Name Role Phone [facility] Referring Provider [facility] Referring Provider Assessment Encounter Date Assessment Date Assessment LastModified by Organization Details LastModified Time 09/22/2021 09/22/2021 I have reviewed and agree with the assessment and plan as documented by the external auditor. I provided real-time medical direction for this encounter and was immediately available to provide additional phone-based assistance as needed. 51M with redness to right leg x 1 week. Similar episode last month that improved with small amounts of glucocorticoid cream. Today, Pt with mild rash to the area, appears similar to contact dermatitis. Pt has been using triamcinoclone with good improvement. Pt without fever, no acute distress noted. No concerns for infectious process. Plan: patient and caregiver advised to continue with triamcinoclone and to follow up with care team. Red flags discussed. paysola Not available 09/22/2021 11:15:14 Plan of Treatment Reminders Order Date Submit Date Provider Last Modified By Organization Details Last Modified Time Details Appointments None record ed. Lab None record ed. Referral None record ed. Procedures None record ed. Surgeries None record ed. Imaging None record ed. Medication Orders None record ed. Patient TargetsNo targets recorded. Patient InstructionsNo instructions recorded. Reason for Referral None Reported. Medical Equipment None Reported. Medications Name Sig Start Date Stop Date Status Note LastModified by Organization Details LastModified Time terazosin 5 mg capsule TOME 1 C PSULA POR V A ORAL TODOS LOS D active Not Available Not Available No t Available atorvastatin 40 mg tablet TOME ZAYNAB TABLETA TODOS LOS D active Not Available Not Available No t Available tolterodine ER 4 mg capsule,exte nded release 24 hr active Not Available Not Available Not Available senna 8.6 mg tablet TOME DOS TABLETAS POR V A ORAL TODOS LOS D CUANDO SEA NECESARIO FOR CONSTIPATIO N active Not Available Not Available No t Available FreeStyle Lancets 28 gauge USE 1 LANCET BY TO SKIN ROUTE 3 TIMES EVERY DAY active Not Available Not Available No t Available metformin 850 mg tablet TOME ZAYNAB TABLETA DOS VECES AL D A WITH MORNING AND EVENING MEALS active Not Available Not Available No t Available peg-electrol yte solution 420 gram oral solution MIX AND TAKE BY MOUTH DIRECTED BY INSTRUCTION S FROM GI active Not Available Not Available No t Available acetaminophe n 500 mg tablet TOME DOS TABLETAS POR V A ORAL CADA OCHO HORAS CUANDO SEA NECESARIO. MAX 8TABS/24HRS active Not Available Not Available Not Available amoxicillin 875 mg tablet TOME ZAYNAB TABLETA CADA 12 HORAS active Not Available Not Available No t Available pantoprazole 40 mg tablet,delay ed release TOME ZAYNAB TABLETA TODOS LOS D active Not Available Not Available No t Available triamcinolon e acetonide 0.1 % topical ointment APPLY TOPICALLY TO AFFECTED AREA TWICE A DAY X7 DAYS active Not Available Not Available No t Available lisinopril 10 mg tablet TOME ZAYNAB TABLETA TODOS LOS D active Not Available Not Available No t Available omeprazole 20 mg capsule,chari yed release TAKE 1 CAPSULE BY MOUTH DAILY 30 MINUTES BEFORE BREAKFAST active Not Available Not Available No t Available lisinopril 5 mg tablet TOME ZAYNAB TABLETA TODOS LOS D active Not Available Not Available No t Available ergocalcifer ol (vitamin D2) 1,250 mcg (50,000 unit) capsule TOME 1 C PSULA (50,000 UNITS TOTAL) POR V A ORAL ONCE WEEKLY active Not Available Not Available Not Available ferrous sulfate 325 mg (65 mg iron) tablet,delay ed release TOME ZAYNAB TABLETA DOS VECES AL D A active Not Available Not Available No t Available lisinopril 40 mg tablet TOME ZAYNAB TABLETA TODOS LOS D active Not Available Not Available No t Available terazosin 10 mg capsule active Not Available Not Available N ot Available dicyclomine 10 mg capsule TAKE 1 CAPSULE BY MOUTH FOUR TIMES A DAY NEEDED FOR SEVERE PAIN active Not Available Not Available No t Available Murine Ear 6.5 % drops APLIQUE 5 GOTAS INTO AFFECTED EAR DOS VECES AL D A active Not Available Not Available No t Available naproxen 500 mg tablet TAKE 1 TABLET BY MOUTH EVERY 8 HOURS WITH FOOD active Not Available Not Available No t Available diazepam 5 mg tablet TAKE 1 TABLET BY MOUTH 1 HOUR BEFORE APPOINTMENT active Not Available Not Available Not Available amoxicillin 500 mg-potassium clavulanate 125 mg tablet TOME ZAYNAB TABLETA CADA OCHO HORAS active Not Available Not Available No t Available ciprofloxaci n 0.3 %-dexamethas one 0.1 % ear drops,suspen dave APLIQUE 4 GOTAS INTO AFFECTED EAR DOS VECES AL D A POR 7 D active Not Available Not Available No t Available FreeStyle Lite Strips CHECK BY FINGERSTICK ROUTE 3 TIMES EVERY DAY active Not Available Not Available No t Available melatonin 5 mg tablet TAKE 1 TABLET BY MOUTH AT BEDTIME active Not Available Not Available No t Available melatonin 5 mg capsule TOME 1 C PSULA POR V A ORAL TODOS LOS D active Not Available Not Available No t Available melatonin 10 mg capsule TOME 1 C PSULA POR V A ORAL AL ACOSTARSE active Not Available Not Available No t Available Vitals Date Recorded Respiratory rate Oxygen saturation Oxygen saturation in Arterial blood by Pulse oximetry Body temperature Heart rate Systolic blood pressure Diastolic blood pressure Provider Name and Address Organization Details Last Updated DateTime 2 20 /min 98 % 98 % 98.8 [degF] 100 /min 144 mm[Hg] 9 mm[Hg] Not Available [facility] - production 2 11:08:59 Social History None recorded. Functional Status None recorded. Mental Status None recorded. Family History Nothing Reported. Medical History No medical history recorded. Past Encounters Encounter ID Performer Location Encounter Start Date Encounter Closed Date Diagnosis/Indication Diagnosis SNOMED-CT Code Diagnosis ICD10 Code Diagnosis Note [id number] Lisa Knapp MD Main - [facility] [address] [place] [phone] 09/22/2021 11:08:57 12/20/2021 12:32:31 Contact dermatitis 56477730 L25.9 Health Concerns Section Related Observation LastModified by Organization Detai ls LastModified Time None Recorded Concern Status LastModified by Organization Details LastModified Time None Recorded Advance Directives Directive None Recorded Payers Encounter Date Sequence Insurance Name Policy Number Policy Hdez Covered Member ID Hdez Member ID Guarantor Name 09/22/2021 1 [facility] - DOS PRIOR TO 2022 - DUAL ELIGIBLE (MEDICARE REPLACEMENT/ADV ANTAGE - HMO) Roshan Beach [id number] Roshan Beach Notes Date Note Type Note Provider Name and Address Organization Details Recorded Time 09/22/2021 text/html HPI: Mild Retardation lives with Mom. History of CKD. Sister reports patient with swelling and redness of BLE with pain worsening. Blood sugars and BP running high but numbers not available. .................. .................. .................. .................. .................. .................. .................. ............... [facility] Nursing Assessment: Comments: Request reviewed, no additional information needed by CRC to process visit. Lisa Knapp MD [address] [facility],[address], [place], [phone], VERONICA - EULA SWANSON 09/22/2021 11:16:07
--- OUTSIDE RECORDS SUMMARY | 2024-07-09 12:47 | XMS_ITS | Encounter Summary ---
Author Organization [employer] Address [address] [facility] [address] [place] [address] Care Team Providers Care Blister Packing Machine Tender Name Role Phone Vanessa Foy MD Primary Care Provide r Reason for Visit * Reason Comments Med Refill Encounter Details Date Type Department Care Team ([facility] st Contact Info) Description 12/21/2022 Refill [facility] [address] [place], [place] [phone] Brittnee Gordillo MD [address] [place] [address] [phone] Type 2 diabetes mellitus without complication, without long-term current use of insulin (CMS/HCC) Social History Tobacco Use Types Packs/Day Years [...] without long-term current use of insulin (CMS/HCC) documented in this encounter Additional Health Concerns Assessment Noted Time PHQ-9 Depression Total Score: 0 08/31/19 23 11:44 AM EDT documented as of this encounter Care Teams Blister Packing Machine Tender Relationship Specialty Start Date End Date Vanessa Foy MD [address] [place] [address] PCP - General Family Medicine 02/26/19 documented as of this encounter
== END 2024-07-09 11:21 | disposition home or self-care (01) ==
LOC: HO.HUSH 10:05
PROVIDERS: PCP Internal Medicine; Visit Provider Urology
DX: Z13.9 Encounter for screening, unspecified (principal)

== ENCOUNTER → 2024-07-09 10:04 | Outpatient (BNVA) | payer OTHER, SELFPAY | PROVIDERS: PCP Internal Medicine; Visit Provider Urology | DX: N32.0 Bladder-neck obstruction (principal); R39.15 Urgency of urination; R35.1 Nocturia | CPT/HCPCS: 81003; 99212 ==

== ENCOUNTER 2024-08-26 10:47 | Outpatient (REF) | payer OTHER, SELFPAY ==
--- OUTSIDE RECORDS SUMMARY | 2024-08-26 11:53 | XMS_ITS | Clinical Summary ---
Author Organization [employer] Address 75 [facility] 7t [place] [address] Care Team Providers Care Welding Foreman Name Role Phone Vanessa Foy MD Primary [...] 24 Active Blood Glucose Monitoring Suppl (FreeStyle [place] Lite) w/Device kitIndications:Ty pe 2 diabetes mellitus with hyperglycemia, without long-term current use of insulin ([facility]) Use to test blood sugar 3 times daily 1 kit 11/25/19 24 Active lidocaine (Lidoderm) 5 % patchIndications: Right hip pain Apply 1 patch topically Once per day. Remove & discard patch within 12 hours or as directed by MD. 30 patch 1 01/08/20 24 Active glucose blood (FREESTYLE LITE) test strip USE TO TEST BLOOD SUGAR THREE TIMES A DAY 100 strip 11 01/21/20 24 Active Diclofenac Sodium 1 % gelIndications:Bi lateral carpal tunnel syndrome APPLY 1 INCH TOPICALLY IF NEED IN MORNING AND AT BED (APPLY TWICE DAILY ON AFFECTED AREA IF NEEDED). 100 g 1 01/21/20 24 Active amLODIPine (Norvasc) 2.5 MG tabletIndications :Essential hypertension TAKE 2 TABLETS BY MOUTH EVERY MORNING 180 tablet 1 04/28/19 25 Active pantoprazole (ProtoNix) 40 MG EC tabletIndications :Gastroesophageal reflux disease without esophagitis TAKE 1 TABLET BY MOUTH EVERY MORNING. DO NOT CRUSH, CHEW, OR SPLIT. 90 tablet 06/25/19 25 Active FreeStyle lancets USE JESUS VECES AL RICHY 100 each 2 07/29/19 25 Active atorvastatin (Lipitor) 40 MG tabletIndications :Hyperlipidemia, unspecified hyperlipidemia type TOME 1 TABLETA POR VIA ORAL TODOS [place] 90 tablet 07/29/19 25 Active metFORMIN (Glucophage) 500 MG tabletIndications :Type 2 diabetes mellitus without complication, without long-term current use of insulin (CMS/HCC) TAKE 1 TABLET BY MOUTH TWICE A DAY WITH BREAKFAST AND EVENING MEAL 180 tablet 1 07/29/19 25 Active Senna-Time 8.6 MG tablet TOME DOS TABLETAS POR VIA ORAL TODOS [place] CUANDO SEA NECESARIO PARA ESTRENIMIENT O. 180 tablet 3 07/29/19 25 Active lisinopril 40 MG tabletIndications :HTN (hypertension), benign TOME 1 TABLETA POR VIA ORAL [place] EN LA [facility] 90 tablet 1 07/29/19 25 Active Senna-Time 8.6 MG tablet TOME DOS TABLETAS POR VIA ORAL TODOS [place] CUANDO SEA NECESARIO PARA ESTRENIMIENT O. 180 tablet 3 02/23/20 23 025 Discontinued metFORMIN (Glucophage) 500 MG tabletIndications :Type 2 diabetes mellitus without complication, without long-term current use of insulin (CMS/HCC) TAKE 1 TABLET BY MOUTH TWICE A DAY WITH BREAKFAST AND EVENING MEAL 180 tablet 1 01/21/20 24 025 Discontinued lisinopril 40 MG tabletIndications :HTN (hypertension), benign TAKE 1 TABLET BY MOUTH EVERY MORNING 90 tablet 1 01/21/20 24 025 Discontinued FreeStyle lancets 1 each by Other route 3 times daily. TEST BLOOD SUGAR 3 TIMES A DAY 100 each 2 03/04/20 24 025 Discontinued atorvastatin (Lipitor) 40 MG tabletIndications :Hyperlipidemia, unspecified hyperlipidemia type TAKE 1 TABLET BY MOUTH EVERY DAY 90 tablet 03/16/20 025 Discontinued Active Problems Problem Noted Date [...] Encounters Date Type Department Care Team Description 08/21/2024 Telephone [facility] [address] [place] [phone] Vanessa Foy MD Lab Orders 08/20/[address] [address] Vanessa Foy MD Lab Orders 08/18/[address] [address] Vanessa Foy MD [facility] (I informed Aristeo, the patient's emergency contact, that [facility] have been ordered, and he may come to the [facility] lab at his convenience. The test results have been requested by [facility]. She stated that she will take him to the lab this week.) 08/17/2024 Telephone [facility] [address] [place] [address] Yun Metzger RN Lab Orders 07/27/2024 Refill [facility] [address] [place] [address] Vanessa Foy MD Gastroesophageal reflux disease without esophagitis; Hyperlipidemia, unspecified hyperlipidemia type; Type 2 diabetes mellitus without complication, without long-term current use of insulin ([facility]); HTN (hypertension), benign 06/24/2024 Refill [facility] [address] [place] [address] Vanessa Foy MD Gastroesophageal reflux disease without esophagitis from Last 3 Months Immunizations Immunization Administration Dates Next Due DTP 05/08/1972,04/12/1971 Hep [...] 04/07/2024 9:26 AM EST Plan of Treatment Upcoming Encounters Date Type Department Care Team (Late st Contact Info) Description 10/29/2024 1:45 PM EDT Office Visit [facility] [address] [place] [address] Demetrice Davis, OD [address] [place] [address] Health Maintenance Due Date Last Done Comments CT Colonography 1970 FIT 1970 FOBT 1970 Sigmoidoscopy 1970 Diabetes: Foot Exam 1980 Eye Exam 1980 Hepatitis C Screening 1988 Colonoscopy 09/08/2021 09/08/2020 Colorectal Cancer Screening 09/15/2023 COVID-19 Vaccine ( season) 2023 04/21/2021, 08/25/2020, 07/28/2020 Influenza Vaccine (#1) 2023 , 01/26/2020, 04/14/2019, Additional history exists SDOH Screening 09/25/2024 09/26/2023 Diabetes: Hemoglobin A1C 10/06/2024 024, 10/08/2023, 08/12/2023, Additional history exists Depression Screening 10/07/2024 10/08/2023, 10/08/19 Alcohol/Substance Use Screening 01/07/2025 01/08/2024 Diabetes: Urine Protein Screening 01/07/2025 01/08/2024, 01/31/2021, 01/07/2020 Lipid Panel 01/07/2025 01/08/2024, 07/15, 04/22/2020, Additional history exists Tobacco Screening 04/07/2025 [...] hyperglycemia, without long-term current use of insulin ([facility]) LIPID PANEL WITH REFLEX TO DIRECT LDL Routine 01/08/2024 12:00 PM EDT Type 2 diabetes mellitus with hyperglycemia, without long-term current use of insulin ([facility]) LAB COLOGUARD?? COLON CANCER SCREEN Routine 09/14/2023 7:00 PM EDT Colon cancer screening COLONOSCOPY Routine 09/08/2020 [facility] HISTORICAL HIV AB/AG Routine 04/17/2019 8:52 AM EST from Last 3 Months or Most Recently Relevant to Health Maintenance Results * (ABNORMAL) POCT HGB A1C (04/07/2024 9:28 AM EST) Hemoglobin A1C 6.7(A) 4.0 - 6.0 % QC Media Lot # [id number] Lot# Expiration Date 467 Blood 04/07/2024 9:28 AM EST us Vanessa Barth MD POINT OF CARE TEST EN TER/EDIT ORDERABLES Final Result * Lipid Panel with Reflex to Direct LDL (01/08/2024 12:00 PM EDT) Triglycerides 90 <150 mg/dL [facility] Comment:Desirable Triglyceri de: less than 150 mg/dLBorderline High Triglyceride 150-199 mg/dLHigh Triglyceride: 200-499 mg/dLVery High Triglyceride: greater than or equal to 5OO mg/dL Cholesterol 139 <200 mg/dL [facility] Comment:Desirable Cholestero l: less than 200 mg/dLBorderline High Cholesterol: 200-239 mg/dLHigh Cholesterol: greater than 239 mg/dL LDL Cholesterol Calculated 67 <100 mg/dL [facility] Comment:Desirable LDL: less than 100 mg/dLNear Optimal/Above Optimal LDL: 110- 129 mg/dLBorderline High LDL: 130-159 mg/dLHigh LDL: 160-189 mg/dLVery High LDL: greater than or equal to 190 mg/dL HDL Cholesterol 54 >40 mg/dL [facility] Comment:Desirable HDL: great er than 40 mg/dL Note: This HDL assay may give artificially low results in patients with liver disease. Blood 01/08/2024 12:0 0 PM EDT 01/08/2024 1:20 PM EDT us Vanessa Barth MD LAB BLOOD ORDERABLES Final Result Performing Organization Address [facility] Co de Phone Number [facility] [address] [place] [address] [phone] * (ABNORMAL) Albumin, Random Urine W/Creatinine (01/08/2024 12:00 PM EDT) Creatinine, Urine 58.35 mg/dL [facility] Microalbumin Urine 60.0 mg/L [facility] Microalbum Creatinine Ratio Ur 102.8(H) <30 ug/mg cr [facility] Comment:Albumin/Creatinine R atio Reference Ranges: Normal: < 30 ug/mg creatinine Microalbuminuria: 30 - 300 ug/mg creatinineClinical Albuminuria: > 300 ug/mg creatinine Urine (Urine, Random) 01/08/2024 12:00 PM EDT 01/08/2024 1:19 PM EDT us Vanessa Barth MD LAB URINE ORDERABLES Final Result [facility] [address] [place] [phone] * Cologuard?? colon cancer screening (09/14/2023 7:00 PM EDT) Cologuard Result Negative Negative 09/20/19 5:52 AM EDT [facility] (CLIA #:[id number]) Comment: NEGATIVE TEST RESULT. A negative Cologuard [...] cancer. ??Following a negative Cologuard result, the [place] [employer] Society and U.S. Multi-Society Task Force screening guidelines recommend a Cologuard re-screening interval of 3 years. References: [place] [employer] Guideline for Colorectal Cancer Screening: https://www.cancer.org/cancer/bijge-wyulgs-sxicrf/bnsxvxlis-thuvalwqi-pdcmrct/ac s-rec ommendations.html.; Janes DK, Nina CR, Jenn FisherK, Colorectal Cancer Screening: Recommendations for Physicians and Patients from the U.S. Multi-Society Task Force on Colorectal Cancer Screening , Am J Gastroenterology 2017; 112:6211-5479. TEST DESCRIPTION: Composite algorithmic analysis of stool [...] (Kathya Shaw al, N Engl J Med 2014;370(14):9237-3060.) Cologuard may produce a false negative or false positive result (no colorectal cancer or precancerous polyp present at colonoscopy follow up). A negative Cologuard test result does not guarantee the absence of CRC or advanced adenoma (pre-cancer). The current Cologuard screening interval is every 3 years. ([place] [employer] Society and U.S. Multi-Society Task Force). Cologuard performance data in a 10,000 patient pivotal study using colonoscopy as the reference method can be accessed at the following location: www.basico.com/results. Additional description of the Cologuard test process, warnings and precautions can be found at www.[employer].com. Stool specimen (specimen) Rectal contents / Unknown 09/14/2023 7:00 PM EDT 09/17/2023 1:42 PM EDT us Vanessa Barht MD LAB MOLECULAR DIAGNOS TICS ORDERABLES Final Result [facility] (CLIA #:[id number]) [place] [address], [place] [phone] * Hm Colonoscopy (09/08/2020) Historical Provider HEALTH MAINTENANCE Final Result * HIV AB/AG (04/17/2019 8:52 AM EST) [facility] HIV AG/AB NONREACTIVE NR FOUNDATI ON [...] detection of this assay. ?? The [employer] Sampler Radioactive Waste HIV Ag/Ab Combo assay result and supplemental assay results should be interpreted in conjunction with the patient's clinical presentation, history and other laboratory results. ??If the results are inconsistent with clinical evidence, additional testing is suggested to confirm the result. 04/17/2019 8:52 AM EST Vanessa Barth MD HISTORICAL/NON ORDERA BLE LABS Final Result [facility] Anywhere [address] from Last 3 Months or Most Recently Relevant to Health Maintenance Insurance [id number] < 65 [place]O BOLANOS [id number] Advance Directives Documents on File Type Date Recorded Patient Center Aisle Cashier Expl anation HealthCare Proxy 03/04/2024 2:25 PM proxy Care Teams Welding Foreman Relationship Specialty Start Date End Date Vanessa Foy MD [address] [place] [address] PCP - General Family Medicine 02/26/19
--- OUTSIDE RECORDS SUMMARY | 2024-08-26 11:53 | XMS_ITS | Encounter Summary ---
Author Organization [employer] Address [address] [facility] 7t [place] [address] Care Team Providers Care Residential Manager Name Role Phone Vanessa Foy MD Primary Care Provide r Reason for Visit * Reason Onset Date Comments Lab Orders 08/21/2024 Encounter Details Date Type Department Care Team ([facility] st Contact Info) Description 08/21/2024 Telephone [facility] [address] [place], [place] [phone] Vanessa Foy MD [address] [place], [place] [phone] Lab Orders Social History Tobacco Use Types Packs/Day Years [...] AM EDT documented as of this encounter Miscellaneous Notes * Telephone Encounter - Yun Metzger RN - 08/21/2024 11:11 AM EDT Lab has been ordered 08/17/24 and pt.'s emergency contact was made aware TC returned to [place] and advised of this * Telephone Encounter - Gale Crenshaw - 08/21/2024 11:06 AM EDT Tc from [place] with Mary castaneda requesting a lab order for a TB test for pt. Please return call when ready [phone] documented in this encounter Plan of Treatment Upcoming Encounters Date Type Department Care Team (Late st Contact Info) Description 10/29/2024 1:45 PM EDT Office Visit [facility] OPTOMETRY [address] [place] [address] Demetrice Davis, OD [address] [place] [address] documented as of this encounter Visit Diagnoses Not on filedocumented in this encounter Additional Health Concerns Assessment Noted Time PHQ-9 Depression Total Score: 1 10/08/19 24 10:58 AM EDT documented as of this encounter Care Teams Residential Manager Relationship Specialty Start Date End Date Vanessa Foy MD [address] [place] [address] PCP - General Family Medicine 02/26/19 documented as of this encounter
--- OUTSIDE RECORDS SUMMARY | 2024-08-26 11:53 | XMS_ITS | Encounter Summary ---
Author Organization [employer] Address [address] [facility] 7t [place] [address] Care Team Providers Care Lighting Fixtures Decorator Name Role Phone Vanessa Foy MD Primary Care Provide r Reason for Visit * Reason Comments Med Refill Encounter Details Date Type Department Care Team ([facility] st Contact Info) Description 04/27/2024 Refill [facility] MED & PEDS [address] [place], [place] [phone] Vanessa Foy MD [address] [place] [address] Gastroesophageal reflux disease without esophagitis Social History [...] as of this encounter Plan of Treatment Upcoming Encounters Date Type Department Care Team (Late st Contact Info) Description 10/29/2024 1:45 PM EDT Office Visit [facility] OPTOMETRY [address] [place] [address] TarkaDemetrice, OD [address] [place] [address] documented as of this encounter Visit Diagnoses Diagnosis Gastroesophageal reflux disease without esophagitis Esophageal reflux documented in this encounter Additional Health Concerns Assessment Noted Time PHQ-9 Depression Total Score: 1 10/08/19 24 10:58 AM EDT documented as of this encounter Care Teams Lighting Fixtures Decorator Relationship Specialty Start Date End Date Vanessa Foy MD [address] [place] [phone] PCP - General Family Medicine 02/26/19 documented as of this encounter
--- OUTSIDE RECORDS SUMMARY | 2024-08-26 11:53 | XMS_ITS | Encounter Summary ---
Author Organization [employer] Address 75 [facility] 7t [place] [address] Care Team Providers Care Calculator Operator Name Role Phone Vanessa Foy MD Primary Care Provide r Encounter Details Date Type Department Care Team (Latest Contact Info) Description 06/02/2021 Abstract [facility] CONVERSIONS Dental, Provider, DDS Social History [...] Description 10/29/2024 1:45 PM EDT Office Visit [facility] OPTOMETRY [address] [place] [address] TarDemetrice garcia, OD [address] [place] [address] documented as of this encounter Visit Diagnoses Not on filedocumented in this encounter Care Teams Calculator Operator Relationship Specialty Start Date End Date Vanessa Foy MD [address] [place] [address] PCP - General Family Medicine 02/26/19 documented as of this encounter
--- OUTSIDE RECORDS SUMMARY | 2024-08-26 11:53 | XMS_ITS | Encounter Summary ---
Author Organization [employer] Address [address] [facility] 7t [place] [address] Care Team Providers Care Worship Director Name Role Phone Vanessa Foy MD Primary Care Provide r Reason for Visit * Reason Comments Med Refill Encounter Details Date Type Department Care Team (Late st Contact Info) Description 04/16/2023 Refill [facility] MED & PEDS [address] [place], [place] [phone] Vanessa Foy MD [address] [place] [address] Type 2 diabetes mellitus without complication, without long-term current use of insulin ([facility]) Social History Tobacco Use Types Packs/Day Years [...] Description 10/29/2024 1:45 PM EDT Office Visit [facility] OPTOMET[facility] [address] [place], [place] [phone] Demetrice Davis, OD [address] [place] [address] documented as of this encounter Visit Diagnoses Diagnosis Type 2 diabetes mellitus without complication, without long-term current use of insulin ([facility]) documented in this encounter Additional Health Concerns Assessment Noted Time PHQ-9 Depression Total Score: 0 08/31/19 23 11:44 AM EDT documented as of this encounter Care Teams Worship Director Relationship Specialty Start Date End Date Vanessa Foy MD [address] [place] [id number] PCP - General Family Medicine 02/26/19 documented as of this encounter
--- OUTSIDE RECORDS SUMMARY | 2024-08-26 11:53 | XMS_ITS | Encounter Summary ---
Author Organization [employer] Address [address] [facility] 7t [place] [address] Care Team Providers Care Heel Nail Rasper Name Role Phone Vanessa Foy MD Primary Care Provide r Reason for Visit * Reason Comments Med Refill Encounter Details Date Type Department Care Team (Late st Contact Info) Description 05/25/2024 Refill [facility] MED & PEDS [address] [place] [address] Vanessa Foy MD [address] [place] [address] Gastroesophageal reflux disease without esophagitis; Type 2 diabetes mellitus without complication, without long-term current use of insulin ([facility]); HTN (hypertension), benign Social History Tobacco Use [...] Description 10/29/2024 1:45 PM EDT Office Visit [facility] OPTOM[facility]RY [address] [place], [place] [phone] Demetrice Davis, OD [address] [place] [address] documented as of this encounter Visit Diagnoses Diagnosis Gastroesophageal reflux disease without esophagitis Esophageal reflux Type 2 diabetes mellitus without complication, without long-term current use of insulin ([facility]) HTN (hypertension), benign Essential hypertension, benign documented in this encounter Additional Health Concerns Assessment Noted Time PHQ-9 Depression Total Score: 1 10/08/19 24 10:58 AM EDT documented as of this encounter Care Teams Heel Nail Rasper Relationship Specialty Start Date End Date Vanessa Foy MD [address] [place] [address] PCP - General Family Medicine 02/26/19 documented as of this encounter
--- OUTSIDE RECORDS SUMMARY | 2024-08-26 11:53 | XMS_ITS | Encounter Summary ---
Author Organization [employer] Address 75 [facility] 7t [place] [address] Care Team Providers Care Direct Sales Representative Name Role Phone Vanessa Foy MD Primary Care Provide r Reason for Visit * Reason Comments Med Refill Encounter Details Date Type Department Care Team (Late st Contact Info) Description 09/13/2023 Refill [facility] MEDICINE [address] [place], [place] [phone] Jayda Zhang MD [address] [place], [place] [phone] Social History Tobacco Use Types Packs/Day Years [...] 10/29/2024 1:45 PM EDT Office Visit [facility] OPTOMETRY [address] [place] [address] TarkaDemetrice, OD [address] [place] [address] documented as of this encounter Visit Diagnoses Not on filedocumented in this encounter Additional Health Concerns Assessment Noted Time PHQ-9 Depression Total Score: 0 08/31/19 23 11:44 AM EDT documented as of this encounter Care Teams Direct Sales Representative Relationship Specialty Start Date End Date Vanessa Foy MD [address] [place] [address] PCP - General Family Medicine 02/26/19 documented as of this encounter
--- OUTSIDE RECORDS SUMMARY | 2024-08-26 11:53 | XMS_ITS | Encounter Summary ---
Author Organization [employer] Address 75 [facility] 7t [place] [address] Care Team Providers Care Sole Cutter Name Role Phone Vanessa Foy MD Primary Care Provide r Encounter Details Date Type Department Care Team (Late st Contact Info) Description 05/25/2024 Telephone [facility] [address] [place], [place] [phone] Vanessa Foy MD [address] [place], [place] [phone] Social History Tobacco Use Types Packs/Day Years [...] Description 10/29/2024 1:45 PM EDT Office Visit [facility] OPTOMETRY [address] [place] [address] Demetrice Davis, OD [address] [place] [address] documented as of this encounter Visit Diagnoses Not on filedocumented in this encounter Additional Health Concerns Assessment Noted Time PHQ-9 Depression Total Score: 1 10/08/19 24 10:58 AM EDT documented as of this encounter Care Teams Sole Cutter Relationship Specialty Start Date End Date Vanessa Foy MD [address] [place] [address] PCP - General Family Medicine 02/26/19 documented as of this encounter
--- OUTSIDE RECORDS SUMMARY | 2024-08-26 11:54 | XMS_ITS | Encounter Summary ---
Author Organization [employer] Address 75 [facility] 7t [place] [address] Care Team Providers Care Drug Abuse Worker Name Role Phone Vanessa Foy MD Primary Care Provide r Encounter Details Date Type Department Care Team (Latest Contact Info) Description 10/15/2018 Abstract [facility] CONVERSIONS Dental, Provider, DDS Social History [...] Description 10/29/2024 1:45 PM EDT Office Visit [facility] OPTOMETRY [address] [place] [address] TarDemetrice garcia, OD [address] [place] [address] documented as of this encounter Visit Diagnoses Not on filedocumented in this encounter Care Teams Drug Abuse Worker Relationship Specialty Start Date End Date Vanessa Foy MD [address] [place] [address] PCP - General Family Medicine 02/26/19 documented as of this encounter
--- OUTSIDE RECORDS SUMMARY | 2024-08-26 11:54 | XMS_ITS | Encounter Summary ---
Author Organization [employer] Address [address] [facility] 7t [place] [address] Care Team Providers Care Astronomy Teacher Name Role Phone Vanessa Foy MD Primary Care Provide r Reason for Visit * Reason Comments Med Refill Encounter Details Date Type Department Care Team (Late st Contact Info) Description 12/21/2022 Refill [facility] MEDICINE [address] [place], [place] [phone] Deric Rivas MD [address] [place], [place] [phone] Gastroesophageal reflux disease without esophagitis Social History [...] Description 10/29/2024 1:45 PM EDT Office Visit [facility] OPTOMETRY [address] [place], [place] [phone] Demetrice Davis, OD [address] [place] [address] documented as of this encounter Visit Diagnoses Diagnosis Gastroesophageal reflux disease without esophagitis Esophageal reflux documented in this encounter Additional Health Concerns Assessment Noted Time PHQ-9 Depression Total Score: 0 05/18/20 23 11:44 AM EDT documented as of this encounter Care Teams Astronomy Teacher Relationship Specialty Start Date End Date Vanessa Foy MD [address] [place] [address] PCP - General Family Medicine 02/26/19 documented as of this encounter
--- OUTSIDE RECORDS SUMMARY | 2024-08-26 11:54 | XMS_ITS | Encounter Summary ---
Author Organization [employer] Address 75 [facility] 7t [place] [address] Care Team Providers Care Detective Lieutenant Name Role Phone Vanessa Foy MD Primary Care Provide r Reason for Visit * Reason Comments Med Refill Encounter Details Date Type Department Care Team (Late st Contact Info) Description 12/21/2022 Refill [facility] MEDICINE [address] [place], [place] [phone] Vanessa Foy MD [address] [place] [address] Social History Tobacco Use Types Packs/Day Years [...] 10/29/2024 1:45 PM EDT Office Visit [facility] OPTOMETRY [address] [place], [place] [phone] Demetrice Davis, OD [address] [place] [address] documented as of this encounter Visit Diagnoses Not on filedocumented in this encounter Additional Health Concerns Assessment Noted Time PHQ-9 Depression Total Score: 0 05/18/20 23 11:44 AM EDT documented as of this encounter Care Teams Detective Lieutenant Relationship Specialty Start Date End Date Vanessa Foy MD [address] [place] [phone] PCP - General Family Medicine 02/26/19 documented as of this encounter
--- OUTSIDE RECORDS SUMMARY | 2024-08-26 11:54 | XMS_ITS | Clinical Summary ---
Author Organization [address] [place] [address] Address [address] [place] [address] Phone Care Team Providers Care Natural Gas Plant Technician Name Role Phone Vanessa Foy MD Primary Care Provide r Allergies No known active allergies Medications FREESTYLE LANCETS MISC by Not Applicable route. Active glucose blood test strip glucose blood test strips (ASCENSIA AUTODISC ,ONE TOUCH ULTRA TEST ) strip 1 Strip by In Vitro route as needed. Active atorvastatin (LIPITOR) 40 mg tablet Take 1 tablet (40 mg total) by mouth 1 (one) time each day. Active lisinopril (PRINIVIL,ZESTR IL) 40 mg tablet Take 1 tablet (40 mg total) by mouth 1 (one) time each day. Active melatonin 2.5 mg tablet,chewable Chew if needed. Active pantoprazole (PROTONIX) 40 mg EC tablet [...] mouth 1 (one) time each day. Active metFORMIN (GLUCOPHAGE) 500 mg tablet Take 1 tablet (500 mg total) by mouth 2 (two) times a day with meals. Active ibuprofen (ADVIL,MOTRIN) 600 mg tablet Take 1 tablet (600 mg total) by mouth every 8 (eight) hours if needed for moderate pain. 21 tablet 5 Active oxyCODONE (ROXICODONE) 5 mg immediate release tabletIndicatio ns:Cubital tunnel syndrome, left,Carpal tunnel syndrome on left Take 1 tablet (5 mg total) by mouth every 4 (four) hours if needed for severe pain. Max Daily Amount: 30 mg 10 tablet 5 Active acetaminophen (TYLENOL) 500 mg tablet Take 2 tablets (1,000 mg total) by mouth every 8 (eight) hours. 30 tablet 5 Active Active Problems Problem Noted Date Diagnosed Date Cubital tunnel syndrome, left 06/29/2024 Carpal tunnel syndrome on left 05/21/2024 Chronic kidney disease 03/10/2024 Hypertension 03/10/2024 Lower leg pain 03/10/2024 Overview (03/10/2024): right lower Intellectual disability 03/10/2024 Idiopathic scoliosis and kyphoscoliosis 03/10/20 24 Umbilical hernia 03/10/2024 Vitamin D deficiency 03/10/2024 Right inguinal hernia 03/05/2019 Encounters Date Type Department Care Team Description 07/27/2024 11:00 AM EDT Office Visit Orthopedic Surgery [address] [place] [phone] Brianna Blandon PA Surgery follow-up (Primary Dx) 07/16/2024 3:25 PM EDT Anesthesia Event [facility] OR [address] [place] [phone] Gary Andres DO Elliott, Barbara J, CRNA 07/16/2024 1:30 PM EDT - 07/16/2024 3:30 PM EDT Surgery [facility] OR [address] [place] [phone] Livier Fulton MD OPEN RELEASE LEFT CARPAL TUNNEL, left cubital tunnel release [[id number] (CPT??)] 07/16/2024 11:41 AM EDT - 07/16/2024 6:42 PM EDT Hospital Encounter [facility] Main OR [address] [place] [address] Livier Fulton MD Cubital tunnel syndrome, left (Primary Dx); Carpal tunnel syndrome on left Discharge Disposition: Home or Self Care 06/29/2024 10:30 AM EDT Consult Orthopedic Surgery [facility] 175 [facility] [address] [place] [phone] Livier Fulton MD Carpal tunnel syndrome on left (Primary Dx); Cubital tunnel syndrome, left 06/24/2024 10:45 AM EDT Consult Orthopedic Surgery [facility] 250 175 [facility] [address] [place] [phone] Rivas Davis, DPM Dermatophytosis of nail (Primary Dx); Pain in toe of right foot; Pain in toe of left foot; Diabetic mononeuropathy simplex (CMS/[facility] V24, [facility] V28); Hammer toe of left foot; Acquired hammer toe of right foot from Last 3 Months Surgical History Surgery Date Site/Laterality Comments OTHER SURGICAL HISTORY PROCEDURE: UT RPR 1ST INGUN HRNA AGE 5 YRS/> REDUCIBLE HERNIA REPAIR RIGHT INGUINAL TRANSURETHRAL RESECTION OF PROSTATE Medical History Medical [...] Hyperlipidemia GERD (gastroesophageal reflux disease) Diabetes mellitus (CMS/[facility] V 24, CMS/[facility] V28) Cognitive deficits Family History Medical History Relation [...] Value Date Recorded Sex Assigned at Male 07/16/2024 11:39 AM EDT Legal Sex Male 5:05 AM EST Gender Identity Male 07/16/2024 11:39 AM EDT Sexual Orientation Straight 07/16/2024 11 :39 AM EDT Obstetrics History Last Filed Vital Signs Vital Sign Reading Time Taken Comments Blood Pressure 125/87 07/16/2024 5:16 PM EDT Pulse 97 07/16/2024 5:16 PM EDT Temperature 36.8 ??C (98.2 ??F) 07/16/2024 5:16 PM ED T Respiratory Rate 20 07/16/2024 5:16 PM EDT Oxygen Saturation 96% 07/16/2024 5:16 PM EDT Inhaled Oxygen Concentration - - Weight 65.8 kg (145 lb) 07/27/2024 10:53 AM EDT Height 160 cm (5' 2.99 ) 07/27/2024 10:53 AM EDT Body Mass Index 25.69 07/27/2024 10:53 AM EDT Plan of Treatment Upcoming Encounters Date Type Department Care Team (Late st Contact Info) Description 09/08/2024 10:15 AM EDT Office Visit Orthopedic [facility] 175 [facility] 140 [place] [phone] Livier Fulton MD [address] [phone] 09/24/2024 10:30 AM EDT Office Visit Orthopedic [facility] [address] [phone] Rivas Davis DPM [address] [address] Health Maintenance Due Date Last Done Comments Diabetes: Annual Foot Exam 1980 Diabetes: Annual Retina Eye Exam 1980 HIV Screening 11/12/2023 Hepatitis C Screening 11/12/2023 Medicare Annual Wellness Visit 11/12/2023 Social Influencers of Health Screening 11/12/2023 COVID-19 Vaccine ( season) 2023 04/21/2021, 08/25/2020, 07/28/2020 Diabetes: Annual Urine Albumin-Creatinine Ratio (uACR) 06/15/2024 Diabetes: Blood Sugar Control Test (HGBA1C) 10/06/2024 04/07/2024, 08/12/2023, 06/18/2022 Depression Screening 10/07/2024 10/08/2023 Influenza Vaccine (Season Ended) 2024 04/23/2023, 01/26/2020, 04/14/2019, Additional history exists Diabetes: Annual GFR (Glomerular Filtration Rate) 01/07/2025 01/08/2024, 06/15/2022 Hypertension/CHF/CAD Annual BMP Blood Test 01/07/2025 01/08/2024, 06/15/2022 Cholesterol Screening (Lipid Panel) 08/11/2028 08/12/2023 DTaP,Tdap,and [...] age to complete this topic Meningococcal B Vaccine Aged Out No l onger eligible based on patient's age to complete this topic RSV Immunization Patients Under 20 months Aged Out No longer eligible based on patient's age to complete this topic Varicella Vaccines Aged Out No longer eligible based on patient's age to complete this topic Procedures Procedure Name Priority Date/Time Associated Diagnosis Comments POCT GLUCOSE BLOOD Routine 07/16/2024 4: 40 PM EDT TH AN LMA(NO CHARGE) Routine 07/16/2024 3:44 PM EDT UT NEUROPLASTY AND/OR TRANSPOSITION ULNAR NERVE AT ELBOW 07/16/2024 3:25 PM EDT Carpal tunnel syndrome on left UT NEUROPLASTY/TRANSPOSIT ION MEDIAN NERVE AT CARPAL TUNNEL 07/16/2024 3:25 PM EDT Carpal tunnel syndrome on left POCT GLUCOSE BLOOD Routine 07/16/2024 11 :51 AM EDT COLONOSCOPY Routine 09/14/2023 HEMOGLOBIN A1C Routine 08/12/2023 LIPID PANEL Routine 08/12/2023 ANNUAL BMP BLOOD TEST Routine 06/15/2022 from Last 3 Months or Most Recently Relevant to Health Maintenance Results * (ABNORMAL) POCT Glucose, blood (07/16/2024 4:40 PM EDT) Only the most recent of2 resultswithin the time period is included. Glucose POCT 115(H) 70 - 100 mg/dL 07/16/2024 4:40 PM EDT [facility] Blood Capillary blood specimen / Unknown 07/16/2024 4:40 PM EDT 07/16/2024 4:41 PM EDT us Livier Fulton MD LAB POINT OF CARE TE ST DOCKED DEVICE UNSOLICITED RESULTS Final Result [facility] [address] [place] [address], * TH AN LMA(NO CHARGE) (07/16/2024 3:44 PM EDT) Blayne Sutton CRNA - 07/16/2024 3:44 PM EDT Blayne Perera CRNA ? 07/16/2024 ??3:44 PM General Information and Staff Patient location during procedure: OR Performed by: Blayne Perera CRNA Authorized by: Gary Andres, DO ?? Intubation Urgency: elective Final Airway Details Number of attempts at approach: 1Final airway type: LMA Indications and Patient Condition Indications for airway management: anesthesia Sedation level: Yes Preoxygenated: yes Soft Tissue Damage: No Dentition Unchanged: Yes Gary Andres DO ANESTHESIA ORDERABLES Final Res ult * Colonoscopy (09/14/2023) [facility] Colonoscopy No Interpretation , Abstracted Anatomical Region Laterality Modality Other Historical Provider HEALTH MAINTENANCE Final Result * Hemoglobin A1c (08/12/2023) [facility] Hemoglobin A1C 0.0 % Comment:Outside System Blood Venous blood specimen / Unknown Result [facility] Historical Provider LAB BLOOD ORDERABLES Rebecca l Result * Lipid panel (08/12/2023) [facility] Triglycerides 0 mg/dL Comment:Outside System Cholesterol 0 mg/dL Comment:Outside System HDL 0 mg/dL Comment:Outside System LDL Cholesterol 0 mg/dL Comment:Outside System Blood Venous blood specimen / Unknown Result [facility] Historical Provider LAB BLOOD ORDERABLES Rebecca l Result * Annual BMP Blood Test (06/15/2022) Pathologist [facility] Annual BMP Blood Test Abstracted Result [facility] Historical Provider HEALTH MAINTENANCE Final Result from Last 3 Months or Most Recently Relevant to Health Maintenance [place] [address] [place] [address] MEDICARE Member Subscriber Plan / Payer (Ef fective 2017-Present) Name:Roshan Beach Relation to Subscriber:Self Name:Roshan Beach Payer ID:[id number] Group ID:[id number] Type:Not on file Address: [address] [place] [phone] Advance Directives Documents on File Type Date Recorded Patient Weapons System Instrument Mechanic Expl anation Health Care Decision (hx) 03/25/2019 AD PELAYO DIRECTIVE * Full Code - Default (Latest Code Status on File) Date Activated Date Inactivated Comments 07/16/2024 12:07 PM 07/16/2024 9:17 PM This is order is used when code status has not been discussed with the patient, or code status is otherwise unknown/unconfirmed To update the patient's code status, place a code status order. Do not modify or discontinue any currently active code status orders. Care Teams Natural Gas Plant Technician Relationship Specialty Start Date End Date Vanessa Foy MD [address] [place] [phone] PCP - General Internal Medicine 11/14/18
--- OUTSIDE RECORDS SUMMARY | 2024-08-26 11:54 | XMS_ITS | Data Portability ---
Author Organization [employer] [facility] Address [address] [place] [phone] Care Team Providers Care Brand Sales Manager Name Role Phone [facility] Referring Provider [facility] PRIMARY [facility]ARE Referring Provider [phone] Assessment Encounter Date Assessment Date Assessment LastModified by Organization Details LastModified Time 09/22/2021 09/22/2021 I have reviewed and agree with the assessment and plan as documented by the envelope folder. I provided real-time medical direction for this [...] /min 144 mm[Hg] 9 mm[Hg] Not Available [employer] - production 2 11:08:59 Social History None recorded. Functional Status None recorded. Mental Status None recorded. Family History Nothing Reported. Medical History No medical history recorded. Past Encounters Encounter ID Performer Location Encounter Start Date Encounter Closed Date Diagnosis/Indication Diagnosis SNOMED-CT Code Diagnosis ICD10 Code Diagnosis Note [id number] Lisa Knapp MD Main - [facility] [address] [place] [phone] 09/22/2021 11:08:57 12/20/2021 12:32:31 Contact dermatitis 16419265 L25.9 Health Concerns Section Related Observation LastModified by Organization Detai ls LastModified Time None Recorded Concern Status LastModified by Organization Details LastModified Time None Recorded [place] Directives Directive None Recorded Payers Insurance Date Sequence Insurance Name Policy Number Policy Hdez Covered Member ID Hdez Member ID Guarantor Name 07/08/2023 1 [facility] - DOS PRIOR TO 2022 - DUAL ELIGIBLE (MEDICARE REPLACEMENT/ADV ANTAGE - HMO) Roshan Beach [id number] Roshan Beach 07/08/2023 1 [facility] - DOS ON OR AFTER 2022 - DUAL ELIGIBLE - CUSTODIAL OPTIONS AND ONE CARE (MEDICARE REPLACEMENT/ADV ANTAGE - HMO) Roshan Beach [id number] Roshan Beach Notes Date Note Type Note [...] CRC to process visit. Lisa Knapp MD [address] [place] [address],[address], [place], [phone], [employer] 09/22/2021 11:16:07
--- OUTSIDE RECORDS SUMMARY | 2024-08-26 11:54 | XMS_ITS | Clinical Summary ---
Author Organization [facility], Address [address] [place] [address] [place] [address] Phone Care Team Providers Care Shingle Grader Name Role Phone Twyla Joseph MD Primary Care Provider + [phone] Allergies No known active allergies Medications docusate sodium (COLACE) 100 MG capsule 09/06/19 20 Active senna (SENOKOT) 8.6 MG tablet TOME DOS TABLETAS POR V A ORAL TODOS LOS D CUANDO SEA NECESARIO FOR CONSTIPATION 06/16/19 20 Active GAS RELIEF 125 MG capsule TOME DE 1 A 2 C PSULAS POR V A ORAL DESPU S DE LAS COMIDAS AND AL ACOSTARSE MAX 4 PILLS A DAY 07/10/19 20 Active Acetaminophen Extra Strength 500 MG tablet TAKE 1 TABLET BY ORAL ROUTE EVERY6 8 HOURS NEEDED NOT TO EXCEED 4 TABLETS PER 24HRS 01/26/20 20 Active ergocalciferol 1.25 MG (38564 UT) capsule Take 1 capsule (50,000 Units total) by mouth 1 (one) time per week 12 capsule 3 10/04/19 22 Active atorvastatin (LIPITOR) 40 MG tablet TOME ZAYNAB TABLETA TODOS LOS D 04/28/19 23 Active lisinopril 40 MG tablet TOME ZAYNAB TABLETA TODOS LOS D EN LA MA TWYLA 05/08/19 23 Active Melatonin 5 MG tablet TOME ZAYNAB TABLETA POR V A ORAL TODOS LOS D AL ACOSTARSE 04/27/19 23 Active metFORMIN (GLUCOPHAGE) 500 MG tablet TOME ZAYNAB TABLETA (500 MG) POR V A ORAL CON EL DESAYUNO AND WITH EVENING MEAL 06/16/19 23 Active pantoprazole (PROTONIX) 40 MG EC tablet TOME ZAYNAB TABLETA TODOS LOS D 04/27/19 23 Active terazosin (HYTRIN) 10 MG capsule TOME 1 C PSULA POR V A ORAL TODOS LOS D AL ACOSTARSE 04/12/20 22 Active tolterodine LA (DETROL LA) 4 MG 24 hr capsule TOME 1 C PSULA POR V A ORAL TODOS LOS D 06/14/19 23 Active traMADol (ULTRAM) 50 MG tablet TOME ZAYNAB TABLETA POR V A ORAL CADA SEIS HORAS CUANDO SEA NECESARIO PARA EL DOLOR 05/21/19 23 Active ferrous sulfate 325 (65 Fe) MG EC tablet Do not crush, chew, or split. 180 tablet 3 05/19/19 25 Active insulin glargine (LANTUS) 100 UNIT/ML injection Inject under the skin every night 025 Discontinued Active Problems Problem Noted Date [...] Encounters Date Type Department Care Team Description 08/05/2024 1:30 PM EDT [facility] [address] [place] [address] Hilario Cantu MD Essential (primary) hypertension (Primary Dx) from Last 3 Months Family History Medical [...] Care Team (Late st Contact Info) Description 02/03/2025 10:50 AM EDT Office Visit [facility], [address] [facility] [place] [phone] Hilario Cantu MD [address] [facility] [place] [phone] Health Maintenance Due Date Last Done Comments Hepatitis B Vaccine (1 of 3 - 19+ 3-dose series) 1989 08/17/1996, 04/03/1996, 02/04/1996 Colorectal Cancer Screening: Annual FOBT 2019 Colorectal Cancer Screening: Colonoscopy 2019 Colorectal Cancer Screening: Sigmoidoscopy 2019 Diabetes: Ophthalmology Exam 09/10/2019 Diabetes: Pedal Pulse Checked 09/10/2019 Diabetes: Sensory Foot Exam 09/10/2019 Diabetes: Visual Foot Exam 09/10/2019 Diabetes: Hemoglobin A1C 07/06/2024 024, 08/12/2023, 07/04/2023, Additional history exists Influenza Vaccine (Season Ended) 2024 04/23/2023, 01/26/2020, 04/14/2019, Additional history exists Pneumococcal Vaccine: 50+ Years Completed 4 Pneumococcal Vaccine: Peds ( 0 to 5 Years) and At-Risk Patients (6 to 49 Years) Discontinued 07/04/2023 Procedures Procedure Name Priority Date/Time Associated Diagnosis Comments URINE ALBUMIN / CREATININE RATIO Routine 08/18/2024 12:53 PM EDT Essential (primary) hypertension BASIC METABOLIC PANEL Routine 08/18/2024 12:53 PM EDT Essential (primary) hypertension HEMOGLOBIN A1C Routine 06/18/2022 3:07 PM EST from Last 3 Months or Most Recently Relevant to Health Maintenance Results * (ABNORMAL) Urine Albumin / Creatinine Ratio (08/18/2024 12:53 PM EDT) Creatinine, Ur 55.6 Not Estab. mg/dL [facility] Albumin, Urine 73.1 Not Estab. ug/mL [facility] Albumin/Creatin ine Ratio 131(H) 0 - 29 mg/g creat [facility] Comment: ? Normal: ?0 - ??29 ? Moderately increased: 30 - 300 ? Severely increased: ? >300 Urine (Urine, Clean Catch) 08/18/2024 12:53 PM EDT 08/18/2024 us Hilaroi Cantu MD LAB URINE ORDERABLES Final Re sult [facility] [address] [place] [address] * (ABNORMAL) Basic Metabolic Panel (08/18/2024 12:53 PM EDT) Glucose 114(H) 70 - 99 mg/dL [facility] BUN 23 6 - 24 mg/dL [facility] Creatinine 0.96 0.76 - 1.27 mg/dL [facility] eGFR CKD-EPI CR 2020 94 >59 mL/min/1.7 3 [facility] BUN/Creatinine Ratio 24(H) 9 - 20 [facility] Sodium 143 134 - 144 mmol/L [facility] Potassium 4.3 3.5 - 5.2 mmol/L [facility] Chloride 103 96 - 106 mmol/L [facility] Bicarbonate (CO2) 20 20 - 29 mmol/L [facility] Calcium 10.1 8.7 - 10.2 mg/dL [facility] Blood (Blood, Venous) 08/18/2024 12:53 PM EDT 08/18/2024 us Hilario Cantu MD LAB BLOOD ORDERABLES Final Re sult [facility] [address] [place] [address] * (ABNORMAL) Hemoglobin A1c (06/18/2022 3:07 PM EST) Hemoglobin A1C 8.6(H) (4.0-5.6) % [facility] Comment: MONITORING: In known diabetic patients, hemoglobin A1c targets should be discussed with health care provider. DIAGNOSTIC USE: ??The [place] Diabetes Association (ADA) and the World Health [...] Supplement 1 Testing performed or reported by [facility], a Service of [facility], [address] [place] [address] Wendy Corley MD, [facility]# [id number] 06/18/2022 3:07 PM EST 06/18/2022 3:10 PM EST us Abby RADER LAB BLOOD ORDERABLES Final Re sult [facility] from Last 3 Months or Most Recently Relevant to Health Maintenance Insurance [facility] One Care Dual SNP ([id number]) [place] [id number] Care Teams Shingle Grader Relationship Specialty Start Date End Date Twyla Joseph MD [address] [place] [phone] PCP - General Internal Medicine 09/09/20
--- OUTSIDE RECORDS SUMMARY | 2024-08-26 11:54 | XMS_ITS | Encounter Summary ---
Author Organization [employer] Address [address] [facility] 7t [place] [address] Care Team Providers Care Toilet Attendant Name Role Phone Vanessa Foy MD Primary Care Provide r Reason for Visit * Reason Comments Med Refill Encounter Details Date Type Department Care Team (Late st Contact Info) Description 12/21/2022 Refill [facility] [address] [place], [place] [phone] Brittene Gordillo MD [address] [place] [address] Type 2 diabetes mellitus without complication, without long-term current use of insulin ([facility]) Social History Tobacco Use Types Packs/Day Years [...] Description 10/29/2024 1:45 PM EDT Office Visit [facility] OPTOMETRY [address] [place], [place] [phone] Demetrice Davis, OD [address] [place] [address] documented as of this encounter Visit Diagnoses Diagnosis Type 2 diabetes mellitus without complication, without long-term current use of insulin ([facility]) documented in this encounter Additional Health Concerns Assessment Noted Time PHQ-9 Depression Total Score: 0 08/31/19 23 11:44 AM EDT documented as of this encounter Care Teams Toilet Attendant Relationship Specialty Start Date End Date Vanessa Foy MD [address] [place] [address] PCP - General Family Medicine 02/26/19 documented as of this encounter
--- OUTSIDE RECORDS SUMMARY | 2024-08-26 11:54 | XMS_ITS | Encounter Summary ---
Author Organization [facility] Address [address] [facility] 7t [place] [address] Care Team Providers Care Soloist Dancer Name Role Phone Vanessa Foy MD Primary Care Provide r Encounter Details Date Type Department Care Team (Late st Contact Info) Description 12/25/2022 Orders Only [facility] [address] [place], [place] [phone] Provider, Historical, Social History Tobacco Use Types Packs/Day Years [...] Description 10/29/2024 1:45 PM EDT Office Visit [facility] OPT[facility] [address] [place], [place] [phone] TarkaDemetrice, OD [address] [place] [address] documented as of this encounter Procedures Procedure Name Priority Date/Time Associated Diagnosis Comments HM COLONOSCOPY Routine 09/08/2020 documented in this encounter Results * Hm Colonoscopy (09/08/2020) Historical Provider HEALTH MAINTENANCE Final Result documented in this encounter Visit Diagnoses Not on filedocumented in this encounter Additional Health Concerns Assessment Noted Time PHQ-9 Depression Total Score: 0 08/31/19 23 11:44 AM EDT documented as of this encounter Care Teams Soloist Dancer Relationship Specialty Start Date End Date Vanessa Foy MD [address] [place] [address] PCP - General Family Medicine 02/26/19 documented as of this encounter
--- OUTSIDE RECORDS SUMMARY | 2024-08-26 11:54 | XMS_ITS | Encounter Summary ---
Author Organization [employer] Address [address] [facility] 7t [place] [address] Care Team Providers Care Pointing Machine Operator Name Role Phone Vanessa Foy MD Primary Care Provide r Reason for Visit * Reason Comments Med Refill Encounter Details Date Type Department Care Team (Late st Contact Info) Description 12/24/2022 Refill [facility] [address] [place], [place] [phone] Vanessa Foy MD [address] [place] [address] Social History Tobacco Use Types Packs/Day Years [...] Description 10/29/2024 1:45 PM EDT Office Visit [facility] OPTOMETRY [address] [place], [place] [phone] Demetrice Davis, OD [address] [place] [address] documented as of this encounter Visit Diagnoses Not on filedocumented in this encounter Additional Health Concerns Assessment Noted Time PHQ-9 Depression Total Score: 0 05/18/20 23 11:44 AM EDT documented as of this encounter Care Teams Pointing Machine Operator Relationship Specialty Start Date End Date Vanessa Foy MD [address] [place] [phone] PCP - General Family Medicine 02/26/19 documented as of this encounter
--- OUTSIDE RECORDS SUMMARY | 2024-08-26 11:54 | XMS_ITS | Encounter Summary ---
Author Organization [employer] Address 75 [facility] 7t [place] [address] Care Team Providers Care Die Cut Operator Name Role Phone Vanessa Foy MD Primary Care Provide r Encounter Details Date Type Department Care Team (Late st Contact Info) Description 02/22/2023 Orders Only [facility] CHC MED & PEDS [address] [place] [address] Ya Rice LPN Social History Tobacco Use [...] Description 10/29/2024 1:45 PM EDT Office Visit [facility] OPTOMETRY [address] [place] [address] Demetrice Davis, OD [address] [place] [address] documented as of this encounter Visit Diagnoses Not on filedocumented in this encounter Additional Health Concerns Assessment Noted Time PHQ-9 Depression Total Score: 0 08/31/19 23 11:44 AM EDT documented as of this encounter Care Teams Die Cut Operator Relationship Specialty Start Date End Date Vanessa Foy MD [address] [place] [address] PCP - General Family Medicine 02/26/19 documented as of this encounter
--- OUTSIDE RECORDS SUMMARY | 2024-08-26 11:54 | XMS_ITS | Encounter Summary ---
Author Organization [employer] Address 75 [facility] 7t [place] [address] Care Team Providers Care Equity Holder Name Role Phone Vanessa Foy MD Primary Care Provide r Encounter Details Date Type Department Care Team (Late Contact Info) Description 12/21/2022 Orders Only [facility] CHC MED & PEDS [address] [place] [address] Ya Rice LPN Social History Tobacco Use [...] Description 10/29/2024 1:45 PM EDT Office Visit [facility] OPTOMETRY [address] [place] [address] TarkaDemetrice, OD [address] [place] [address] documented as of this encounter Visit Diagnoses Not on filedocumented in this encounter Additional Health Concerns Assessment Noted Time PHQ-9 Depression Total Score: 0 08/31/19 23 11:44 AM EDT documented as of this encounter Care Teams Equity Holder Relationship Specialty Start Date End Date Vanessa Foy MD [address] [place] [address] PCP - General Family Medicine 02/26/19 documented as of this encounter
[2024-08-31 00:49] LABS: TS Negative Control Passed; TS Panel A 0; TS Panel B 0; TS Positive Control Passed; TSpotTB Negative (Negative)
== END 2024-08-26 10:48 | disposition home or self-care (01) ==
LOC: HO.HHCL 10:47
PROVIDERS: Visit Provider Internal Medicine
DX: Z11.1 Encounter for screening for respiratory tuberculosis (principal)
CPT/HCPCS: 36415; 86481

== ENCOUNTER → 2024-09-17 09:27 | Outpatient (REF) | payer OTHER, SELFPAY ==
--- NOTE | 2024-09-17 09:33 | CA_ITS ---
Transthoracic Echocardiogram Patient (Last, First, Middle): Roshan Beach, Gender: Male Date of : 1970 Age: 54 Procedure Date: 09/17/2024 Procedure Type: Transthoracic Echocardiogram Location: OP Height: 167.64 cm Weight: 67.13 kg BSA: 1.76 m2 Heart Rate: bpm BP: 122 / 78 mmHg Medical Authorization Specialist: TO Referring MD: Toni Rolle MD Symptoms: I42.8 - Other cardiomyopathies Study Quality: Fair Conclusions: - The left ventricular systolic function is moderately decreased. The calculated ejection fraction is 38% by biplane method. - No obvious valvular pathology seen on this study. Findings Left Ventricle Mildly increased left ventricular cavity size. There is normal left ventricular wall thickness. The left ventricular systolic function is moderately decreased. The calculated ejection fraction is 38% by biplane method. There is moderate global hypokinesis. Diastolic function is normal for age. Right Ventricle Normal right ventricular cavity size and systolic function. Atria Both atria are normal in size. Aortic Valve There is a normal trileaflet aortic valve. There is no aortic valve stenosis. There is no aortic valve regurgitation. Mitral Valve The mitral valve appears normal. There is trace mitral valve regurgitation. There is no mitral valve stenosis. Pulmonic Valve The pulmonic valve is likely normal. Tricuspid Valve There is mild tricuspid valve regurgitation. There is no evidence of pulmonary hypertension. Great Vessels The asc aorta is normal in size. Small plaque is seen in the sino tubular ridge. Venous The inferior vena cava is normal in size and collapses greater than 50% with inspiration. Pericardium/Pleural There is no evidence of pericardial effusion. Prior Study Comparison No significant change compared to prior study dated: 06/18/2023. Recommendations, Care & Conclusions No obvious valvular pathology seen on this study. Measurements 2D Linear Measurements IVSd: 0.64 0.6-0.9/0.6-1.0 cm LVIDd: 5.94 3.9-5.3/4.2-5.9 cm LVIDd Index: 3.38 2.4-3.2/2.2-3.1 cm/m2 LVIDs: 4.65 2.0-3.6 cm LVPWd: 0.59 0.7-1.1 cm LA Diam: 3.20 2.7-3.8/3.0-4.0 cm LAIDs Index: 1.82 1.5-2.3 cm/m2 LV Mass: 165.22 67-162/88-224 g LV Mass Index: 93.87 43-95/49-115 g/m2 LVOT Diam: 2.20 3.0+(-)1.3 cm 2D Systolic Function EF 4C: 37.60 >55% EF 2C: 38.80 >55% EF BiP: 37.80 >55% Mitral Valve MV Pk E: 0.68 MV PK A: 0.30 MV Decel Time: 155.00 E/A: 2.30 E'Lateral: 7.72 E'Medial: 5.00 E/E' Med: 13.50 E/E' Lat: 8.80 PHT: 46.00 MVA PHT: 4.78 Decel [place]: 4.36 Aortic Valve AoV Pk Bernard: 1.29 AoV Mn Bernard: 0.93 AoV VTI: 0.26 AoV Pk Grad: 7.00 Aov Mn Grad: 4.00 LORENZO Cont.VTI: 2.40 LVOT LVOT Pk Bernard: 0.78 LVOT Mn Bernard: 0.62 LVOT VTI: 0.16 LVOT Pk Grad: 2.00 LVOT Mn Grad: 2.00 LVOT Diam: 2.20 LVOT Area: 3.80 Diastolic Function MV Pk E: 0.68 MV Pk A: 0.30 E/A: 2.30 E'Medial: 5.00 E/E' Med: 13.50 E' Laterial: 7.72 E/E' Lat: 8.80 Right Ventricle TAPSE (mm): 19.50 TVS' Bernard: 10.00 Tricuspid Valve TR Pk Bernard: 2.28 TR Pk Grad: 21.00 RA Press: 3.00 RVSP: 24.00 Great Vessels Aorta Sinus of Valsalva: 2.95 2.0-3.5 cm Ao Asc: 3.50 2.1-3.4 cm Updated in Other Vendor System with Status of Final Toni Rolle MD electronically signed on 09/19/2024 12:04:16 PM with status of Final
--- OUTSIDE RECORDS SUMMARY | 2024-09-17 10:23 | XMS_ITS | Encounter Summary ---
Author Organization [employer] Address 75 [facility] 7t [place] [address] Care Team Providers Care Driller'S Offsider Name Role Phone Vanessa Foy MD Primary Care Provide r Reason for Visit * Reason Comments Med Refill Encounter Details Date Type Department Care Team ([facility] st Contact Info) Description 09/13/2023 Refill [facility] MEDICINE [address] [place] [address] Jayda Zhang MD [address] [place], [place] [phone] Social History Tobacco Use Types Packs/Day Years [...] 1:45 PM EDT Office Visit [facility] OPTOMETRY [address] [place] [address] TarkaDemetrice, OD [address] [place] [address] documented as of this encounter Visit Diagnoses Not on filedocumented in this encounter Additional Health Concerns Assessment Noted Time PHQ-9 Depression Total Score: 0 08/31/19 23 11:44 AM EDT documented as of this encounter Care Teams Driller'S Offsider Relationship Specialty Start Date End Date Vanessa Foy MD [address] [place] [address] PCP - General Family Medicine 02/26/19 documented as of this encounter
== END ==
LOC: HO.CARD 09:27
PROVIDERS: PCP Internal Medicine; Visit Provider Internal Medicine
DX: I42.8 Other cardiomyopathies (principal)
CPT/HCPCS: 93306

== ENCOUNTER → 2024-09-17 09:33 | Outpatient (BNV) | payer OTHER, SELFPAY | PROVIDERS: PCP Internal Medicine; Visit Provider Internal Medicine | DX: I42.8 Other cardiomyopathies (principal) | CPT/HCPCS: 93306 ==

== ENCOUNTER 2024-12-16 10:13 | Outpatient (AMB) | payer OTHER, SELFPAY ==
[2024-12-16 10:30] VITALS: BP 120/68; PULSE 84; BMI 25.7
--- NOTE | 2024-12-16 10:30 | A.OFFVIS_ITS ---
Vital Signs 12/16/24 10:30 Height 5 ft 4 in Weight 149 lb 14.629 oz BMI 25.7 BP 120/68 Blood Pressure Location Lt brachial Position Sitting Pulse 84 Pulse Source Monitor Intake Visit Reasons: 1 yr s/p echo Loss Prevention Detective Required: Yes Loss Prevention Detective Services: Loss Prevention Detective Offered & Declined Accompanied by: Sister Allergies No Known Allergies Allergy (Verified 07/09/24 10:28) Medication List - Last Reconciled 12/16/24 by Toni Rolle MD amlodipine 5 mg PO QAM atorvastatin 40 mg PO DAILY blood sugar diagnostic (FreeStyle Lite Strips) As directed carvedilol (Coreg) 6.25 mg PO BID 90 days ferrous sulfate 325 mg PO BID lancets (FreeStyle Lancets) As directed lisinopril 40 mg PO DAILY metformin 500 mg PO BID mirabegron ER 25 mg PO DAILY 90 days pantoprazole 40 mg PO DAILY sennosides (senna) 17.2 mg PO DAILY tolterodine ER 4 mg PO DAILY 90 days triamcinolone acetonide 0.1% 1 appl topical BID-TID HPI Comments Details: Roshan returns for follow-up. He carries a diagnosis of nonischemic cardiomyopathy. Patient himself has developmental delay and hence unable to give any history. According to sister, he is doing fine. No clear-cut exertional angina but he gets some random pains. He apparently walks a lot without any difficulty. Has comorbidities including diabetes, hypertension, dyslipidemia. [facility] Medical History Diabetes mellitus, type II CKD (chronic kidney disease) Vitamin D deficiency Microalbuminuria Pain of right lower extremity Idiopathic scoliosis Mental disability Surgical History Status post ablation of incompetent vein using laser (01/04/23) History of surgery Family History Father No problems noted. Mother Heart problem Social History Patient Tobacco Use Status: Never used Tobacco Review of Systems Const Denies weakness ENT Denies dizziness Card Reports chest pain, Reports chest pain at rest, Reports chest pain with activity, Denies syncope, Denies rapid heart rate, Denies pedal edema, Denies edema, Denies leg edema, Denies lightheadedness, Denies palpitations, Denies dyspnea, Denies dyspnea on exertion and Denies orthopnea Resp Denies cough, Denies dyspnea and Denies dyspnea on exertion GI Denies hematochezia and Denies change in stool character Musc Denies abnormal gait, Denies muscle cramps, Denies muscle weakness, Denies numbness, Denies radiating pain into limb and Denies tingling Neuro Denies abnormal gait, Denies dizziness, Denies syncope, Denies numbness, Denies tingling and Denies weakness Endo Denies palpitations Physical Exam Vital Signs: Last Vital Signs Pulse 84 12/16/24 10:30 BP 120/68 12/16/24 10:30 BMI result Body Mass Index 25.7 Const General: comfortable and no acute distress Orientation/consciousness: patient oriented x3 HEENT Other: Unremarkable Head: Yes normal to inspection Neck Neck: Yes normal visual inspection Chest Chest palpation & inspection: normal inspection of the chest Resp Auscultation: clear to auscultation bilaterally Cardio Palpation: normal PMI Heart sounds: S1 normal heart sound present, S2 normal heart sound present, no gallops, no murmurs and no rubs GI Palpation (GI): Soft to palpation Back/Spine/Pelvis Other: unremarkable Skin General skin exam: no rashes or lesions noted Neuro General: patient oriented x3 Extrem General: Yes normal to inspection Psych Mental Status: mental status grossly normal Office Procedures EKG Details: EKG with underlying sinus rhythm at 84/Min; no ischemic changes; [place] [address]-[id number], Complete Assessment & Plan Assessment & Plan (1) NICM (nonischemic cardiomyopathy): Code(s): I42.8 - Other cardiomyopathies Category: Medical (2) Mental disability: Code(s): F79 - Unspecified intellectual disabilities Category: Medical Plan In the most recent echocardiogram, LVEF 38%. Recent echocardiogram had shown LVEF in the similar range. In 2021, 40-45%. Myocardial perfusion imaging study from 2021 and 2023 unremarkable. Overall, nonischemic cardiomyopathy of uncertain etiology. He is stable on the current regimen carvedilol and lisinopril. Ideally, should be on Spironolactone but labs are infrequent and we do not have anything in our system for the last year. Recommended that he gets labs done with his PCP visit next time. Sister states she will take care of that. He has got no active heart failure symptoms or signs and no need to add any other agent like Farxiga. Follow up in one year. Discussed with sister. In the interim, call with concerns. Discussion Notes The patient's heart function remains low but stable, with no significant changes from previous assessments. It was advised to continue regular follow-up appointments and ensure all necessary blood work is completed during visits. Patient was informed and verbally consented to the use of an ambient scribe for clinic note documentation during this visit. Patient Instructions: - Monitor for any new or worsening symptoms and report them to your healthcare provider. - Attend all scheduled follow-up appointments to monitor heart function. - Ensure all recommended blood work is completed during healthcare visits. Coding Level of Care Code Est Pt Level 4 (43848) Complex EM visit Add On G2211 Diagnoses NICM (nonischemic cardiomyopathy) I42.8 Mental disability F79 CPT Codes EKG - CPT: 45486-[id number], Complete ([id number])
--- OUTSIDE RECORDS SUMMARY | 2024-12-16 11:44 | XMS_ITS | Encounter Summary ---
Author Organization [employer] Address 75 [facility] 7t [place] [address] Care Team Providers Care Telephone Triage Nurse Name Role Phone Vanessa Foy MD Primary Care Provide r Encounter Details Date Type Department Care Team (Late st Contact Info) Description 02/22/2023 Orders Only [facility] CHC MED & PEDS [address] [place] [address] Ya Rice LPN Social History Tobacco Use [...] Care Team (Late st Contact Info) Description 01/29/2025 9:45 AM EDT Office Visit [facility] OPTOMETRY [address] [place] [address] Demetrice Davis, OD [address] [place] [address] documented as of this encounter Visit Diagnoses Not on filedocumented in this encounter Additional Health Concerns Assessment Noted Time PHQ-9 Depression Total Score: 0 08/31/19 23 11:44 AM EDT documented as of this encounter Care Teams Telephone Triage Nurse Relationship Specialty Start Date End Date Vanessa Foy MD [address] [place] [address] PCP - General Family Medicine 02/26/19 documented as of this encounter
--- OUTSIDE RECORDS SUMMARY | 2024-12-16 11:44 | XMS_ITS | Encounter Summary ---
Author Organization [employer] Address 75 [facility] 7t [place] [address] Care Team Providers Care Inside Sales Assistant Name Role Phone Vanessa Foy MD Primary Care Provide r Reason for Visit * Reason Comments Med Refill Encounter Details Date Type Department Care Team ([facility] st Contact Info) Description 04/16/2023 Refill [facility] CHC MED & PEDS [address] [place], [place] [phone] Vanessa Foy MD [address] [place] [address] Type 2 diabetes mellitus without complication, without long-term current use of insulin ([facility]) Social History Tobacco Use Types [...] Description 01/29/2025 9:45 AM EDT Office Visit [facility] OPTOMETRY [address] [place], [place] [phone] Demetrice Davis OD [address] [place] [address] documented as of this encounter Visit Diagnoses Diagnosis Type 2 diabetes mellitus without complication, without long-term current use of insulin ([facility]) documented in this encounter Additional Health Concerns Assessment Noted Time PHQ-9 Depression Total Score: 0 08/31/19 23 11:44 AM EDT documented as of this encounter Care Teams Inside Sales Assistant Relationship Specialty Start Date End Date Vanessa Foy MD [address] [place] [phone] PCP - General Family Medicine 02/26/19 documented as of this encounter
--- OUTSIDE RECORDS SUMMARY | 2024-12-16 11:44 | XMS_ITS | Clinical Summary ---
Author Organization [facility], Address [address] [place] [address] [place] [address] Phone Care Team Providers Care Certified Physician'S Assistant Name Role Phone Twyla Joseph MD Primary Care Provider + [phone] Allergies No known active allergies Medications docusate [...] EXCEED 4 TABLETS PER 24HRS 0 Active ergocalciferol 1.25 MG (29532 UT) capsule Take 1 capsule (50,000 Units total) by mouth 1 (one) time per week 12 capsule 3 2 Active atorvastatin (LIPITOR) 40 MG tablet TOME ZAYNAB TABLETA TODOS LOS D 3 Active lisinopril 40 MG tablet TOME ZAYNAB TABLETA TODOS LOS D EN LA MA TWYLA 3 Active Melatonin 5 MG tablet TOME [...] kidney disease 09/10/2019 09/14/2020 Hydronephrosis 09/09/2019 09/14/2020 Family History Medical History Relation Comments Stroke [...] Visit [facility], [address] [facility] [address] [place] [phone] Hilario Cantu MD [address] [facility] [place] [phone] Health Maintenance Due Date Last Done Comments [...] 08/12/2023, 07/04/2023, Additional history exists Influenza Vaccine (#1) 2024 4, 01/26/2020, 04/14/2019, Additional history exists Pneumococcal Vaccine: [...] PM EST) Hemoglobin A1C 8.6(H) (4.0-5.6) % [facility] Comment: MONITORING: In known diabetic patients, hemoglobin A1c targets should be discussed with health care provider. DIAGNOSTIC USE: The [place] Diabetes Association (ADA) and the World Health [...] Supplement 1 Testing performed or reported by [facility], a Service of [facility], [address] [place] [address] Wendy Corley MD, Supervisor Pile Driving [facility]# [id number] 06/18/2022 3:07 PM EST 06/18/2022 3:10 PM EST Abby RADER LAB BLOOD ORDERABLES Final Re sult [facility] Organization Address City/State/ZIP Co de Phone Number [facility] from Last 3 Months or Most Recently Relevant to Health Maintenance Insurance Care Dual SNP ([id number]) [place] [phone] Care Teams Certified Physician'S Assistant Relationship Specialty Start Date End Date Twyla Joseph MD [address] [place] [address] PCP - General Internal Medicine 09/09/20
--- OUTSIDE RECORDS SUMMARY | 2024-12-16 11:44 | XMS_ITS | Encounter Summary ---
Author Organization [employer] Address [address] [facility] 7t [place] [address] Care Team Providers Care Buildings And Grounds Coordinator Name Role Phone Vanessa Foy MD Primary Care Provide r Reason for Visit * Reason Comments Med Refill Encounter Details Date Type Department Care Team ([facility] st Contact Info) Description 04/27/2024 Refill [facility] CHC MED & PEDS [address] [place] [address] Vanessa Foy MD [address] [place] [address] Gastroesophageal reflux disease without esophagitis Social History [...] Description 01/29/2025 9:45 AM EDT Office Visit [facility] OPTOMETRY [address] [place] [address] Tarka, Demetrice, OD [address] [place] [address] documented as of this encounter Visit Diagnoses Diagnosis Gastroesophageal reflux disease without esophagitis Esophageal reflux documented in this encounter Additional Health Concerns Assessment Noted Time PHQ-9 Depression Total Score: 1 10/08/19 24 10:58 AM EDT documented as of this encounter Care Teams Buildings And Grounds Coordinator Relationship Specialty Start Date End Date Vanessa Foy MD [address] [place] [address] PCP - General Family Medicine 02/26/19 documented as of this encounter
--- OUTSIDE RECORDS SUMMARY | 2024-12-16 11:44 | XMS_ITS | Encounter Summary ---
Author Organization [facility] [facility] Address 75 [facility] 7t [place] [address] Care Team Providers Care Costume Director Name Role Phone Vanessa Foy MD Primary Care Provide r Encounter Details Date Type Department Care Team (Late st Contact Info) Description 12/25/2022 Orders Only [facility] MEDICINE [address] [place], [place] [phone] Provider, Terrie, Social History Tobacco Use Types Packs/Day Years [...] Description 01/29/2025 9:45 AM EDT Office Visit [facility] OPTOMETRY [address] [place] [address] TarkaDemetrice, OD [address] [place] [address] documented as of this encounter Procedures Procedure [...] documented as of this encounter Care Teams Costume Director Relationship Specialty Start Date End Date Vanessa Foy MD [address] [place] [address] PCP - General Family Medicine 02/26/19 documented as of this encounter
--- OUTSIDE RECORDS SUMMARY | 2024-12-16 11:44 | XMS_ITS | Encounter Summary ---
Author Organization [employer] Address [address] [facility] 7t [place] [address] Care Team Providers Care Stone Sandblaster Name Role Phone Vanessa Foy MD Primary Care Provide r Reason for Visit * Reason Comments Med Refill Encounter Details Date Type Department Care Team (Late st Contact Info) Description 12/21/2022 Refill [facility] [address] [place], [place] [phone] Brittnee Gordillo MD [address] [place], [place] [phone] Type 2 diabetes mellitus without complication, without long-term current use of insulin ([facility]) Social History Tobacco Use Types Packs/Day [...] Description 01/29/2025 9:45 AM EDT Office Visit [facility] OPTOMETRY [address] [place], [place] [phone] Demetrice Davis, OD [address] [place] [address] documented as of this encounter Visit Diagnoses Diagnosis Type 2 diabetes mellitus without complication, without long-term current use of insulin ([facility]) documented in this encounter Additional Health Concerns Assessment Noted Time PHQ-9 Depression Total Score: 0 08/31/19 23 11:44 AM EDT documented as of this encounter Care Teams Stone Sandblaster Relationship Specialty Start Date End Date Vanessa Foy MD [address] [place] [address] PCP - General Family Medicine 02/26/19 documented as of this encounter
--- OUTSIDE RECORDS SUMMARY | 2024-12-16 11:44 | XMS_ITS | Encounter Summary ---
Author Organization [employer] Address [address] [facility] 7t [place] [address] Care Team Providers Care Store Management Trainee Name Role Phone Vanessa Foy MD Primary Care Provide r Encounter Details Date Type Department Care Team (Late st Contact Info) Description 05/25/[address] [facility] MEDICINE [address] [place], [place] [phone] Vanessa Foy MD [address] [place], [place] [phone] Social History Tobacco Use Types Packs/Day Years [...] Upcoming Encounters Date Type Department Care Team ([facility] st Contact Info) Description 01/29/2025 9:45 AM EDT Office Visit [facility] OPTOMETRY [address] [place] [address] Demetrice Davis, OD [address] [place] [address] documented as of this encounter Visit Diagnoses Not on filedocumented in this encounter Additional Health Concerns Assessment Noted Time PHQ-9 Depression Total Score: 1 10/08/19 24 10:58 AM EDT documented as of this encounter Care Teams Store Management Trainee Relationship Specialty Start Date End Date Vanessa Foy MD [address] [place] [address] PCP - General Family Medicine 02/26/19 documented as of this encounter
--- OUTSIDE RECORDS SUMMARY | 2024-12-16 11:44 | XMS_ITS | Clinical Summary ---
Author Organization [employer] Address [address] [facility] 7t [place] [address] Care Team Providers Care Bacteriologist Food Name Role Phone Vanessa Foy MD Primary [...] TODOS LOS D CUANDO SEA NECESARIO PARA ESTRENIMIENTO. 12/22/19 23 Active clotrimazole (Lotrimin) 1 % cream Apply topically 2 times daily. 30 g 02/27/20 23 Active triamcinolone (Kenalog) 0.1 % creamIndications:R charley APPLY A THIN LAYER TO THE AFFECTED AREA ONCE DAILY IF NEEDED 45 g 3 10/08/19 24 Active Blood Glucose Monitoring Suppl (FreeStyle Erhard Lite) w/Device kitIndications:Typ e 2 diabetes mellitus with hyperglycemia, without long-term current use of insulin ([facility]) Use to test blood sugar 3 times daily 1 kit 11/25/19 24 Active lidocaine (Lidoderm) 5 % patchIndications:R ight hip pain Apply 1 patch topically Once per day. Remove & discard patch within 12 hours or as directed by MD. 30 patch 1 01/08/20 24 Active glucose blood (FREESTYLE LITE) test strip USE TO TEST BLOOD SUGAR THREE TIMES A DAY 100 strip 11 01/21/20 24 Active Diclofenac Sodium 1 % gelIndications:Mirza ateral carpal tunnel syndrome APPLY 1 INCH TOPICALLY IF NEED IN MORNING AND AT BED (APPLY TWICE DAILY ON AFFECTED AREA IF NEEDED). 100 g 1 01/21/20 24 Active FreeStyle lancets USE JESUS VECES AL RICHY 100 each 2 07/29/19 25 Active metFORMIN (Glucophage) 500 MG tabletIndications: Type 2 diabetes mellitus without complication, without long-term current use of insulin (CMS/HCC) TAKE 1 TABLET BY MOUTH TWICE A DAY WITH BREAKFAST AND EVENING MEAL 180 tablet 1 07/29/19 25 Active Senna-Time 8.6 MG tablet TOME DOS TABLETAS POR VIA ORAL TODOS LOS CHAVARRIA CUANDO SEA NECESARIO PARA ESTRENIMIENTO. 180 tablet 3 07/29/19 25 Active lisinopril 40 MG tabletIndications: HTN (hypertension), benign TOME 1 TABLETA POR VIA ORAL TODOS LOS CHAVARRIA EN LA MANANA 90 tablet 1 07/29/19 25 Active pantoprazole (ProtoNix) 40 MG EC tabletIndications: Gastroesophageal reflux disease without esophagitis TAKE 1 TABLET BY MOUTH EVERY MORNING. DO NOT CRUSH, CHEW, OR SPLIT. 90 tablet 10/06/19 25 Active atorvastatin (Lipitor) 40 MG tabletIndications: Hyperlipidemia, unspecified hyperlipidemia type TAKE 1 TABLET BY MOUTH EVERY DAY 90 tablet 10/24/19 25 Active amLODIPine (Norvasc) 2.5 MG tabletIndications: Essential hypertension TAKE 2 TABLETS BY MOUTH EVERY MORNING 180 tablet 1 11/12/19 25 Active carbamide peroxide (Debrox) 6.5 % otic solutionIndication s:Excessive ear wax, bilateral Administer 5-10 drops into affected ear(s) 2 times daily for 4 days. 30 mL 11/14/19 25 025 Active Problems Problem Noted Date Diagnosed Date Excessive ear wax, bilateral 11/13/2024 Assessment & Plan (11/13/2024 3:22 PM EDT): Debrox prescribed plan is for him to come back for ear lavage appointment in 5 days Right hip pain 01/08/2024 Colon cancer screening 07/04/2023 Bilateral carpal tunnel syndrome 06/06/2023 Assessment & Plan (07/04/2023 9:38 AM EDT): NCS reviewed with patient and family, I advise use of wrist braces prescription will be generated Also referral to hand surgery Assessment & Plan (06/06/2023 1:34 PM EST): Symptomatology suggestive of CTS Plan: Wrist splinting at night NCS Follow up with PCP Varicose veins of both lower extremities 023 Benign prostatic hyperplasia with urinary freque ncy 11/09/2022 Diverticular disease 11/09/2022 Dysuria 11/09/2022 Type 2 diabetes mellitus without complication [...] Vascular Specialist for further evaluation and management. Type 2 diabetes mellitus wit h hyperglycemia, without long-term current use of insulin 08/30/2022 Assessment & Plan (11/13/2024 3:23 PM EDT): Diabetes is: almost at goal - Lab Results Component Value Date HGBA1C 7.1 (A) 11/13/2024 HGBA1C 6.7 (A) 04/07/2024 HGBA1C 6.6 (A) 10/08/2023 - Lab Results Component Value Date MICROALBUR 60.0 01/08/2024 CREATININE 0.97 01/08/2024 -Changes: none - Diabetic eye exam:up to date - Diabetic foot exam:up to date - Continue lifestyle modifications - Continue current medications - Follow up: 3 months Assessment & Plan (04/07/2024 11:47 AM EST): [...] evaluation with NCT if his pain persists Essential hypertension 06/23/2018 Assessment & Plan (11/13/2024 3:24 PM EDT): I advised: - Aerobic exercise to reduce [...] consulting health care provider Assessment & Plan (04/07/2024 11:46 AM EST): [...] prescriptions without first consulting health care provider Chronic constipation 10/28/2017 Microalbuminuria 10/28/2017 Chronic kidney disease 10/28/2017 Assessment & Plan (06/06/2023 1:44 PM EST): Pt with HTN despite daily use of: Lisinopril 40 mg po daily Start Amlodipine 2.5 mg po daily Follow up in 1 month with PCP Vitamin D deficiency 10/28/2017 Pain of right lower extremity 09/16/2017 Intellectual disability 09/28/2011 Scoliosis (and kyphoscoliosis), idiopathic 09/27 Resolved Problems Problem Noted Date Diagnosed Date Resolved Date Impacted cerumen of left ear 07/04/2023 11/13/2024 Abdominal discomfort 11/09/2022 025 Balanitis 11/09/2022 11/13/2024 Impacted cerumen 11/09/2022 11/13/2024 Knee pain 11/09/2022 11/13/2024 Otitis externa 11/09/2022 11/13/2024 Rash 08/30/2022 11/13/2024 Assessment & Plan (09/05/2022 6:22 PM EDT): - likely venous stasis dermatitis - refer to vascular specialist - judicious use of steroid Overweight 06/23/2018 11/13/2024 Cough 12/06/2017 11/13/2024 Fever with chills 12/06/2017 11/13/2024 Encounters Date Type Department Care Team Description 11/23/2024 Travel 11/18/2024 10:30 AM EDT Clinical Support [facility] [address] [place] [address] Chio Edmond RN Excessive ear wax, bilateral 11/18/2024 Travel 11/16/2024 Telephone [facility] [address] [place] [address] Vanessa Foy MD 11/13/2024 2:45 PM EDT Office Visit [facility] [address] [place] [address] Vanessa Foy MD Screening for colon cancer (Primary Dx); Type 2 diabetes mellitus with hyperglycemia, without long-term current use of insulin (CMS/HCC); Excessive ear wax, bilateral; Essential hypertension 11/13/2024 Travel 11/12/2024 Telephone [facility] [address] [place] [address] Vanessa Foy MD Chart Prep 11/10/2024 Refill [facility] [address] [place] [address] Vanessa Foy MD HTN (hypertension), benign; Type 2 diabetes mellitus without complication, without long-term current use of insulin (CMS/HCC); Gastroesophageal reflux disease without esophagitis; Hyperlipidemia, unspecified hyperlipidemia type; Essential hypertension 11/03/2024 Patient Outreach [facility] [address] [place] [phone] Vanessa Foy MD Pre-visit Planning ((Unable to reach for PVP screening, LVM with sister) to be completed in office ) 10/29/2024 1:45 PM EDT Office Visit [facility] [address] [place] [address] Demetrice Davis, YOU Type 2 diabetes mellitus without ophthalmic manifestations (CMS/HCC) (Primary Dx); Megalopapilla; Open angle with borderline findings, high risk, right; Presbyopia 10/29/2024 Travel 10/23/2024 Refill [facility] [address] [place] [address] Vanessa Foy MD Hyperlipidemia, unspecified hyperlipidemia type 10/02/2024 Refill [facility] [address] [place] [address] Vanessa Foy MD Gastroesophageal reflux disease without esophagitis 09/25/2024 Telephone [facility] [address] [place] [address] Vanessa Foy MD Med Refill 09/19/2024 Refill [facility] [address] [place] [address] Vanessa Foy MD Gastroesophageal reflux disease without [...] adsorbed 02/20/2006,11/12/1995,12/03/1983,1976 Tdap 11/15/2022,05/13/2012 Zoster, Recombinant 04/23/2023,11/22/2022 Family History Medical History Relation Name Comments Diabetes Mother Relation Name Status Comments Mother Social History Tobacco Use Types Packs/Day Years [...] Date Recorded Patient Health Questionnaire-9 Score 0 11/13/2024 Patient Health Questionnaire-9 Score 0 11/13/2024 Last PHQ-9: Questionnaire Data Not on file 0 11/13/2024 Housing Stability Answer Date Recorded What is your housing situation today? I have jaspreet daily 11/13/[address] you li ve. Do you have problems with any of the following? None of the above 11/13/2024 Food Insecurity Answer Date Recorded Within the past 12 months, y ou worried that your food would run out before you got money to buy more: Never True 11/13/2024 Within the past 12 months,th e food you bought just didn't last and you didn't have enough money to get more: Never True 04/2024 Transportation Answer Date Recorded In the past 12 months, has l ack of transportation kept you from medical appts, meetings, work or from getting things needed for daily living? No 11/13/2024 Utilities Answer Date Recorded In the past 12 months, has t he electric, gas, oil or water company threatened to shut off services in your home? No 11/13/2024 Depression Answer Date Recorded Patient Health Questionnaire-2 Score 0 11/13/2024 Internet Access Answer Date Recorded Internet Access Q1 Yes 11/13/2024 Internet Access Q2 Not on file 11/13/2024 Sex and Gender Information Value Date Recorded Sex Assigned at Male 02/12/2022 10:15 AM EDT Legal Sex Male 10:15 AM EDT Gender Identity Male 02/12/2022 10:15 AM EDT Sexual Orientation Choose not to disclose 2021 10:15 AM EDT Last Filed Vital Signs Vital Sign Reading Time Taken Comments Blood Pressure 118/76 11/13/2024 2:51 PM EDT Pulse 70 11/13/2024 2:51 PM EDT Temperature 36.9 C (98.4 F) 11/13/2024 2:51 PM EDT Respiratory Rate 14 11/13/2024 2:51 PM EDT Oxygen Saturation 100% 01/08/2024 11:14 AM EDT Inhaled Oxygen Concentration - - Weight 68.6 kg (151 lb 3.2 oz) 11/13/2024 2:51 P M EDT Height 160 cm (5' 3 ) 11/13/2024 2:51 PM EDT Body Mass Index 26.78 11/13/2024 2:51 PM EDT Plan of Treatment Upcoming Encounters Date Type Department Care Team (Late st Contact Info) Description 01/29/2025 9:45 AM EDT Office Visit [facility] [address] [place], [place] [phone] Demetrice Davis, YOU [address] [place] [address] Health Maintenance Due Date Last Done Comments CT Colonography 1970 FIT 1970 FOBT 1970 Sigmoidoscopy 1970 Diabetes: Foot Exam 1980 Hepatitis C Screening 1988 COVID-19 Vaccine ( season) 2023 04/21/2021, 08/25/2020, 07/28/2020 Influenza Vaccine (#1) 2024 , 01/26/2020, 04/14/2019, Additional history exists Alcohol/Substance Use Screening 01/07/2025 01/08/2024 Lipid Panel 01/07/2025 01/08/2024, 07/15, 04/22/2020, Additional history exists Diabetes: Hemoglobin A1C 02/13/2025 025, 04/07/2024, 10/08/2023, Additional history exists Diabetes: Urine Protein Screening 08/18/2025 08/18/2024, 01/08/2024, 01/31/2021, Additional history exists Tobacco Screening 10/29/2025 10/29/2024 Depression Screening 11/13/2025 11/13/2024, 11/14/19 25 Disability Screening 11/13/2025 11/13/2024 SDOH Screening 11/13/2025 11/13/2024 Colorectal Cancer Screening 09/13/2026 FIT DNA/Cologuard 09/13/2026 09/14/2023 Eye Exam 10/29/2026 10/29/2024, 10/13, 10/29/2024, Additional history exists Colonoscopy 09/08/2030 09/08/2020 DTaP/Tdap/Td Vaccines (6 - Td or Tdap) 11/15/2032 11/15/2022, 05/13/2012, 02/20/2006, Additional history exists RSV Patients and Patients Aged 60 years or older (1 - 1-dose 75+ series) 2045 IPV Vaccines Completed 12/03/1983, 0 10/1976, 05/08/1972, Additional history exists Hepatitis B [...] Procedure Name Priority Date/Time Associated Diagnosis Comments WV REMOVAL IMPACTED CERUMEN IRRIGATION/LVG UNILAT Routine 11/18/2024 11:34 AM EDT Excessive ear wax, bilateral POCT GLYCATED HEMOGLOBIN, TOTAL Routine 11/13/2024 3:00 PM EDT Type 2 diabetes mellitus with hyperglycemia, without long-term current use of insulin (CMS/HCC) POCT GLUCOSE Routine 11/13/2024 2:52 PM EDT Type 2 diabetes mellitus with hyperglycemia, without long-term current use of insulin (CMS/HCC) COLOR FUNDUS PHOTOGRAPHY - OU - BOTH EYES Routine 10/29/2024 4:50 PM EDT Open angle with borderline findings, high risk, right ALBUMIN, RANDOM URINE W/CREATININE Routine 01/08/2024 12:00 PM EDT Type 2 diabetes mellitus with hyperglycemia, without long-term current use of insulin (CMS/HCC) LIPID PANEL WITH REFLEX TO DIRECT LDL Routine 01/08/2024 12:00 PM EDT Type 2 diabetes mellitus with hyperglycemia, without long-term current use of insulin (CMS/HCC) LAB COLOGUARD COLON CANCER SCREEN Routine 09/14/2023 7:00 PM EDT Colon cancer screening HM COLONOSCOPY Routine 09/08/2020 ZZZ HISTORICAL HIV AB/AG Routine 04/17/2019 8:52 AM EST from Last 3 Months or Most Recently Relevant to Health Maintenance Results * WV REMOVAL IMPACTED CERUMEN IRRIGATION/LVG UNILAT (11/18/2024 11:34 AM EDT) Narrative Chio Edmond RN - 11/18/2024 11:34 AM EDT Chio Edmond RN 11/18/2024 12:12 PM Ear Cerumen Removal Date/Time: 11/18/2024 11:34 AM Performed by: Chio Edmond RN Authorized by: Vanessa Barth MD Consent: Consent obtained: Verbal Consent given by: Patient Risks, benefits, and alternatives were discussed: yes Risks discussed: Bleeding, infection, pain, dizziness, incomplete removal and TM perforation Alternatives discussed: Referral (ENT) [place] protocol: Procedure explained and questions answered to patient or proxy's satisfaction: yes Relevant documents present and verified: yes (OV note dated 11/13/24) Required blood products, implants, devices, and special equipment available: yes Site/side marked: yes Immediately prior to procedure, a time out was called: yes Patient identity confirmed: Verbally with patient Procedure details: Location: R ear and L ear Procedure type: irrigation Procedure outcomes: cerumen removed Post-procedure details: Inspection: Ear canal clear and no bleeding Hearing quality: Improved Procedure completion: Tolerated well, no immediate complications us Vanessa Barth MD IN CLINIC/BEDSIDE ORD ERABLES Final Result * (ABNORMAL) POCT HGB A1C (11/13/2024 3:00 PM EDT) Hemoglobin A1C 7.1(A) 4.0 - 5.7 % Blood 11/13/2024 3:00 PM EDT us Vanessa Barth MD POINT OF CARE TEST EN TER/EDIT ORDERABLES Final Result * POCT Glucose (11/13/2024 2:52 PM EDT) Glucose Blood, POC 98 60 - 200 mg/dL Blood Capillary blood specimen / Unknown 11/13/2024 2:52 PM EDT us Vanessa Barth MD POINT OF CARE TEST EN TER/EDIT ORDERABLES Final Result * Color Fundus Photography - OU - Both Eyes (10/29/2024 4:50 PM EDT) Narrative Demetrice Davis, OD - 10/29/2024 4:50 PM EDT Images from the original result were not included. FUNDUS PHOTO INTERPRETATION Fundus Photo Interpretation Report Reliability: OD: good quality OS: de-centered Test Details: OD: Large optic nerve head (estimated 2.73mm2 disc volume), with PPA 360, large cup-to-disc ratio (C/D) (0.75V, 0.85H), nasalization of disc OS: Average optic nerve head size (unable to obtain high enough image quality for disc volume estimate), moderate cup-to-disc ratio (C/D) (0.55V/0.55H) Comments: Baseline image. Monitor in 3 months. us Demetrice Davis OD OPHTH PHOTOGRAPHY Final Result * Lipid Panel with Reflex to Direct LDL (01/08/2024 12:00 PM EDT) Triglycerides 90 <150 mg/dL [facility] Comment:Desirable Triglyceri de: less than 150 mg/dLBorderline High Triglyceride 150-199 mg/dLHigh Triglyceride: 200-499 mg/dLVery High Triglyceride: greater than or equal to 5OO mg/dL Cholesterol 139 <200 mg/dL [facility] Comment:Desirable Cholestero l: less than 200 mg/dLBorderline High Cholesterol: 200-239 mg/dLHigh Cholesterol: greater than 239 mg/dL LDL Cholesterol Calculated 67 <100 mg/dL [facility] Comment:Desirable LDL: less than 100 mg/dLNear Optimal/Above Optimal LDL: 110- 129 mg/dLBorderline High LDL: 130-159 mg/dLHigh LDL: 160-189 mg/dLVery High LDL: greater than or equal to 190 mg/dL HDL Cholesterol 54 >40 mg/dL [facility] Comment:Desirable HDL: great er than 40 mg/dL Note: This HDL assay may give artificially low results in patients with liver disease. Blood 01/08/2024 12:0 0 PM EDT 01/08/2024 1:20 PM EDT Vanessa Barth MD LAB BLOOD ORDERABLES Final Result Performing Organization Address [facility] de Phone Number [facility] [address] [place] [phone] * (ABNORMAL) Albumin, Random Urine W/Creatinine (01/08/2024 12:00 PM EDT) Creatinine, Urine 58.35 mg/dL [facility] Microalbumin Urine 60.0 mg/L [facility] Microalbum Creatinine Ratio Ur 102.8(H) <30 ug/mg cr [facility] Comment:Albumin/Creatinine R atio Reference Ranges: Normal: < 30 ug/mg creatinine Microalbuminuria: 30 - 300 ug/mg creatinineClinical Albuminuria: > 300 ug/mg creatinine Urine (Urine, Random) 01/08/2024 12:00 PM EDT 01/08/2024 1:19 PM EDT us Vanessa Barth MD LAB URINE ORDERABLES Final Result Performing Organization Address [facility] de Phone Number [facility] [address] [place] [address] [phone] * Cologuard?? colon cancer screening (09/14/2023 7:00 PM EDT) Cologuard Result Negative Negative 09/20/19 5:52 AM EDT [facility] (CLIA #:[id number]) Comment: NEGATIVE TEST RESULT. A negative Cologuard result indicates a low likelihood that a colorectal cancer (CRC) or advanced adenoma (adenomatous polyps with more advanced pre-malignant features) is present. The chance that a person with a negative Cologuard test has a colorectal cancer is less than 1 in 1500 (negative predictive value >99.9%) or has an advanced adenoma is less than 5.3% (negative predictive value 94.7%). These data are based on a prospective cross-sectional study of 10,000 individuals at average risk for colorectal cancer who were screened with both Cologuard and colonoscopy. (Kathya Cason et al, N Engl J Med 2014;370(14):0386-4836) The normal value (reference range) for this assay is negative. COLOGUARD RE-SCREENING RECOMMENDATION: Periodic colorectal cancer screening is an important part of preventive healthcare for asymptomatic individuals at average risk for colorectal cancer. Following a negative Cologuard result, the [place] [employer] and U.S. Multi-Society Task Force screening guidelines recommend a Cologuard re-screening interval of 3 years. References: [place] [employer] Guideline for Colorectal Cancer Screening: https://www.cancer.org/cancer/kwdes-crbtke-oemqae/tbenvdvei-hhocecozr-tygwtol/ac s-rec ommendations.html.; Janes DK, Nina LOZANO, Jenn FisherK, Colorectal Cancer Screening: Recommendations for Physicians and Patients from the U.S. Multi-Society Task Force on Colorectal Cancer Screening , Am J Gastroenterology 2017; 112:4107-5030. TEST DESCRIPTION: Composite algorithmic analysis of stool DNA-biomarkers with hemoglobin immunoassay. Quantitative values of individual biomarkers are not [...] (Kathya Shaw al, N Engl J Med 2014;370(14):7019-5818.) Cologuard may produce a false negative or false positive result (no colorectal cancer or precancerous polyp present at colonoscopy follow up). A negative Cologuard test result does not guarantee the absence of CRC or advanced adenoma (pre-cancer). The current Cologuard screening interval is every 3 years. ([place] [employer] and U.S. Multi-Society Task Force). Cologuard performance data in a 10,000 patient pivotal study using colonoscopy as the reference method can be accessed at the following location: www.[employer]/results. Additional description of the Cologuard test process, warnings and precautions can be found at www.[employer]. Stool specimen (specimen) Rectal contents / Unknown 09/14/2023 7:00 PM EDT 09/17/2023 1:42 PM EDT Vanessa Barth MD LAB MOLECULAR DIAGNOS TICS ORDERABLES Final Result [facility] (CLIA #:[id number]) [place] [address], * Colonoscopy (09/08/2020) Historical Provider HEALTH MAINTENANCE Final Result * HIV AB/AG (04/17/2019 8:52 AM EST) HIV AG/AB NONREACTIVE [facility] Comment: HIV-1 p24 Ag and/or HIV-1/HIV-2 Ab not detected. A test result that is nonreactive does not exclude the possibility of exposure to or infection with HIV-1 and/or HIV-2. Nonreactive results in this assay for individuals with prior exposure to HIV-1 and/or HIV-2 may be due to antigen and antibody levels that are below the limit of detection of this assay. The [employer] HIV Ag/Ab Combo assay result and supplemental assay results should be interpreted in conjunction with the patient's clinical presentation, history and other laboratory results. If the results are inconsistent with clinical evidence, additional testing is suggested to confirm the result. 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
--- OUTSIDE RECORDS SUMMARY | 2024-12-16 11:44 | XMS_ITS | Encounter Summary ---
Author Organization [employer] Address [address] [facility] [address]t [place] [address] Care Team Providers Care Ocean Lifeguard Name Role Phone Vanessa Foy MD Primary Care Provide r Reason for Visit * Reason Comments Med Refill Encounter Details Date Type Department Care Team (Late st Contact Info) Description 12/21/2022 Refill [facility] [address] [place], [place] [phone] Vanessa Foy MD [address] [place], [place] [phone] Social History Tobacco Use Types Packs/Day Years [...] Description 01/29/2025 9:45 AM EDT Office Visit [facility] [address] [place], [place] [phone] Demetrice Davis, OD [address] [place] [address] documented as of this encounter Visit Diagnoses Not on filedocumented in this encounter Additional Health Concerns Assessment Noted Time PHQ-9 Depression Total Score: 0 08/31/19 11:44 AM EDT documented as of this encounter Care Teams Ocean Lifeguard Relationship Specialty Start Date End Date Vanessa Foy MD [address] [place] [phone] PCP - General Family Medicine 02/26/19 documented as of this encounter
--- OUTSIDE RECORDS SUMMARY | 2024-12-16 11:44 | XMS_ITS | Clinical Summary ---
Author Organization [address] [place] [address] Address [address] [place] [address] Phone Care Team Providers Care Director Of Physical Security Name Role Phone Vanessa Foy MD Primary [...] Encounters Date Type Department Care Team Description 09/24/2024 10:30 AM EDT Office Visit Orthopedic Surgery - [address] [phone] Rivas Davis, DPM Dermatophytosis of nail (Primary Dx); Acquired hammer toe of right foot; Hammer toe of left foot; Diabetic mononeuropathy simplex (CMS/HCC V24, CMS/HCC V28) from Last 3 Months Surgical History Surgery Date Site/Laterality Comments OTHER SURGICAL HISTORY PROCEDURE: DE RPR 1ST INGUN HRNA AGE 5 YRS/> REDUCIBLE HERNIA REPAIR RIGHT INGUINAL TRANSURETHRAL RESECTION OF PROSTATE ULNAR TUNNEL RELEASE 07/15/2024 Left ulnar decompression CARPAL TUNNEL RELEASE 07/15/2024 Left Medical History Medical History Date Comments Umbilical hernia DX:Umbilical he rnia Mental retardation DX:Mental ret ardation Scoliosis (and kyphoscoliosis), idiopathic DX:Scoliosis (and kyphoscoliosis), idiopathic Lower leg pain DX:Lower leg maddie n; COMMENT: right lower Vitamin D deficiency DX:Vitamin D deficiency Chronic kidney disease DX:Chroni c kidney disease Hypertension DX:Hypertension Umbilical hernia DX:Umbilical he rnia Hyperlipidemia GERD (gastroesophageal reflux disease) Diabetes mellitus (CMS/HCC V 24, CMS/HCC V28) Cognitive deficits Family History Medical History [...] 97 07/16/2024 5:16 PM EDT Temperature 36.8 C (98.2 F) 07/16/2024 5:16 PM EDT Respiratory Rate 20 07/16/2024 5:16 PM EDT Oxygen Saturation 96% 07/16/2024 5:16 PM EDT Inhaled Oxygen Concentration - - Weight 65.8 kg (145 lb 1 oz) 09/24/2024 10:21 AM EDT Height 160 cm (5' 2.99 ) 09/24/2024 10:21 AM EDT Body Mass Index 25.7 09/24/2024 10:21 AM EDT Plan of Treatment Upcoming Encounters Date Type Department Care Team (Late st Contact Info) Description 12/28/2024 10:00 AM EDT Office Visit Orthopedic Surgery - [place] [address] [phone] Rivas Davis, DPM [address] [address] Health Maintenance Due Date Last Done Comments Diabetes: Annual Foot Exam 1980 Diabetes: Annual Retina Eye Exam 1980 HIV Screening 11/12/2023 Hepatitis C Screening 11/12/2023 Medicare Annual Wellness Visit 11/12/2023 Social Influencers of Health Screening 11/12/2023 Depression Screening 04/15/2024 Diabetes: Blood Sugar Control Test (HGBA1C) 10/06/2024 04/07/2024, 08/12/2023, 06/18/2022 COVID-19 Vaccine ( season) 2024 04/21/2021, 08/25/2020, 07/28/2020 Influenza Vaccine (#1) 2024 , 01/26/2020, 04/14/2019, Additional history exists Diabetes: Annual Urine Albumin-Creatinine Ratio (uACR) 08/18/2025 08/18/2024 Diabetes: Annual GFR (Glomerular Filtration Rate) 08/18/2025 08/18/2024, 01/08/2024, 06/15/2022 Hypertension/CHF/CAD Annual BMP Blood Test 08/18/2025 08/18/2024, 01/08/2024, 06/15/2022 Cholesterol Screening (Lipid Panel) 08/11/2028 [...] to Health Maintenance Results * Colonoscopy (09/14/2023) Pathologist [facility] Colonoscopy No Interpretation , Abstracted Anatomical Region Laterality Modality Other Result [facility] Provider HEALTH MAINTENANCE Final Result * Hemoglobin A1c (08/12/2023) [facility] Hemoglobin A1C 0.0 % Comment:Outside System Blood Venous blood specimen / Unknown Result [facility] Provider LAB BLOOD ORDERABLES Rebecca l Result * Lipid panel (08/12/2023) [facility] Triglycerides 0 mg/dL Comment:Outside System Cholesterol 0 mg/dL Comment:Outside System HDL 0 mg/dL Comment:Outside System LDL Cholesterol 0 mg/dL Comment:Outside System Blood Venous blood specimen / Unknown Result [facility] Provider LAB BLOOD ORDERABLES Rebecca l Result * Annual BMP Blood Test (06/15/2022) Pathologist [facility] Annual BMP Blood Test Abstracted Result [facility] Provider HEALTH MAINTENANCE Final Result from Last 3 Months or Most Recently Relevant to Health Maintenance Insurance [facility] MEDICARE Member Subscriber Plan / Payer (Ef fective 2017-Present) Name:Roshan Beach Relation to Subscriber:Self Name:Roshan Beach Payer ID:[id number] Group ID:[id number] Type:Not on file Address: [facility] [place] [phone] Advance Directives Documents on File Type Date Recorded Patient Traveling Nurse Expl [facility] Care Decision (hx) 03/25/2019 AD PELAYO DIRECTIVE [...] currently active code status orders. Care Teams Director Of Physical Security Relationship Specialty Start Date End Date Vanessa Foy MD [address] [place] [phone] PCP - General Internal Medicine 11/14/18
--- OUTSIDE RECORDS SUMMARY | 2024-12-16 11:44 | XMS_ITS | Encounter Summary ---
Author Organization [employer] Address [address] [facility] 7t [place] [address] Care Team Providers Care Towel Sorter Name Role Phone Vanessa Foy MD Primary Care Provide r Reason for Visit * Reason Comments Med Refill Encounter Details Date Type Department Care Team (Late st Contact Info) Description 12/24/2022 Refill [facility] MEDICINE [address] [place], [place] [phone] Vanessa Foy MD [address] [place], [place] [phone] Social History Tobacco Use Types Packs/Day Years [...] 9:45 AM EDT Office Visit [facility] OPTOMETRY [address] [place], [place] [phone] Demetrice Davis, OD [address] [place] [address] documented as of this encounter Visit Diagnoses Not on filedocumented in this encounter Additional Health Concerns Assessment Noted Time PHQ-9 Depression Total Score: 0 08/31/19 11:44 AM EDT documented as of this encounter Care Teams Towel Sorter Relationship Specialty Start Date End Date Vanessa Foy MD [address] [place] [address] PCP - General Family Medicine 02/26/19 documented as of this encounter
--- OUTSIDE RECORDS SUMMARY | 2024-12-16 11:44 | XMS_ITS | Encounter Summary ---
Author Organization [employer] Address [address] [facility] [address] [place] [address] Care Team Providers Care Carding Machine Feeder Name Role Phone Vanessa Foy MD Primary Care Provide r Encounter Details Date Type Department Care Team (Late Contact Info) Description 12/21/2022 Orders Only [facility] CHC MED & PEDS [address] [place] [address] Ya Rice LPN Social History Tobacco Use [...] Description 01/29/2025 9:45 AM EDT Office Visit [facility] OPTOMETRY [address] [place] [address] TarkaDemetrice, OD [address] [place] [address] documented as of this encounter Visit Diagnoses Not on filedocumented in this encounter Additional Health Concerns Assessment Noted Time PHQ-9 Depression Total Score: 0 08/31/19 23 11:44 AM EDT documented as of this encounter Care Teams Carding Machine Feeder Relationship Specialty Start Date End Date Vanessa Foy MD [address] [place] [address] PCP - General Family Medicine 02/26/19 documented as of this encounter
--- OUTSIDE RECORDS SUMMARY | 2024-12-16 11:44 | XMS_ITS | Encounter Summary ---
Author Organization [employer] Address [address] [facility] 7t [place] [address] Care Team Providers Care Steward/Stewardess Lounge Name Role Phone Vanessa Foy MD Primary Care Provide r Encounter Details Date Type Department Care Team (Latest Contact Info) Description 10/15/2018 Abstract [facility] CONVERSIONS Dental, Provider, DDS Social History Tobacco [...] Description 01/29/2025 9:45 AM EDT Office Visit [facility] OPTOMETRY [address] [place] [address] TarDemetrice garcia, OD [address] [place] [address] documented as of this encounter Visit Diagnoses Not on filedocumented in this encounter Care Teams Steward/Stewardess Lounge Relationship Specialty Start Date End Date Vanessa Foy MD [address] [place] [address] PCP - General Family Medicine 02/26/19 documented as of this encounter
--- OUTSIDE RECORDS SUMMARY | 2024-12-16 11:44 | XMS_ITS | Encounter Summary ---
Author Organization [employer] Address [address] [facility] 7t [place] [address] Care Team Providers Care Clerical Investigator Name Role Phone Vanessa Foy MD Primary Care Provide r Reason for Visit * Reason Comments Med Refill Encounter Details Date Type Department Care Team ([facility] st Contact Info) Description 05/25/2024 Refill [facility] CHC MED & PEDS [address] [place] [address] Vanessa Foy MD [address] [place] [address] Gastroesophageal reflux disease without esophagitis; Type 2 diabetes mellitus without complication, without long-term current use of insulin ([facility]); HTN (hypertension), benign Social History Tobacco Use [...] the past 12 months, has t he [email or web address] gas, oil or water company threatened to [...] Description 01/29/2025 9:45 AM EDT Office Visit [facility] OPTOMETRY [address] [place], [place] [phone] Demetrice Davis, OD [address] [place] [address] documented as of this encounter Visit Diagnoses Diagnosis Gastroesophageal reflux disease without esophagitis Esophageal reflux Type 2 diabetes mellitus without complication, without long-term current use of insulin ([facility]) HTN (hypertension), benign Essential hypertension, benign documented in this encounter Additional Health Concerns Assessment Noted Time PHQ-9 Depression Total Score: 1 10/08/19 24 10:58 AM EDT documented as of this encounter Care Teams Clerical Investigator Relationship Specialty Start Date End Date Vanessa Foy MD [address] [place], [place] [phone] PCP - General Family Medicine 02/26/19 documented as of this encounter
--- OUTSIDE RECORDS SUMMARY | 2024-12-16 11:44 | XMS_ITS | Encounter Summary ---
Author Organization [employer] Address [address] [facility] 7t [place] [address] Care Team Providers Care Library Media Assistant Name Role Phone Vanessa Foy MD Primary Care Provide r Reason for Visit * Reason Comments Med Refill Encounter Details Date Type Department Care Team ([facility] st Contact Info) Description 09/13/2023 Refill [facility] MEDICINE [address] [place] [address] Jayda Zhang MD [address] [place] [employer], [place] [phone] Social History Tobacco Use Types Packs/Day Years [...] Description 01/29/2025 9:45 AM EDT Office Visit [facility] OPTOMETRY [address] [place], [place] [phone] TarkaDemetrice, OD [address] [place] [address] documented as of this encounter Visit Diagnoses Not on filedocumented in this encounter Additional Health Concerns Assessment Noted Time PHQ-9 Depression Total Score: 0 08/31/19 23 11:44 AM EDT documented as of this encounter Care Teams Library Media Assistant Relationship Specialty Start Date End Date Vanessa Foy MD [address] [place] [address] PCP - General Family Medicine 02/26/19 documented as of this encounter
--- OUTSIDE RECORDS SUMMARY | 2024-12-16 11:44 | XMS_ITS | Encounter Summary ---
Author Organization [employer] Address [address] [facility] 7t [place] [address] Care Team Providers Care Die Finisher Forging Name Role Phone Vanessa Foy MD Primary Care Provide r Reason for Visit * Reason Comments Med Refill Encounter Details Date Type Department Care Team (Late Contact Info) Description 12/21/2022 Refill [facility] MEDICINE [address] [place], [place] [phone] Deric Rivas MD [address] [place], [place] [phone] Gastroesophageal reflux disease without esophagitis Social History [...] Description 01/29/2025 9:45 AM EDT Office Visit [facility] OPTOMETRY [address] [place], [place] [phone] TarDemetrice garcia, OD [address] [place], [place] [phone] documented as of this encounter Visit Diagnoses Diagnosis Gastroesophageal reflux disease without esophagitis Esophageal reflux documented in this encounter Additional Health Concerns Assessment Noted Time PHQ-9 Depression Total Score: 0 08/31/19 23 11:44 AM EDT documented as of this encounter Care Teams Die Finisher Forging Relationship Specialty Start Date End Date Vanessa Foy MD [address] [place] [address] PCP - General Family Medicine 02/26/19 documented as of this encounter
--- OUTSIDE RECORDS SUMMARY | 2024-12-16 11:44 | XMS_ITS | Encounter Summary ---
Author Organization [employer] Address [address] [facility] 7t [place] [address] Care Team Providers Care Wet Milling Wheel Operator Name Role Phone Vanessa Foy MD Primary Care Provide r Reason for Visit * Reason Onset Date Comments Med Refill 09/25/2024 Encounter Details Date Type Department Care Team ([facility] st Contact Info) Description 09/25/2024 Telephone [facility] MEDICINE [address] [place], [place] [phone] Vanessa Foy MD [address] [place], [place] [phone] Med Refill Social History Tobacco Use Types Packs/Day Years [...] encounter Miscellaneous Notes * Telephone Encounter - Ya Rice LPN - 09/25/2024 12:51 PM EDT Medication sent to [facility] #[id number] on 09/21/24. * Telephone Encounter - Gale Crenshaw - 09/25/2024 12:39 PM EDT TC from pt requesting medication refill. Medications needing refill : pantoprazole (ProtoNix) 40 MG EC tablet To be sent to: [facility]/pharmacy #[id number] documented in this encounter Plan of Treatment Upcoming Encounters Date Type Department Care Team ([facility] st Contact Info) Description 01/29/2025 9:45 AM EDT Office Visit [facility] OPTOMETRY [address] [place], [place] [phone] TarDemetrice garcia, OD [address] [place] [address] documented as of this encounter Visit Diagnoses Not on filedocumented in this encounter Additional Health Concerns Assessment Noted Time PHQ-9 Depression Total Score: 1 10/08/19 24 10:58 AM EDT documented as of this encounter Care Teams Wet Milling Wheel Operator Relationship Specialty Start Date End Date Vanessa Foy MD [address] [place] [address] PCP - General Family Medicine 02/26/19 documented as of this encounter
--- OUTSIDE RECORDS SUMMARY | 2024-12-16 11:44 | XMS_ITS | Encounter Summary ---
Author Organization [employer] Address [address] [facility] 7t [place] [address] Care Team Providers Care Entry Level Software Developer Name Role Phone Vanessa Foy MD Primary Care Provide r Encounter Details Date Type Department Care Team (Latest Contact Info) Description 06/02/2021 Abstract [facility] CONVERSIONS Dental, Provider, DDS Social History Tobacco [...] Description 01/29/2025 9:45 AM EDT Office Visit [facility] OPTOMETRY [address] [place] [address] TarDemetrice garcia, OD [address] [place] [address] documented as of this encounter Visit Diagnoses Not on filedocumented in this encounter Care Teams Entry Level Software Developer Relationship Specialty Start Date End Date Vanessa Foy MD [address] [place], [place] [phone] PCP - General Family Medicine 02/26/19 documented as of this encounter
== END 2024-12-16 11:07 | disposition home or self-care (01) ==
LOC: HO.HCS 10:14
PROVIDERS: PCP Internal Medicine; Visit Provider Internal Medicine
DX: I42.8 Other cardiomyopathies (principal); F79 Unspecified intellectual disabilities
CPT/HCPCS: 93010; 99214; G2211

== ENCOUNTER → 2024-12-16 10:13 | Outpatient (BNVA) | payer OTHER, SELFPAY | PROVIDERS: PCP Internal Medicine; Visit Provider Internal Medicine | DX: I42.8 Other cardiomyopathies (principal); F79 Unspecified intellectual disabilities | CPT/HCPCS: 93005; 99212 ==